=== PATIENT | female | born 1940 | race Caucasian/White ===

== ENCOUNTER 2022-02-24 11:00 | Inpatient (IN) ==
--- NOTE | 2022-02-24 11:55 | Emergency Department Note ---
Impression & Plan Pulmonary edema, Hypoxemia, Acute dyspnea, Pulmonary nodule ED Provider Note NAME: BRYAN CORNEJO AGE: 81 SEX: F : 1940 ARRIVES VIA: Walk-In INFORMANT: Patient, ED PROVIDER(S): Dell De Oliveira MD Chief Complaint: Abdominal discomfort, shortness of breath, cough HPI: Patient presents with multiple concerns today including abdominal pain nausea shortness of breath and cough. The patient initially began having symptoms approximate 1 week ago and had been seen at [facility] for flulike symptoms and had been prescribed amoxicillin. The patient states that her symptoms been fairly constant with really no improvement overall. The patient states that she does feel better in the mornings but this seems to worsen throughout the day. Patient states that her cough is nonproductive. The patient has been more fatigable with decreased p.o. intake is trying to take liquids down but is certainly not eating as much. Patient is not taking anything other than the amoxicillin for her symptoms. The patient denies any dysuria or hematuria the patient's had a recent normal bowel movement. Patient denies any vomiting but has had nausea. No chest pains. Patient denies any leg swelling or calf pain. No history of DVT or PE. Patient states that she does have some upper abdominal discomfort but does not qualify this as pain. Patient does not use alcohol. The patient has no prior history of heart or lung disease and currently does not have a PCP. ROS: See HPI for pertinent positives and negatives. A total of 10 systems were reviewed and otherwise negative. Past medical history: See below Surgical history: See below Social history: See below Physical Exam: GENERAL: NAD, wearing a mask, non-toxic. EYE EXAM: Normal conjunctiva. PERRL, no anisocoria and EOM's grossly intact w/o pain. NECK: Supple, no nuchal rigidity, no adenopathy, non-tender. No signs of meningismus. FROM of the neck with good chin to chest and neck extension. No stridor. LUNGS: Clear to auscultation. Normal chest wall mechanics. HEART: NSR, no MRG. ABDOMEN: Abdomen soft, non-tender, normo-active bowel sounds, no masses, no rebound or guarding. BACK: No CVA TTP. SKIN: No rashes and no bruising. UPPER EXTREMITIES: Upper extremities are grossly normal. LOWER EXTREMITIES: Grossly normal, no edema. NEURO EXAM: A&O x3, cranial nerves II-XII grossly intact, normal speech, moves all 4 extremities. Differential diagnoses: Appendicitis, ovarian cyst, ovarian torsion, ectopic , TOA, PID, infections, diverticulitis, UTI, obstruction, mesenteric ischemia, aortic pathology, inflammatory bowel disease, renal colic, PUD, pancreatitis, biliary pathology, hernia, volvulus, constipation, as well as other pathologies. Course: Patient was seen and evaluated the bedside. Full history physical exam was performed. EKG interpreted by me Normal sinus rhythm, rate 91, normal intervals, normal axis, ST depressions in the lateral leads. No priors for comparison. Imaging Studies: See Below Cardiac monitoring: An order was placed for continuous cardiac monitoring. The monitor shows a rate of 67 with sinus rhythm. MDM: Blood work was obtained and the patient did have a CT of the abdomen pelvis completed, COVID swab and chest x-ray. EKG and troponin obtained to rule out possible atypical chest pain symptoms. The patient has no prior history of heart or lung disease per patient. Patient did receive IV fluids and IV Zofran. The patient has a normal white count with mild anemia hemoglobin 11.6 with mild thrombocytopenia at 103. Kidney function unremarkable but with hypokalemia 3.3. The patient does have mild transaminitis. Patient's urinalysis does not show evidence of obvious infection and COVID is negative. The patient's initial chest film does show concern for possible pneumonitis versus pulmonary edema. CT abdomen pelvis shows no bowel obstruction with a normal appendix. The patie nt does have some cardiomegaly with pulmonary edema and trace pleural effusions. The patient also does have a pulmonary nodule. I did have the patient undergo an ambulatory pulse ox trial and the patient did desat to 84%. At rest the patient's sats in the low 90s. The patient does not appear in respiratory distress at rest. Patient was ordered a dose of Lasix and the patient was admitted to the medicine service by Dr. Gonzalez. A BNP was ordered and this is elevated at 415. Past Med/Surg History Medical History (Updated 02/24/22 @ 17:48 by Dell De Oliveira MD) Meniere disease Surgical History (Updated 02/24/22 @ 17:47 by Dell De Oliveira MD) No pertinent past surgical history Social History (Updated 02/24/22 @ 17:47 by Dell De Oliveira MD) Smoking Status: Never smoker Hx Alcohol Use: No Hx Substance Use: No Feels Safe at Home: Yes Allergies Allergies Allergy/AdvReac Type Severity Reaction Status Date / Time No Known Allergies Allergy Verified 02/24/22 15:59 Home Meds Home Medications Medication Instructions Recorded Confirmed amoxicillin 875 mg tablet 875 mg PO BID 02/24/22 02/24/22 magnesium 250 mg tablet 0 mg PO DAILY 02/24/22 02/24/22 multivitamin 1 tab PO DAILY 02/24/22 02/24/22 niacin 250 mg tablet 0 mg PO DAILY 02/24/22 02/24/22 Results & Data (ED) Vital Signs Vital Signs - 24 hr 02/24/22 11:17 02/24/22 11:01 02/24/22 12:23 Temperature 36.3 C L Temperature Source Temporal Artery Scan Pulse Rate 97 H 72 Pulse Rate [Apical] 76 Respiratory Rate 20 16 20 Respiratory Effort / Characteristics Non-Labored Respiratory Depth Normal Blood Pressure 179/98 H Blood Pressure [Left Arm] 179/96 H Blood Pressure Mean 125 Blood Pressure Mean [Left Arm] 123 Pulse Oximetry 95 97 92 Oxygen Delivery Method Room Air Room Air Sepsis Recent Fever Within 48 Hours No Sepsis New/Unexplained Change in Mental Status N/A Sepsis Action Taken by Nursing No Action Required 02/24/22 13:04 02/24/22 15:00 Temperature Temperature Source Pulse Rate Pulse Rate [Apical] 66 Respiratory Rate 16 20 Respiratory Effort / Characteristics Respiratory Depth Blood Pressure Blood Pressure [Left Arm] 159/83 H Blood Pressure Mean Blood Pressure Mean [Left Arm] 108 Pulse Oximetry 91 84 L Oxygen Delivery Method Room Air Sepsis Recent Fever Within 48 Hours Sepsis New/Unexplained Change in Mental Status Sepsis Action Taken by Snf Medications Current Medication List: was personally reviewed by me Laboratory Data Attestation: I reviewed the patient's lab results. Result diagrams: 02/24/22 11:54 02/24/22 11:54 Lab Results 02/24/22 02/24/22 02/24/22 Range/Units 11:23 11:54 11:54 WBC 8.83 (4.8-10.8) K/ul RBC 3.72 L (3.93-5.22) M/uL Hgb 11.6 L (12.0-16.0) g/dl Hct 34.7 (34.1-44.9) % MCV 93.3 (80.0-100.0) fL MCH 31.2 (25.0-34.0) pg MCHC 33.4 (32.0-36.0) g/dL RDW Std Deviation 46.7 H (36.4-46.3) fL RDW Coeff of Yeny 13.7 (11.5-14.5) % Plt Count 103 L (130-400) K/uL MPV 10.8 (9.4-12.3) fL Neutrophils % (Manual) 45 % Lymphocytes % (Manual) 14 % Reactive Lymphs % (Man) 40 % Monocytes % (Manual) 1 % Neutrophils # (Manual) 3.97 (1.4-6.5) K/uL Total Absolute Neuts 3.97 (1.4-6.5) K/uL Lymphocytes # (Manual) 1.24 (1.2-3.4) K/uL Reactive Lymphs # 3.53 K/uL Total Abs Lymphocytes 4.77 H (1.2-3.4) K/uL Monocytes # (Manual) 0.09 L (0.24-0.82) K/uL Sodium 140 (136-145) mmol/L Potassium 3.3 L (3.5-5.1) mmol/L Chloride 102 (98-107) mmol/L Carbon Dioxide 29 (21-32) mmol/L Anion Gap 9 (3-11) BUN 15 (6-23) mg/dl Creatinine 0.63 (0.6-1.2) mg/dl Est Cr Clr Drug Dosing Not Reportable Est GFR ( Amer) 96.1 ml/min Est GFR (Non-Af Amer) 82.9 ml/min BUN/Creatinine Ratio 23.8 H (10-20) Glucose 104 H (70-99(Fasting)) mg/dl Calcium 9.2 (8.5-10.1) mg/dl Total Bilirubin 0.7 (0.2-1.0) mg/dl AST 78 H (13-39) U/L ALT 93 H (7-52) U/L Alkaline Phosphatase 105 H (34-104) U/L Troponin I High Sens 7.9 (0-14) pg/ml B-Natriuretic Peptide (0-100) pg/ml Total Protein 7.7 (6.0-8.3) gm/dl Albumin 3.5 (3.4-5.0) gm/dl Globulin 4.2 H (2.5-4.0) gm/dl Albumin/Globulin Ratio 0.8 L (0.9-2) Lipase 16 (11-82) U/L Urine Color Urine Appearance (Clear) Urine pH (4.5-7.5) Ur Specific [place] (1.000-1.030) Urine Protein (Negative) Urine Glucose (UA) (Negative) Urine Ketones (Negative) Urine Blood (Negative) Urine Nitrite (Negative) Urine Bilirubin (Negative) Urine Urobilinogen (Negative) Ur Leukocyte Esterase (Negative) SARS-CoV-2, RNA, NAAT NEGATIVE (NEGATIVE) 02/24/22 02/24/22 Range/Units 13:49 15:53 WBC (4.8-10.8) K/ul RBC (3.93-5.22) M/uL Hgb (12.0-16.0) g/dl Hct (34.1-44.9) % MCV (80.0-100.0) fL MCH (25.0-34.0) pg MCHC (32.0-36.0) g/dL RDW Std Deviation (36.4-46.3) fL RDW Coeff of Yeny (11.5-14.5) % Plt Count (130-400) K/uL MPV (9.4-12.3) fL Neutrophils % (Manual) % Lymphocytes % (Manual) % Reactive Lymphs % (Man) % Monocytes % (Manual) % Neutrophils # (Manual) (1.4-6.5) K/uL Total Absolute Neuts (1.4-6.5) K/uL Lymphocytes # (Manual) (1.2-3.4) K/uL Reactive Lymphs # K/uL Total Abs Lymphocytes (1.2-3.4) K/uL Monocytes # (Manual) (0.24-0.82) K/uL Sodium (136-145) mmol/L Potassium (3.5-5.1) mmol/L Chloride (98-107) mmol/L Carbon Dioxide (21-32) mmol/L Anion Gap (3-11) BUN (6-23) mg/dl Creatinine (0.6-1.2) mg/dl Est Cr Clr Drug Dosing Est GFR ( Amer) ml/min Est GFR (Non-Af Amer) ml/min BUN/Creatinine Ratio (10-20) Glucose (70-99(Fasting)) mg/dl Calcium (8.5-10.1) mg/dl Total Bilirubin (0.2-1.0) mg/dl AST (13-39) U/L ALT (7-52) U/L Alkaline Phosphatase (34-104) U/L Troponin I High Sens (0-14) pg/ml B-Natriuretic Peptide 415 H (0-100) pg/ml Total Protein (6.0-8.3) gm/dl Albumin (3.4-5.0) gm/dl Globulin (2.5-4.0) gm/dl Albumin/Globulin Ratio (0.9-2) Lipase (11-82) U/L Urine Color Yellow Urine Appearance Clear (Clear) Urine pH 5.5 (4.5-7.5) Ur Specific [place] 1.008 (1.000-1.030) Urine Protein Negative (Negative) Urine Glucose (UA) Negative (Negative) Urine Ketones Negative (Negative) Urine Blood Negative (Negative) Urine Nitrite Negative (Negative) Urine Bilirubin Negative (Negative) Urine Urobilinogen Negative (Negative) Ur Leukocyte Esterase Negative (Negative) SARS-CoV-2, RNA, NAAT (NEGATIVE) Administered Medications Discontinued Medications Furosemide (Furosemide 40 Mg/4 Ml Vial) 40 mg IV ONE ONE Stop: 02/24/22 15:10 Last Admin: 02/24/22 15:29 Dose: 40 mg Documented By: JENNIFER Sodium Chloride (Nss 1000ml) 1,000 mls @ 999 mls/hr IV .Q1H1M STA Stop: 02/24/22 13:13 Last Admin: 02/24/22 12:27 Dose: 999 mls/hr Documented By: JENNIFER Ioversol (Ioversol 350 Mg 100ml Prefilled Syringe) 93 ml IV ONCE ONE Stop: 02/24/22 13:52 Last Admin: 02/24/22 13:51 Dose: 93 ml Documented By: ÁNGEL Losartan Potassium (Losartan Potassium 25 Mg Tab) 25 mg PO NOW STA Stop: 02/24/22 16:03 Last Admin: 02/24/22 16:17 Dose: 25 mg Documented By: JENNIFER Ondansetron HCl (Ondansetron Inj 2 Mg/Ml 2 Ml Vial) 4 mg IV NOW STA Stop: 02/24/22 12:14 Last Admin: 02/24/22 12:27 Dose: 4 mg Documented By: JENNIFER Imaging Data Radiologist's Impression: Abdomen/Pelvis CT 02/24/22 12:[address] WITH IV CONTRAST CT DOSE: 309.39 mGy.cm HISTORY: Acute upper abdominal pain upper ab pain TECHNIQUE: Multiaxial CT images of the abdomen and pelvis were performed following the IV administration of 93 cc of Optiray, A dose lowering technique was utilized adhering to the principles of ALARA. COMPARISON STUDY: Chest radiograph of same day FINDINGS: Cardiomegaly. Partially imaged 1.5 cm nodular opacity of the right middle lobe, image 6 series 3. Intralobular septal thickening with subsegmental bibasilar atelectasis. Trace pleural effusions. There is no pneumatosis or pneumoperitoneum. The spleen is enlarged measuring up to 13.4 cm in length. Unremarkable pancreas and adrenal glands. The gallbladder is unremarkable. Portal edema is likely secondary to overhydration. The liver is enlarged measuring up to 19.4 cm in length. Patency of the hepatic and portal veins. Symmetric enhancement of the kidneys. No hydronephrosis. Nonspecific urinary bladder wall thickening. No adnexal mass lesions identified. Atherosclerosis of the aorta without aneurysm. There is no lymphadenopathy identified. Mild nonspecific distal esophageal wall thickening. No bowel obstruction. Noninflamed appendix. Tiny fat filled umbilical hernia, diastases of 10 mm. Unremarkable soft tissues. Degenerative changes of the spine, pelvis and hips. IMPRESSION: 1. No bowel obstruction or bowel wall thickening. Normal appendix. 2. Hepatosplenomegaly. 3. Cardiomegaly with pulmonary edema and trace pleural effusions. 4. Partially imaged 1.5 cm nodular opacity of the right middle lobe. 3 month follow-up chest CT recommended. 5. Additional findings as above. ACT 112: Negative or not required by law. The above report was generated using voice recognition software. It may contain grammatical, syntax or spelling errors. Electronically signed by: Dharmesh Estrada M.D. 02/24/2022 2:32 PM Chest X-Ray 02/24/22 12:13 XR chest 1V portable HISTORY: 81 years-old Female cough acute cough COMPARISON: None TECHNIQUE: AP view of the chest FINDINGS: Cardiac silhouette is enlarged. Pulmonary vascular congestion with mild interstitial coarsening. No pneumothorax, large pleural effusion or lobar airspace consolidation. Degenerative changes of the shoulders and spine. IMPRESSION: Cardiomegaly with interstitial coarsening suggestive of pulmonary edema versus interstitial pneumonitis. ACT 112: Negative or not required by law. The above report was generated using voice recognition software. It may contain grammatical, syntax or spelling errors. Electronically signed by: Dharmesh Estrada M.D. 02/24/2022 1:18 PM Discharge Plan Visit Data Chief Complaint: Abdominal Pain Stated Complaint: ABDOMINAL PAIN, FLU-LIKE SYMPTOMS ED Provider: Dell De Oliveira Discharge Problem: Pulmonary edema, Hypoxemia, Acute dyspnea, Pulmonary nodule Patient Disposition: Admitted As Inpatient Forms Stand Alone Forms: [facility] Prescriptions Prescriptions: No Action multivitamin [Hair,Nails and Skin Vitamin] Tablet 1 tab PO DAILY amoxicillin 875 mg tablet 875 mg PO BID Rx Instructions: ORDERED 02/22/22 FOR 10 DAYS. magnesium 250 mg Tablet 0 mg PO DAILY Rx Instructions: PT UNSURE OF STRENGTH niacin 250 mg Tablet 0 mg PO DAILY Rx Instructions: PT UNSURE OF STRENGTH Referrals Referrals: PCP,NO [Primary Care Provider] -
[2022-02-24] MEDS ORDERED: ONDANSETRON INJ 2 MG/ML 2 ML VIAL IV STA (12:13)
[2022-02-24] MEDS ORDERED: SODIUM CHLORIDE 0.9% 1000ML 1,000 ML IV STA (12:13)
[2022-02-24 12:40] LABS: Hematocrit (blood only) 34.7 % (34.1-44.9); Hemoglobin 11.6 g/dl (12.0-16.0); Mean Corpuscular Hemoglobin 31.2 pg (25.0-34.0); Mean Corpuscular Hgb Conc 33.4 g/dL (32.0-36.0); Mean Corpuscular Volume 93.3 fL (80.0-100.0); Mean Platelet Volume 10.8 fL (9.4-12.3); Platelet Count 103 K/uL (130-400); RDW Coefficient of Variation 13.7 % (11.5-14.5); RDW Standard Deviation 46.7 fL (36.4-46.3); Red Blood Count 3.72 M/uL (3.93-5.22); White Blood Count 8.83 K/ul (4.8-10.8)
[2022-02-24 13:08] LABS: Alanine Aminotransferase 93 U/L (7-52); Albumin Globulin Ratio 0.8 (0.9-2); Albumin Level 3.5 gm/dl (3.4-5.0); Alkaline Phosphatase 105 U/L (34-104); Anion Gap 9 (3-11); Aspartate Aminotransferase 78 U/L (13-39); BUN Creatinine Ratio 23.8 (10-20); Bilirubin,Total 0.7 mg/dl (0.2-1.0); Blood Urea Nitrogen 15 mg/dl (6-23); Calcium 9.2 mg/dl (8.5-10.1); Carbon Dioxide 29 mmol/L (21-32); Chloride 102 mmol/L (98-107); Est GFR (African American) 96.1 ml/min; Est GFR (Non-African American) 82.9 ml/min; Globulin 4.2 gm/dl (2.5-4.0); Glucose 104 mg/dl (70-99(Fasting)); Lipase 16 U/L (11-82); Potassium 3.3 mmol/L (3.5-5.1); Sodium 140 mmol/L (136-145); Total Protein 7.7 gm/dl (6.0-8.3)
[2022-02-24 13:09] LABS: Troponin I High Sensitivity 7.9 pg/ml (0-14)
[2022-02-24 13:10] LABS: ALC (manual) 4.77 K/uL (1.2-3.4); ANC (manual) 3.97 K/uL (1.4-6.5); Lymphocytes # (manual) 1.24 K/uL (1.2-3.4); Lymphocytes % (manual) 14 %; Monocytes # (manual) 0.09 K/uL (0.24-0.82); Monocytes % (manual) 1 %; Neutrophils # (manual) 3.97 K/uL (1.4-6.5); Neutrophils % (manual) 45 %; Reactive Lymphocytes # (manual) 3.53 K/uL; Reactive Lymphocytes % (manual) 40 %
--- NOTE | 2022-02-24 13:19 | XRay Report ---
XR chest 1V portable HISTORY: 81 years-old Female cough acute cough COMPARISON: None TECHNIQUE: AP view of the chest FINDINGS: Cardiac silhouette is enlarged. Pulmonary vascular congestion with mild interstitial coarsening. No p neumothorax, large pleural effusion or lobar airspace consolidation. Degenerative changes of the shou lders and spine. IMPRESSION: Cardiomegaly with interstitial coarsening suggestive of pulmonary edema versus interstiti al pneumonitis. ACT 112: Negative or not required by law. The above report was generated using voice recognition software. It may contain grammatical, syntax o r spelling errors. Electronically signed by: Dharmesh Estrada M.D. 02/24/2022 1:18 PM
[2022-02-24] MEDS ORDERED: IOVERSOL 350 MG 100mL Prefilled Syringe IV ONE (13:51)
[2022-02-24 13:56] LABS: Appearance Urine Clear (Clear); Bilirubin Urine Negative (Negative); Blood Urine Negative (Negative); Color Urine Yellow; Glucose Urine UA Negative (Negative); Ketones Urine Negative (Negative); Leukocyte Esterase Urine Negative (Negative); Nitrite Urine Negative (Negative); Protein Urine Negative (Negative); Specific Gravity Urine 1.008 (1.000-1.030); Urobilinogen Urine Negative (Negative); pH Urine 5.5 (4.5-7.5)
--- NOTE | 2022-02-24 14:35 | CT Scan Report ---
ABDOMEN AND PELVIS CT WITH IV CONTRAST CT DOSE: 309.39 mGy.cm HISTORY: Acute upper abdominal pain upper ab pain TECHNIQUE: Multiaxial CT images of the abdomen and pelvis were performed following the IV administrat ion of 93 cc of Optiray, A dose lowering technique was utilized adhering to the principles of ALARA. COMPARISON STUDY: Chest radiograph of same day FINDINGS: Cardiomegaly. Partially imaged 1.5 cm nodular opacity of the right middle lobe, image 6 ser ies 3. Intralobular septal thickening with subsegmental bibasilar atelectasis. Trace pleural effusion s. There is no pneumatosis or pneumoperitoneum. The spleen is enlarged measuring up to 13.4 cm in miguel gth. Unremarkable pancreas and adrenal glands. The gallbladder is unremarkable. Portal edema is likely secondary to overhydration. The liver is enlarged measuring up to 19.4 cm in l ength. Patency of the hepatic and portal veins. Symmetric enhancement of the kidneys. No hydronephros is. Nonspecific urinary bladder wall thickening. No adnexal mass lesions identified. Atherosclerosis of the aorta without aneurysm. There is no lymphadenopathy identified. Mild nonspecific distal esophageal wall thickening. No bowel obstruction. Noninflamed appendix. Tiny fat filled umbilical hernia, diastases of 10 mm. Unremarkable soft tissues. Degenerative changes of t he spine, pelvis and hips. IMPRESSION: 1. No bowel obstruction or bowel wall thickening. Normal appendix. 2. Hepatosplenomegaly. 3. Cardiomegaly with pulmonary edema and trace pleural effusions. 4. Partially imaged 1.5 cm nodular opacity of the right middle lobe. 3 month follow-up chest CT recom mended. 5. Additional findings as above. ACT 112: Negative or not required by law. The above report was generated using voice recognition software. It may contain grammatical, syntax o r spelling errors. Electronically signed by: Dharmesh sEtrada M.D. 02/24/2022 2:32 PM
[2022-02-24] MEDS ORDERED: FUROSEMIDE 40 MG/4 ML VIAL IV ONE (15:09)
[2022-02-24] MEDS ORDERED: ACETAMINOPHEN 325 MG TAB PO PRN (15:56)
[2022-02-24] MEDS ORDERED: POLYETHYLENE (MIRALAX) 17 GM PACK PO PRN (15:56)
[2022-02-24] MEDS ORDERED: MAGNESIUM HYDROXIDE SUSP 30 ML UDC PO PRN (15:56)
--- NOTE | 2022-02-24 15:58 | History & Physical Report ---
Date of Service February 24, 2022 Assessment & Plan (1) Pulmonary edema: Plan Not feeling well Dyspnea on exertion Stomach upset Pulmonary edema Patient came in with feeling of not feeling well, with fever/chills/myalgia a week ago [employer], was prescribed amoxicillin on Friday at [facility]. In the ED, patient was saturating in low 90s, was saturating at 84% on room air with ambulation. Admitting CXR with cardiomegaly with interstitial coarsening suggestive of pulmonary edema versus interstitial pneumonitis. Admitting CTAP with cardiomegaly with pulmonary edema and trace pleural effusions. Partially imaged 1.5 cm nodule opacity of the right middle lobe. 3 months follow-up CT chest recommended. Patient received a dose of Lasix in the ED. Admitting troponin and EKG WNL, patient with no chest pain. Stomach upset likely secondary to amoxicillin use, will monitor patient off of antibiotic while in hospital. Follow-up BNP, echo ordered, possible cardiology consult after echo result. Reassess for Lasix in the morning after reevaluation. Monitor and replete electrolytes as appropriate. HTN: Blood pressure elevated at presentation, will start small dose of losartan. Continue to monitor. Right middle lobe lung nodule: See above, 3-month follow-up CT chest recommended. DVT prophylaxis: Lovenox History of Present Illness Chief Complaint: Not feeling well 1 week [employer] Primary Care Provider: NO PCP 81-year-old lady with past medical history of Mnire's disease [on triamterene HCTZ in the past], no other known medical condition, not on any home medications currently presented to ED 02/24 with complaint of not feeling well since 1 weeks [employer]. Patient started feeling some low-grade fever with chills and myalgia almost 7 days ago [employer], tried different [id number] medication with no relief, went to [facility] Friday where she was prescribed amoxicillin, patient still complaining of feeling about the same, upper belly discomfort, feeling tired, dyspnea with exertion. Per discussion with the ED doctor, patient is maintaining saturation in low 90s on room air at rest, and 84% on room air at ambulation. Patient denies any chest pain or tightness, any sore throat, any cough, any acute changes in bowel or bladder habit, reports appetite has been good. Patient denies any known cardiac history in the family, no diabetic history in the family. Patient denies any use of smoking tobacco/using alcohol/using recreational drugs. Allergies Allergy/AdvReac Type Severity Reaction Status Date / Time No Known Allergies Allergy Verified 02/24/22 15:59 Home Medications Medication Instructions Recorded Confirmed Type amoxicillin 875 mg tablet 875 mg PO BID 02/24/22 02/24/22 History magnesium 250 mg tablet 0 mg PO DAILY 02/24/22 02/24/22 History multivitamin 1 tab PO DAILY 02/24/22 02/24/22 History niacin 250 mg tablet 0 mg PO DAILY 02/24/22 02/24/22 History Past Med/Surg History Social History Smoking Status: Never smoker Feels Safe at Home: Yes Review of Systems Review of Systems: Negative otherwise mentioned in HPI. Physical Exam Physical Exam: GENERAL: Alert and oriented x3. NAD, on RA. HEENT: No pallor, no icterus. Pupils equal, round and reactive to light. Oral mucosa moist. NECK: No JVD, no neck masses. HEART: S1 and S2 heard. Regular rate and rhythm. No murmur, no gallop. RESPIRATORY SYSTEM: Normal AP diameter. No accessory muscle use. No wheezing, no crackles. ABDOMEN: Soft, bowel sounds present, nontender, no distention. CENTRAL NERVOUS SYSTEM: No facial droop. Speech is clear. Obeys simple commands. Moves extremities. EXTREMITIES: No edema, no erythema seen. Results & Data Results & Data ([facility]) Vital Signs (Past 12 Hours) Vital Signs Temp Pulse Pulse Resp BP BP Pulse Ox 02/24/22 15:00 20 84 L 02/24/22 13:04 66 16 159/83 H 91 02/24/22 12:23 72 20 92 02/24/22 11:01 76 16 179/96 H 97 02/24/22 11:17 36.3 C L 97 H 20 179/98 H 95 O2 Del Method 02/24/22 15:00 Room Air 02/24/22 13:04 02/24/22 12:23 Room Air 02/24/22 11:01 02/24/22 11:17 Room Air
[2022-02-24] MEDS ORDERED: LOSARTAN POTASSIUM 25 MG TAB PO STA (16:02)
[2022-02-24] MEDS ORDERED: Patient's HEIGHT &/or WEIGHT Needed SCH (16:30)
[2022-02-24] MEDS: ADVANCED PROBIOTIC 1250 MG CAPSULE PO SCH (21:53)
--- NOTE | 2022-02-25 05:55 | Electrocardiogram Report ---
Test Reason : Blood Pressure : / mmHG Vent. Rate : 091 BPM Atrial Rate : 091 BPM P-R Int : 156 ms QRS Dur : 084 ms QT Int : 348 ms P-R-T Axes : 065 -03 055 degrees QTc Int : 428 ms Normal sinus rhythm Cannot rule out Anterior infarct , age undetermined Nonspecific ST abnormality Abnormal ECG No previous ECGs available Confirmed by Joselito Ayala ([id number]) on 02/25/2022 5:55:22 AM Referred By: REFERRED SELF Confirmed By:Joselito Ayala
[2022-02-25] MEDS ORDERED: POTASSIUM CHLORIDE CRTAB 20 MEQ TABCR PO STA ×2 (07:59→15:31)
[2022-02-25] MEDS: ADVANCED PROBIOTIC 1250 MG CAPSULE PO SCH (08:14)
[2022-02-25] MEDS: LOSARTAN POTASSIUM 25 MG TAB PO SCH (08:15)
[2022-02-25] MEDS: ENOXAPARIN INJ 40 MG/0.4 ML SYR SQ SCH (08:15)
[2022-02-25] MEDS: MULTIVITAMIN TAB PO SCH (08:15)
[2022-02-25] MEDS: MAGNESIUM OXIDE 400 MG TAB PO SCH (08:15)
[2022-02-25] MEDS ORDERED: FUROSEMIDE INJ 20 MG/2 ML VIAL IV ONE (09:54)
[2022-02-25 10:12] LABS: Hematocrit (blood only) 33.4 % (34.1-44.9); Hemoglobin 11.4 g/dl (12.0-16.0); Mean Corpuscular Hemoglobin 30.8 pg (25.0-34.0); Mean Corpuscular Hgb Conc 34.1 g/dL (32.0-36.0); Mean Corpuscular Volume 90.3 fL (80.0-100.0); Mean Platelet Volume 10.1 fL (9.4-12.3); Platelet Count 159 K/uL (130-400); RDW Coefficient of Variation 13.6 % (11.5-14.5); RDW Standard Deviation 44.9 fL (36.4-46.3); White Blood Count 7.28 K/ul (4.8-10.8)
[2022-02-25 10:39] LABS: BUN Creatinine Ratio 18.3 (10-20); Calcium 9.2 mg/dl (8.5-10.1); Chol HDL Ratio 5.9 (0-5); Creatinine Clr Calc Pharmacy 54.6 ml/min; Est GFR (African American) 91.3 ml/min; Est GFR (Non-African American) 78.8 ml/min; Magnesium 1.7 mg/dl (1.7-2.4); Phosphorus 3.1 mg/dl (2.5-4.9); Potassium 3.4 mmol/L (3.5-5.1)
--- NOTE | 2022-02-25 15:35 | Electrocardiogram Report ---
Test Reason : Blood Pressure : / mmHG Vent. Rate : 061 BPM Atrial Rate : 061 BPM P-R Int : 136 ms QRS Dur : 086 ms QT Int : 432 ms P-R-T Axes : 069 019 070 degrees QTc Int : 434 ms Normal sinus rhythm with sinus arrhythmia Low voltage QRS Borderline ECG When compared with ECG of 24-FEB-2022 11:34, Vent. rate has decreased BY 30 BPM Confirmed by Kamaljit Pop ([id number]) on 02/25/2022 3:35:24 PM Referred By: REFERRED SELF Confirmed By:Kamaljit Pop
--- NOTE | 2022-02-25 15:37 | Hospitalist Progress Note ---
Date of Service February 25, 2022 Assessment & Plan (1) Pulmonary edema: Plan Not feeling well Dyspnea on exertion Stomach upset Pulmonary edema, etiology not known at the moment, likely secondary to excessive hydration due to general illness. Patient came in with feeling of not feeling well, with fever/chills/myalgia a week ago [employer], was prescribed amoxicillin on Friday at [employer]. In the ED, patient was saturating in low 90s, was saturating at 84% on room air with ambulation. Admitting CXR with cardiomegaly with interstitial coarsening suggestive of pulmonary edema versus interstitial pneumonitis. Admitting CTAP with cardiomegaly with pulmonary edema and trace pleural effusions. Partially imaged 1.5 cm nodule opacity of the right middle lobe. 3 months follow-up CT chest recommended. Patient received a dose of Lasix in the ED. Admitting troponin and EKG WNL, patient with no chest pain. Stomach upset likely secondary to amoxicillin use, will monitor patient off of antibiotic while in hospital --> patient reports resolution of stomach upset. BNP elevated at 415, echo done with ejection fraction of 60 to 65%, normal left ventricular systolic function/normal LV size. Patient with some bibasilar rales today, given another dose of IV Lasix, monitor and replete electrolytes as appropriate. Fluid restriction instituted for the time being. Reassess for Lasix in the morning after reevaluation. Patient reports improving dyspnea on exertion. Likely 2 step test tomorrow. HTN: Blood pressure elevated at presentation, will start small dose of losartan. Continue to monitor. Blood pressure has been better controlled. Right middle lobe lung nodule: See above, 3-month follow-up CT chest recommended . DVT prophylaxis: Lovenox PT/OT, CM to assist with DC planning. Likely will need two-step test prior to discharge tomorrow. Admission and Anticipated Discharge Date Admission Date: February 24, 2022 Subjective Patient seen and examined at bedside as a follow-up for pulmonary edema and weakness and dyspnea on exertion. Patient was lying in bed, on room air, NAD, denied any new acute event overnight. Patient reports eating okay and moving bowels okay. Patient reports feeling better, patient denies any stomach upset today, patient reports less short of breath with walking around today. Patient denies any fever/chills/headache/dizziness/sore throat/cough/acute changes in her bowel or bladder habits/other review of symptoms. Physical Exam Physical Exam: GENERAL: Alert and oriented x3. NAD, on RA. HEENT: No pallor, no icterus. Pupils equal, round and reactive to light. Oral mucosa moist. NECK: No JVD, no neck masses. HEART: S1 and S2 heard. Regular rate and rhythm. No murmur, no gallop. RESPIRATORY SYSTEM: Normal AP diameter. No accessory muscle use. No wheezing, b/b rales. ABDOMEN: Soft, bowel sounds present, nontender, no distention. CENTRAL NERVOUS SYSTEM: No facial droop. Speech is clear. Obeys simple commands. Moves extremities. EXTREMITIES: No edema, no erythema seen. Results & Data Results & Data ([facility]) Vital Signs (Past 12 Hours) Vital Signs Temp Pulse Resp BP Pulse Ox O2 Del Method 02/25/22 11:49 36.8 C 61 123/66 91 Room Air 02/25/22 09:53 Room Air 02/25/22 07:55 36.8 C 60 19 152/76 H 91 Room Air 02/25/22 04:10 36.5 C 57 L 18 123/69 90 Room Air
[2022-02-26] MEDS: ADVANCED PROBIOTIC 1250 MG CAPSULE PO SCH (07:40)
[2022-02-26] MEDS: LOSARTAN POTASSIUM 25 MG TAB PO SCH (07:40)
[2022-02-26] MEDS: ENOXAPARIN INJ 40 MG/0.4 ML SYR SQ SCH (07:40)
[2022-02-26] MEDS: MAGNESIUM OXIDE 400 MG TAB PO SCH (07:40)
[2022-02-26] MEDS: MULTIVITAMIN TAB PO SCH (07:40)
[2022-02-26 09:42] LABS: BUN Creatinine Ratio 19.7 (10-20); Calcium 9.2 mg/dl (8.5-10.1); Creatinine Clr Calc Pharmacy 50.7 ml/min; Est GFR (African American) 84.1 ml/min; Est GFR (Non-African American) 72.5 ml/min; Potassium 4.1 mmol/L (3.5-5.1)
--- NOTE | 2022-02-26 12:59 | Discharge Summary ---
Discharge Summary Date of Service February 26, 2022 Notes For Next Care Provider Patient will need PCP follow-up within a week time, and likely blood test CBC/CMP/magnesium level. Patient was found to have hypertension in hospital, patient was started on losartan, patient asked to maintain blood pressure log, patient will need evaluation/adjustment of her blood pressure medication. For her right middle lobe lung nodule, patient will need 3-month follow-up with CT chest. Medication Changes From Visit Losartan has been added. 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 Patient started feeling some low-grade fever with chills and myalgia almost 7 days ago [employer] SUPERVISOR, tried different [id number] medication with no relief, went to [email or web address] on Friday where she was prescribed amoxicillin, patient still complaining of feeling about the same, upper belly discomfort, feeling tired, dyspnea with exertion. Per discussion with the ED doctor, patient is maintaining saturation in low 90s on room air at rest, and 84% on room air at ambulation. Patient denies any chest pain or tightness, any sore throat, any cough, any acute changes in bowel or bladder habit, reports appetite has been good. Patient denies any known cardiac history in the family, no diabetic history in the family. Patient denies any use of smoking tobacco/using alcohol/using recreational drugs. Admission Exam Per Admitting Provider GENERAL: Alert and oriented x3. NAD, on RA. HEENT: No pallor, no icterus. Pupils equal, round and reactive to light. Oral mucosa moist. NECK: No JVD, no neck masses. HEART: S1 and S2 heard. Regular rate and rhythm. No murmur, no gallop. RESPIRATORY SYSTEM: Normal AP diameter. No accessory muscle use. No wheezing, no crackles. ABDOMEN: Soft, bowel sounds present, nontender, no distention. CENTRAL NERVOUS SYSTEM: No facial droop. Speech is clear. Obeys simple commands. Moves extremities. EXTREMITIES: No edema, no erythema seen. Principal Dx & Hospital Course #1 = Principal Diagnosis (1) Pulmonary edema: Plan 81-year-old lady was managed for the following while in hospital: Not feeling well Dyspnea on exertion Stomach upset Pulmonary edema, etiology not known at the moment, likely secondary to excessive hydration due to general illness. 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 In the ED, patient was saturating in low 90s, was saturating at 84% on room air with ambulation. Admitting CXR with cardiomegaly with interstitial coarsening suggestive of pulmonary edema versus interstitial pneumonitis. Admitting CTAP with cardiomegaly with pulmonary edema and trace pleural effusions. Partially imaged 1.5 cm nodule opacity of the right middle lobe. 3 months follow-up CT chest recommended. Patient received a dose of Lasix in the ED. Admitting troponin and EKG WNL, patient with no chest pain. Stomach upset likely secondary to amoxicillin use, will monitor patient off of antibiotic while in hospital --> patient reports resolution of stomach upset. Patient has been afebrile, no cough, no other signs of infection. BNP elevated at 415, echo done with ejection fraction of 60 to 65%, normal left ventricular systolic function/normal LV size. Patient with clear to auscultation, two-step oxygen test with no oxygen need, patient feels strong and better, patient would like to go home, electrolytes WNL. Patient to get blood test after PCP evaluation in a week time. HTN: Blood pressure elevated at presentation, started on small dose of losartan. Continue to monitor. Patient to maintain blood pressure log and further evaluation by PCP when she leaves the hospital setting, blood pressure slightly on the higher side still even with losartan. Right middle lobe lung nodule: See above, 3-month follow-up CT chest recommended . DVT prophylaxis: Lovenox PT/OT, CM to assist with DC planning. Likely will need two-step test prior to discharge tomorrow. Follow-up with your primary care physician within a week time and you will likely need blood test CBC/CMP/magnesium level. Because your blood pressure were high, you have been started on blood pressure medication losartan, as advised at the bedside maintain your blood pressure measurement twice a day and maintain a log to take to your primary care physician so that they can evaluate and adjust your blood pressure medications. You will need 3-month follow-up CT chest for your right middle lung lobe nodule. Take your medications as prescribed. Discharge Exam GENERAL: Alert and oriented x3. NAD, on RA. HEENT: No pallor, no icterus. Pupils equal, round and reactive to light. Oral mucosa moist. NECK: No JVD, no neck masses. HEART: S1 and S2 heard. Regular rate and rhythm. No murmur, no gallop. RESPIRATORY SYSTEM: Normal AP diameter. No accessory muscle use. No wheezing, b/b rales. ABDOMEN: Soft, bowel sounds present, nontender, no distention. CENTRAL NERVOUS SYSTEM: No facial droop. Speech is clear. Obeys simple comman ds. Moves extremities. EXTREMITIES: No edema, no erythema seen. Updated Medication List Medication Instructions Recorded Confirmed Type amoxicillin 875 mg tablet 875 mg PO BID 02/24/22 02/24/22 History magnesium 250 mg tablet 0 mg PO DAILY 02/24/22 02/24/22 History multivitamin 1 tab PO DAILY 02/24/22 02/24/22 History niacin 250 mg tablet 0 mg PO DAILY 02/24/22 02/24/22 History losartan 25 mg tablet 25 mg PO QAM #30 tabs 02/26/22 Rx Hospital Stay Data Consultations 02/24/22 15:23 ED Decision to Admit Stat Diagnostic Imagining Performed 02/24/22 12:13 CT abd pelvis IV con only Stat Pending Results Patient Have Any Pending Studies at Discharge: No Discharge Instructions Given to Patient (Per Discharging Provider) Follow-up with your primary care physician within a week time and you will likely need blood test CBC/CMP/magnesium level. Because your blood pressure were high, you have been started on blood pressure medication losartan, as advised at the bedside maintain your blood pressure measurement twice a day and maintain a log to take to your primary care physician so that they can evaluate and adjust your blood pressure medications. You will need 3-month follow-up CT chest for your right middle lung lobe nodule. Take your medications as prescribed. Total Time Total Time Spent Total Time Spent (In Minutes): 40
== END 2022-02-26 14:29 | disposition home or self-care (01) | DRG 189 ==
LOC: ED 11:00 → 2N 15:25 → EDINP 15:25 → 2N 21:08

== ENCOUNTER 2022-03-08 15:34 | Inpatient (IN) ==
--- NOTE | 2022-03-08 16:26 | Emergency Department Note ---
Impression & Plan Bilateral pulmonary embolism, Chest pain, Shortness of breath ED Provider Note NAME: BRYAN CORNEJO AGE: 81 SEX: F ARRIVES VIA: Walk-In INFORMANT: Patient ED PROVIDER(S): Jayy Gan MD CHIEF COMPLAINT: Chest pain PLAN: Disposition: Admit MEDICAL DECISION MAKING: The patient is a pleasant 81-year-old woman with a past medical history of Mnire's disease, hypertension recently diagnosed during recent admission last week, right middle lobe lung nodule seen on CT imaging last week who presents to the emergency department accompanied by her son for evaluation of shortness of breath and epigastric pain where she feels she gets food stuck sometimes. Patient reports her shortness of breath is not significantly changed from when she was in the hospital but denies any significant improvement. She had an elevated BNP 415 during her last hospitalization and had an echo performed which showed an LV EF of 60-65%, she had a moderately dilated right ventricle with moderately reduced right ventricular systolic function. Note was made of modera te pulmonary hypertension with estimated pulmonary artery pressure 45. On arrival patient is fatigued appearing but no acute distress, afebrile with O2 saturation 88% on room air placed on 2 L nasal cannula improving to the mid 90s. EKG without overt acute ischemia. CXR negative for acute cardiopulmonary process. WBC, H/H within normal limits. Platelets 114K similar to prior values. Chemistry without metabolic acidosis. Electrolytes without significant abnormality. AST 43, nonspecific and improved from prior. High-sensitivity troponin 7.1, within normal limits. BNP 73, improved from prior. Lipase within normal limits. Respiratory viral panel/bio fire was performed and this was nega tive. CT of the chest was performed and demonstrates numerous bilateral segmental and subsegmental pulmonary emboli. There is no pleural effusion or consolidation. Findings reviewed with the patient and her son at the bedside. Both in agreement plan for admission for further management. [facility]. Anticoagulation per admitting team. Triage Nursing notes reviewed and agree them. Prior medical records reviewed Vital Signs: reviewed and remarkable for no significant abnormalities Differential diagnosis: Cardiac ischemia, aortic dissection, pulmonary embolism, pneumothorax, pneumonia, pericarditis, myocarditis, esophageal rupture, GERD, cholecystitis, pancreatitis, musculoskeletal, as well as other pathologies. ER treatment provided: See below. Diagnostics interpreted by me: ECG: Sinus rhythm with PACs, 92 bpm, no overt ST elevation or depression, QTC 410, QRS 78 Cardiac Monitoring: An order for continuous cardiac monitoring was placed and demonstrated Sinus rhythm with PACs, 92 bpm. Laboratory studies: See below Imaging studies: See below Consultation(s): Case was discussed with Dr. Holder, [facility] hospitalist who will evaluate the patient for admission. HPI: The patient is a pleasant 81-year-old woman with a past medical history of Mnire's disease, hypertension recently diagnosed during recent admission last week, right middle lobe lung nodule seen on CT imaging last week who presents to the emergency department accompanied by her son for evaluation of shortness of breath and epigastric pain where she feels she gets food stuck sometimes. Patient reports her shortness of breath is not significantly changed from when she was in the hospital but denies any significant improvement. She had an elevated BNP 415 during her last hospitalization and had an echo performed which showed an LV EF of 60-65%, she had a moderately dilated right ventricle with moderately reduced right ventricular systolic function. Note was made of moderate pulmonary hypertension with estimated pulmonary artery pressure 45. ROS: See above HPI for pertinent positives & negatives. A total of 10 systems reviewed and were otherwise negative. VITALS:See Below PHYSICAL EXAMINATION: GENERAL: Awake, alert, fatigued-appearing, in no distress HENT: Normocephalic, atraumatic. Oropharynx with dry mucous membranes and otherwise unremarkable. EYES: Normal conjunctiva. Sclera non-icteric. NECK: Supple. No nuchal rigidity. FROM. No JVD. RESPIRATORY: Clear to auscultation. CARDIAC: Regular rate, normal rhythm. Extremities warm and well perfused. Pulses equal. ABDOMEN: Soft, non-distended. No tenderness to palpation. No rebound or guarding . No masses. RECTAL: Deferred. MUSCULOSKELETAL: Chest examination reveals no tenderness. The back is symmetrical on inspection without obvious abnormality. There is no CVA tenderness to palpation. No joint edema. LOWER EXTREMITIES: Calves are equal size bilaterally and non-tender. No edema. No discoloration. NEURO: Normal sensorium. No sensory or motor deficits noted. SKIN: No rash or jaundice noted. ED COURSE: Critical Care: I have personally spent greater than 35 minutes of critical care time in the direct management of this patient. This includes bedside care, interpretation of diagnostic studies, and testing, discussion with consultants, patient, and family members, and other required patient management activities. This 35 minutes is in excess of all separately billable procedures. Jayy Gan MD Past Med/Surg History Medical History Elevated blood pressure reading Meniere disease Pulmonary edema Surgical History No pertinent past surgical history Family History Brother Stroke Sister Breast cancer Mother Colorectal cancer Social History Smoking Status: Never smoker Hx Alcohol Use: No Hx Substance Use: No Preferred Language: Upper Sorbian Communication Ability: Effective [employer] Required: No Beliefs That Will Affect Care: None marital status: / Current Living Situation: Alone Feels Safe at Home: Yes Assistive Devices: None Allergies Allergies Allergy/AdvReac Type Severity Reaction Status Date / Time No Known Allergies Allergy Verified 03/08/22 18:24 Home Meds Home Medications Medication Instructions Recorded Confirmed multivitamin 1 tab PO DAILY 02/24/22 03/08/22 cholecalciferol (vitamin D3) 125 125 mcg PO DAILY 03/08/22 03/08/22 mcg (5,000 unit) tablet (Vitamin D3) magnesium oxide 500 mg tablet 500 mg PO DAILY 03/08/22 03/08/22 niacin 500 mg tablet 500 mg PO DAILY 03/08/22 03/08/22 Previous Rx's Medication Instructions Recorded losartan 25 mg tablet 25 mg PO QAM #30 tabs 02/26/22 Results & Data (ED) Vital Signs Vital Signs - 24 hr 03/08/22 15:41 03/08/22 15:55 03/08/22 15:55 Pulse Rate 90 Pulse Rate [Finger] 88 Pulse Rhythm Regular Pulse Rhythm [Finger] Regular Pulse Strength Normal Pulse Strength [Finger] Normal Respiratory Rate 20 20 Respiratory Effort / Characteristics Non-Labored Spontaneous Non-Labored Spontaneous Respiratory Depth Normal Normal Respiratory Pattern Regular Regular Blood Pressure 122/79 Blood Pressure [Left Arm] 133/73 Blood Pressure Mean 93 Blood Pressure Mean [Left Arm] 93 Blood Pressure Position Sitting Pulse Oximetry 96 91 91 Oxygen Delivery Method Room Air Room Air Room Air Oxygen Flow Rate Sepsis Recent Fever Within 48 Hours No Sepsis New/Unexplained Change in Mental Status No Sepsis Action Taken by Nursing No Action Required 03/08/22 16:47 03/08/22 17:34 03/08/22 19:00 Pulse Rate 86 Pulse Rate [Finger] 80 Pulse Rhythm Regular Pulse Rhythm [Finger] Irregular Regular Pulse Strength Pulse Strength [Finger] Normal Normal Respiratory Rate 20 19 18 Respiratory Effort / Characteristics Non-Labored Spontaneous Non-Labored Spontaneous Respiratory Depth Normal Normal Respiratory Pattern Regular Regular Blood Pressure Blood Pressure [Left Arm] 121/63 121/63 Blood Pressure Mean Blood Pressure Mean [Left Arm] 82 82 Blood Pressure Position Pulse Oximetry 88 L 99 99 Oxygen Delivery Method Room Air Nasal Cannula Nasal Cannula Oxygen Flow Rate 2 2 2 Sepsis Recent Fever Within 48 Hours Sepsis New/Unexplained Change in Mental Status Sepsis Action Taken by Nursing 03/08/22 21:00 Pulse Rate Pulse Rate [Finger] 78 Pulse Rhythm Pulse Rhythm [Finger] Regular Pulse Strength Pulse Strength [Finger] Normal Respiratory Rate 20 Respiratory Effort / Characteristics Non-Labored Spontaneous Respiratory Depth Normal Respiratory Pattern Regular Blood Pressure Blood Pressure [Left Arm] 131/76 Blood Pressure Mean Blood Pressure Mean [Left Arm] 94 Blood Pressure Position Pulse Oximetry 96 Oxygen Delivery Method Nasal Cannula Oxygen Flow Rate 2 Sepsis Recent Fever Within 48 Hours Sepsis New/Unexplained Change in Mental Status Sepsis Action Taken by Nursing Laboratory Data Attestation: I reviewed the patient's lab results. Result diagrams: 03/08/22 15:51 03/08/22 15:51 Lab Results 03/08/22 03/08/22 03/08/22 Range/Units 15:51 15:51 15:51 WBC 7.47 (4.8-10.8) K/ul RBC 4.02 (3.93-5.22) M/uL Hgb 12.2 (12.0-16.0) g/dl Hct 37.3 (34.1-44.9) % MCV 92.8 (80.0-100.0) fL MCH 30.3 (25.0-34.0) pg MCHC 32.7 (32.0-36.0) g/dL RDW Std Deviation 47.6 H (36.4-46.3) fL RDW Coeff of Yeny 13.9 (11.5-14.5) % Plt Count 114 L (130-400) K/uL MPV 11.5 (9.4-12.3) fL Immature Gran % (Auto) 0.4 % Neut % (Auto) 60.9 % Lymph % (Auto) 28.8 % Louisa % (Auto) 9.1 % Eos % (Auto) 0.3 % Baso % (Auto) 0.5 % Neut # (Auto) 4.55 (1.4-6.5) K/uL Lymph # (Auto) 2.15 (1.2-3.4) K/uL Louisa # (Auto) 0.68 (0.24-0.82) K/uL Eos # (Auto) 0.02 (0-0.50) K/uL Baso # (Auto) 0.04 (0-0.2) K/uL Immature Gran # (Auto) 0.03 H (0.00-0.02) K/uL Platelet Estimate Normal (Normal) APTT (21.0-31.0) Seconds PTT Ratio Sodium 133 L (136-145) mmol/L Potassium 3.9 (3.5-5.1) mmol/L Chloride 97 L (98-107) mmol/L Carbon Dioxide 26 (21-32) mmol/L Anion Gap 10 (3-11) BUN 22 (6-23) mg/dl Creatinine 1.10 (0.6-1.2) mg/dl Est Cr Clr Drug Dosing 36.3 ml/min Est GFR ( Amer) 53.8 ml/min Est GFR (Non-Af Amer) 46.4 ml/min BUN/Creatinine Ratio 20.0 (10-20) Glucose 122 H (70-99(Fasting)) mg/dl Calcium 9.4 (8.5-10.1) mg/dl Phosphorus 2.4 L (2.5-4.9) mg/dl Magnesium 1.9 (1.7-2.4) mg/dl Total Bilirubin 0.9 (0.2-1.0) mg/dl AST 43 H (13-39) U/L ALT 34 (7-52) U/L Alkaline Phosphatase 100 (34-104) U/L Troponin I High Sens 7.1 (0-14) pg/ml B-Natriuretic Peptide 73 (0-100) pg/ml Total Protein 8.3 (6.0-8.3) gm/dl Albumin 3.6 (3.4-5.0) gm/dl Globulin 4.7 H (2.5-4.0) gm/dl Albumin/Globulin Ratio 0.8 L (0.9-2) Lipase 20 (11-82) U/L Adenovirus (PCR) (NotDetected) B. pertussis DNA (PCR) (NotDetected) B.parapertussis DNA PCR (NotDetected) C. pneumoniae DNA (PCR) (NotDetected) Coronavirus OC43 (PCR) (NotDetected) Coronavirus HKU1 (PCR) (NotDetected) Coronavirus 229E (PCR) (NotDetected) SARS-CoV-2 (PCR) (NotDetected) Coronavirus NL63 (PCR) (NotDetected) Human Metapneumovir PCR (NotDetected) Influenza Type A (PCR) (NotDetected) Influenza Type B (PCR) (NotDetected) M. pneumoniae (PCR) (NotDetected) Parainfluenza 1 (PCR) (NotDetected) Parainfluenza 2 (PCR) (NotDetected) Parainfluenza 3 (PCR) (NotDetected) Parainfluenza 4 (PCR) (NotDetected) RSV (PCR) (NotDetected) Entero/Rhino (PCR) (NotDetected) 03/08/22 03/08/22 Range/Units 17:23 21:07 WBC (4.8-10.8) K/ul RBC (3.93-5.22) M/uL Hgb (12.0-16.0) g/dl Hct (34.1-44.9) % MCV (80.0-100.0) fL MCH (25.0-34.0) pg MCHC (32.0-36.0) g/dL RDW Std Deviation (36.4-46.3) fL RDW Coeff of Yeny (11.5-14.5) % Plt Count (130-400) K/uL MPV (9.4-12.3) fL Immature Gran % (Auto) % Neut % (Auto) % Lymph % (Auto) % Louisa % (Auto) % Eos % (Auto) % Baso % (Auto) % Neut # (Auto) (1.4-6.5) K/uL Lymph # (Auto) (1.2-3.4) K/uL Louisa # (Auto) (0.24-0.82) K/uL Eos # (Auto) (0-0.50) K/uL Baso # (Auto) (0-0.2) K/uL Immature Gran # (Auto) (0.00-0.02) K/uL Platelet Estimate (Normal) APTT 24.6 (21.0-31.0) Seconds PTT Ratio 0.9 Sodium (136-145) mmol/L Potassium (3.5-5.1) mmol/L Chloride (98-107) mmol/L Carbon Dioxide (21-32) mmol/L Anion Gap (3-11) BUN (6-23) mg/dl Creatinine (0.6-1.2) mg/dl Est Cr Clr Drug Dosing ml/min Est GFR ( Amer) ml/min Est GFR (Non-Af Amer) ml/min BUN/Creatinine Ratio (10-20) Glucose (70-99(Fasting)) mg/dl Calcium (8.5-10.1) mg/dl Phosphorus (2.5-4.9) mg/dl Magnesium (1.7-2.4) mg/dl Total Bilirubin (0.2-1.0) mg/dl AST (13-39) U/L ALT (7-52) U/L Alkaline Phosphatase (34-104) U/L Troponin I High Sens (0-14) pg/ml B-Natriuretic Peptide (0-100) pg/ml Total Protein (6.0-8.3) gm/dl Albumin (3.4-5.0) gm/dl Globulin (2.5-4.0) gm/dl Albumin/Globulin Ratio (0.9-2) Lipase (11-82) U/L Adenovirus (PCR) Not Detected (NotDetected) B. pertussis DNA (PCR) Not Detected (NotDetected) B.parapertussis DNA PCR Not Detected (NotDetected) C. pneumoniae DNA (PCR) Not Detected (NotDetected) Coronavirus OC43 (PCR) Not Detected (NotDetected) Coronavirus HKU1 (PCR) Not Detected (NotDetected) Coronavirus 229E (PCR) Not Detected (NotDetected) SARS-CoV-2 (PCR) Not Detected (NotDetected) Coronavirus NL63 (PCR) Not Detected (NotDetected) Human Metapneumovir PCR Not Detected (NotDetected) Influenza Type A (PCR) Not Detected (NotDetected) Influenza Type B (PCR) Not Detected (NotDetected) M. pneumoniae (PCR) Not Detected (NotDetected) Parainfluenza 1 (PCR) Not Detected (NotDetected) Parainfluenza 2 (PCR) Not Detected (NotDetected) Parainfluenza 3 (PCR) Not Detected (NotDetected) Parainfluenza 4 (PCR) Not Detected (NotDetected) RSV (PCR) Not Detected (NotDetected) Entero/Rhino (PCR) Not Detected (NotDetected) Administered Medications Sodium Chloride (Nss 1000ml) 1,000 mls @ 50 mls/hr IV .Q20H ONE Stop: 03/09/22 16:18 Last Admin: 03/08/22 21:00 Dose: 50 mls/hr Documented By: LESLIE Heparin Sodium/Dextrose (Heparin Sodium/Dextrose) 25,000 units in 500 mls @ 23 mls/hr IV .[id number] [facility]; Protocol Stop: 04/07/22 22:44 Last Admin: 03/08/22 23:09 Dose: 1,150 units/hr, 23 mls/hr Documented By: KAROLINA Co-signed By: ADEN Discontinued Medications Famotidine (Pepcid 20mg Iv Push) 20 mg in 5 mls @ 2.5 mls/min IV NOW STA Stop: 03/08/22 17:09 Last Admin: 03/08/22 17:51 Dose: 2.5 mls/min Documented By: LESLIE Ioversol (Optiray 320 500ml) 117 ml IV ONCE ONE Stop: 03/08/22 18:20 Last Admin: 03/08/22 18:20 Dose: 117 ml Documented By: CHAVO Potassium Phosphate (Pot Phosphate Monobasic W/ Sod Tab) 1 tab PO NOW STA Stop: 03/08/22 20:21 Last Admin: 03/08/22 21:01 Dose: 1 tab Documented By: [facility] [place] Imaging Data Radiologist's Impression: Chest X-Ray 03/08/22 16:47 SINGLE VIEW CHEST CLINICAL HISTORY: Atypical chest pain. Cough. FINDINGS: An AP, portable, upright chest radiograph is compared to study dated 02/24/2022. The heart is enlarged. The pulmonary vasculature is noncongested. Chronic interstitial thickening is similar to previous. There is bibasilar scarring/atelectasis. The lungs and pleural spaces are otherwise clear. No pneumothorax is seen. The skeletal structures are osteopenic. The bony thorax is grossly intact. Degenerative change and scoliosis is noted in the thoracic spine. IMPRESSION: Cardiomegaly with no active disease in the chest. ACT 112: Negative or not required by law. Electronically signed by: Nehemias Rodriguez M.D. 03/08/2022 5:06 PM Chest CTA 03/08/22 17:08 CT ANGIOGRAM OF THE CHEST CLINICAL HISTORY: Atypical chest pain. Dyspnea. COMPARISON STUDY: Chest x-ray dated 03/08/2022. Abdominal CT dated 02/24/2022. TECHNIQUE: Following the IV administration of 117 cc of Optiray 320, CT angiogram of the chest was performed from the upper abdomen to the thoracic inlet utilizing the pulmonary embolus protocol. Images are reviewed in the axial, sagittal, and coronal planes. 3-D MIPS images are created and assessed. IV contrast was administered without complication. A dose lowering technique was utilized adhering to the principles of ALARA. CT DOSE: 254.05 mGy.cm FINDINGS: Thyroid: There is a 1. Centimeter low-attenuation nodule in the left lobe. Thoracic aorta: The thoracic aorta is normal in caliber and demonstrates standard 3-vessel arch anatomy. No dissection is seen. Pulmonary vasculature: The main pulmonary arteries are mildly dilated suggesting pulmonary artery hypertension. There are pulmonary emboli within segmental and subsegmental branches in the right upper, left upper, lingular, and left lower lobe pulmonary arteries. Heart: The heart is enlarged and without pericardial effusion. There are scattered coronary artery calcifications. Lungs and pleural spaces: Evaluation of the lung parenchyma is degraded by motion artifact. There is no airspace consolidation typical for pneumonia or pleural effusion. Foci of air trapping are seen throughout both lungs. There is bibasilar scarring/atelectasis. The trachea and central airways are clear. A 15 mm peribronchial nodule in the right middle lobe is again seen on image #127. There is a 5 mm right lower lobe pulmonary nodule seen on image #89. Mediastinum: There is no mediastinal lymphadenopathy. Shanti: Clear. Axillae: There is no axillary lymphadenopathy. Upper abdomen: The liver and spleen are enlarged. A small hiatal hernia is noted. Skeletal structures: The skeletal structures are osteopenic. Degenerative change and kyphoscoliosis is noted in the thoracic spine. Arthritic change is seen in the shoulders. No lytic or blastic bony lesions are seen. IMPRESSION: 1. There are numerous bilateral segmental and subsegmental pulmonary emboli as detailed above. 2. Cardiomegaly. 3. There is no airspace consolidation or pleural effusion. 4. There are 2 pulmonary nodules at the right lung base measuring up to 15 mm. These can be followed as per the Fleischner criteria. See below. 5. Hepatosplenomegaly. 6. There is a 1.8 cm low-attenuation nodule in the left lobe of the thyroid gland. Nonemergent thyroid ultrasound is recommended in follow-up. 7. Additional findings as above. Please refer to below summary of Fleischner criteria recommendations for follow- up of incidental CT nodules (Mario Oates, Guidelines for management of small pulmonary nodules detected on CT scans: A statement from the Fleischner Society, Radiology 237: [phone].) SOLID NODULES Solitary nodule size: <6 mm * low risk patients: no follow-up needed * high risk patients: optional CT at 12 months Solitary nodule size: 6-8 mm * low risk patients: follow-up at 6-12 months, then consider further follow-up at 18-24 months * high risk patients: initial follow-up CT at 6-12 months and then at 18-24 months if no change Solitary nodule size: >8 mm * either low or high risk patients - consider follow-up CT at 3 months, and/or CT-PET, and/or biopsy Multiple nodules size: <6 mm * low risk patients: no routine follow-up * high risk patients: optional CT at 12 months Multiple nodules size: 6-8 mm * low risk patients: follow-up at 3-6 months, then consider further follow-up at 18-24 months * high risk patients: follow-up at 3-6 months, then at 18-24 months if no change Multiple nodules size: >8 mm * low risk patients: follow-up at 3-6 months, then consider further follow-up at 18-24 months * high risk patients: follow-up at 3-6 months, then at 18-24 months if no change Note: newly detected indeterminate nodule in persons 35 years of age or older. * low risk patients: minimal or absent history of smoking and/or other known risk factors * high risk patients: history of smoking or of other known risk factors (e.g. first degree relative with lung cancer, or exposure to asbestos, radon, uranium) * if a nodule up to 8 mm is partly solid or is ground glass further follow-up i s required after 24 months to exclude possible slow growing adenocarcinoma (LULI) SUBSOLID NODULES Solitary pure ground-glass nodule * nodule size <6 mm - no CT follow-up required * nodule size >=6 mm - follow-up CT at 6-12 months, then every 2 years until 5 years Solitary part-solid nodule * nodule size <6 mm - no CT follow-up required * nodule size >=6 mm - follow-up CT at 3-6 months. If unchanged, and solid component remains <6 mm, then annual follow-up for 5 years Multiple subsolid nodules * nodule size <6 mm - follow-up CT at 3-6 months, consider further follow-up at 2 and 4 years if stable * nodule size >=6 mm - follow-up CT at 3-6 months, subsequent management based on the most suspicious nodule(s) ACT 112: Negative or not required by law. Electronically signed by: Nehemias Rodriguez M.D. 03/08/2022 6:32 PM Discharge Plan Visit Data Chief Complaint: Chest Pain Stated Complaint: LOSS OF APPETITE, FATIGUE, CHEST DISCOMFORT ED Provider: Jayy Gan Discharge Problem: Bilateral pulmonary embolism, Chest pain, Shortness of breath Patient Disposition: Admitted As Inpatient Discharge Instructions Interventions: ED Discharge Assessment Last Done: 03/08/22 23:22
[2022-03-08 17:02] LABS: Hematocrit (blood only) 37.3 % (34.1-44.9); Hemoglobin 12.2 g/dl (12.0-16.0); White Blood Count 7.47 K/ul (4.8-10.8)
[2022-03-08] MEDS ORDERED: FAMOTIDINE 20MG IV PUSH 20 MG/5 ML SYR IV STA (17:08)
--- NOTE | 2022-03-08 17:08 | XRay Report ---
SINGLE VIEW CHEST CLINICAL HISTORY: Atypical chest pain. Cough. FINDINGS: An AP, portable, upright chest radiograph is compared to study dated 02/24/2022. The heart i s enlarged. The pulmonary vasculature is noncongested. Chronic interstitial thickening is similar to previous. There is bibasilar scarring/atelectasis. The lungs and pleural spaces are otherwise clear. No pneumothorax is seen. The skeletal structures are osteopenic. The bony thorax is grossly intact. D egenerative change and scoliosis is noted in the thoracic spine. IMPRESSION: Cardiomegaly with no active disease in the chest. ACT 112: Negative or not required by law. Electronically signed by: Nehemias Rodriguez M.D. 03/08/2022 5:06 PM
[2022-03-08 17:20] LABS: Mean Corpuscular Hemoglobin 30.3 pg (25.0-34.0); Mean Corpuscular Hgb Conc 32.7 g/dL (32.0-36.0); Mean Corpuscular Volume 92.8 fL (80.0-100.0); Mean Platelet Volume 11.5 fL (9.4-12.3); Platelet Count 114 K/uL (130-400); RDW Coefficient of Variation 13.9 % (11.5-14.5); RDW Standard Deviation 47.6 fL (36.4-46.3); Red Blood Count 4.02 M/uL (3.93-5.22)
[2022-03-08 17:23] LABS: Troponin I High Sensitivity 7.1 pg/ml (0-14)
[2022-03-08 17:31] LABS: Albumin Globulin Ratio 0.8 (0.9-2); Albumin Level 3.6 gm/dl (3.4-5.0); Bilirubin,Total 0.9 mg/dl (0.2-1.0); Calcium 9.4 mg/dl (8.5-10.1); Creatinine Clr Calc Pharmacy 36.3 ml/min; Est GFR (African American) 53.8 ml/min; Est GFR (Non-African American) 46.4 ml/min; Globulin 4.7 gm/dl (2.5-4.0); Magnesium 1.9 mg/dl (1.7-2.4); Phosphorus 2.4 mg/dl (2.5-4.9); Potassium 3.9 mmol/L (3.5-5.1); Total Protein 8.3 gm/dl (6.0-8.3)
[2022-03-08 17:40] LABS: Basophils # (auto) 0.04 K/uL (0-0.2); Basophils % (auto) 0.5 %; Eosinophils # (auto) 0.02 K/uL (0-0.50); Eosinophils % (auto) 0.3 %; Immature Granulocytes # (auto) 0.03 K/uL (0.00-0.02); Immature Granulocytes % (auto) 0.4 %; Lymphocytes # (auto) 2.15 K/uL (1.2-3.4); Lymphocytes % (auto) 28.8 %; Monocytes # (auto) 0.68 K/uL (0.24-0.82); Monocytes % (auto) 9.1 %; Neutrophils # (auto) 4.55 K/uL (1.4-6.5); Neutrophils % (auto) 60.9 %; Platelet Estimate Normal (Normal)
[2022-03-08] MEDS ORDERED: OPTIRAY 320 500ml IV ONE (18:19)
[2022-03-08 18:25] LABS: Adenovirus PCR Not Detected (NotDetected); Bordetella parapertussis PCR Not Detected (NotDetected); Bordetella pertussis PCR Not Detected (NotDetected); Chlamydia pneumoniae PCR Not Detected (NotDetected); Coronavirus 229E PCR Not Detected (NotDetected); Coronavirus CoV-2 (COVID19)PCR Not Detected (NotDetected); Coronavirus HKU1 PCR Not Detected (NotDetected); Coronavirus NL63 PCR Not Detected (NotDetected); Coronavirus OC43PCR Not Detected (NotDetected); Human Metapneumovirus PCR Not Detected (NotDetected); Influenza A PCR Not Detected (NotDetected); Influenza B PCR Not Detected (NotDetected); Mycoplasma pneumoniae PCR Not Detected (NotDetected); Parainfluenza Virus 1 PCR Not Detected (NotDetected); Parainfluenza Virus 2 PCR Not Detected (NotDetected); Parainfluenza Virus 3 PCR Not Detected (NotDetected); Parainfluenza Virus 4 PCR Not Detected (NotDetected); Respiratory Syncytial VirusPCR Not Detected (NotDetected); Rhinovirus/Enterovirus PCR Not Detected (NotDetected)
--- NOTE | 2022-03-08 18:34 | CT Scan Report ---
CT ANGIOGRAM OF THE CHEST CLINICAL HISTORY: Atypical chest pain. Dyspnea. COMPARISON STUDY: Chest x-ray dated 03/08/2022. Abdominal CT dated 02/24/2022. TECHNIQUE: Following the IV administration of 117 cc of Optiray 320, CT angiogram of the chest was pe rformed from the upper abdomen to the thoracic inlet utilizing the pulmonary embolus protocol. Images are reviewed in the axial, sagittal, and coronal planes. 3-D MIPS images are created and assessed. I V contrast was administered without complication. A dose lowering technique was utilized adhering to the principles of ALARA. CT DOSE: 254.05 mGy.cm FINDINGS: Thyroid: There is a 1. Centimeter low-attenuation nodule in the left lobe. Thoracic aorta: The thoracic aorta is normal in caliber and demonstrates standard 3-vessel arch anato my. No dissection is seen. Pulmonary vasculature: The main pulmonary arteries are mildly dilated suggesting pulmonary artery hyp ertension. There are pulmonary emboli within segmental and subsegmental branches in the right upper, left upper, lingular, and left lower lobe pulmonary arteries. Heart: The heart is enlarged and without pericardial effusion. There are scattered coronary artery ca lcifications. Lungs and pleural spaces: Evaluation of the lung parenchyma is degraded by motion artifact. There is no airspace consolidation typical for pneumonia or pleural effusion. Foci of air trapping are seen th roughout both lungs. There is bibasilar scarring/atelectasis. The trachea and central airways are amadou ar. A 15 mm peribronchial nodule in the right middle lobe is again seen on image #127. There is a 5 m m right lower lobe pulmonary nodule seen on image #89. Mediastinum: There is no mediastinal lymphadenopathy. Shanti: Clear. Axillae: There is no axillary lymphadenopathy. Upper abdomen: The liver and spleen are enlarged. A small hiatal hernia is noted. Skeletal structures: The skeletal structures are osteopenic. Degenerative change and kyphoscoliosis i s noted in the thoracic spine. Arthritic change is seen in the shoulders. No lytic or blastic bony le sions are seen. IMPRESSION: 1. There are numerous bilateral segmental and subsegmental pulmonary emboli as detailed above. 2. Cardiomegaly. 3. There is no airspace consolidation or pleural effusion. 4. There are 2 pulmonary nodules at the right lung base measuring up to 15 mm. These can be followed as per the Fleischner criteria. See below. 5. Hepatosplenomegaly. 6. There is a 1.8 cm low-attenuation nodule in the left lobe of the thyroid gland. Nonemergent thyroi d ultrasound is recommended in follow-up. 7. Additional findings as above. Please refer to below summary of Fleischner criteria recommendations for follow-up of incidental CT n odules (Mario Oates, Guidelines for management of small pulmonary nodules detected on CT scans: A sta tement from the Fleischner Society, Radiology 237: [phone].) SOLID NODULES Solitary nodule size: <6 mm * low risk patients: no follow-up needed * high risk patients: optional CT at 12 months Solitary nodule size: 6-8 mm * low risk patients: follow-up at 6-12 months, then consider further follow-up at 18-24 months * high risk patients: initial follow-up CT at 6-12 months and then at 18-24 months if no change Solitary nodule size: >8 mm * either low or high risk patients - consider follow-up CT at 3 months, and/or CT-PET, and/or biopsy Multiple nodules size: <6 mm * low risk patients: no routine follow-up * high risk patients: optional CT at 12 months Multiple nodules size: 6-8 mm * low risk patients: follow-up at 3-6 months, then consider further follow-up at 18-24 months * high risk patients: follow-up at 3-6 months, then at 18-24 months if no change Multiple nodules size: >8 mm * low risk patients: follow-up at 3-6 months, then consider further follow-up at 18-24 months * high risk patients: follow-up at 3-6 months, then at 18-24 months if no change Note: newly detected indeterminate nodule in persons 35 years of age or older. * low risk patients: minimal or absent history of smoking and/or other known risk factors * high risk patients: history of smoking or of other known risk factors (e.g. first degree relative with lung cancer, or exposure to asbestos, radon, uranium) * if a nodule up to 8 mm is partly solid or is ground glass further follow-up is required after 24 m onths to exclude possible slow growing adenocarcinoma (LULI) SUBSOLID NODULES Solitary pure ground-glass nodule * nodule size <6 mm - no CT follow-up required * nodule size >=6 mm - follow-up CT at 6-12 months, then every 2 years until 5 years Solitary part-solid nodule * nodule size <6 mm - no CT follow-up required * nodule size >=6 mm - follow-up CT at 3-6 months. If unchanged, and solid component remains <6 mm, then annual follow-up for 5 years Multiple subsolid nodules * nodule size <6 mm - follow-up CT at 3-6 months, consider further follow-up at 2 and 4 years if sta ble * nodule size >=6 mm - follow-up CT at 3-6 months, subsequent management based on the most suspiciou s nodule(s) ACT 112: Negative or not required by law. Electronically signed by: Nehemias Rodriguez M.D. 03/08/2022 6:32 PM
[2022-03-08] MEDS ORDERED: SODIUM CHLORIDE 0.9% 1000ML 1,000 ML IV ONE (20:19)
[2022-03-08] MEDS ORDERED: POT PHOSPHATE MONOBASIC W/ SOD TAB PO STA (20:20)
--- NOTE | 2022-03-08 20:32 | History & Physical Report ---
Date of Service March 08, 2022 Assessment & Plan (1) Pulmonary embolism: (2) Epigastric discomfort: (3) Elevated blood pressure reading: Plan: Assessment and Plan per Dr Holder. See addendum. History of Present Illness Chief Complaint: SOB Primary Care Provider: Nanci Walls DO (Patient has not met her.) Patient is 81 -year-old female with PMH Mnire's disease presenting to ER with complaint of "not feeling well". Patient is poor historian. History obtained from patient and patient's son. Recent hospitalization 02/24/22 - 02/26/22 for symptoms of not feeling well, tactile fever, chills myalgias and was noted to be hypoxic in the ER with ambulation. CXR at the time showeed cardiomegaly, int erstitial coarsening, CT abdomen pelvis showed cardiomegaly, pulmonary edema, trace pleural effusions, pulmonary nodule. Echo with EF: 60-65%, moderately dilated right ventricle, moderately dilated right atrium, mild AR, mild MR, moderate tricuspid regurgitation, moderate pulmonary hypertension Patient was treated with dose of IV Lasix with reported improvement. Patient was on Lovenox for DVT prophylaxis during hospitalization. Discharged on losartan for noted elevated blood pressure in hospital. Further history obtained from patients son. He reports initial symptom onset on 02/16/22 with tactile fever, chills, myalgias, rhinorrhea. Son noticed patient seemed to be breathing heavier than usual. Patient denies any cough or noted SOB herself. Did home COVID-19 tests on 02/19 and 02/21 that were negative. Unvaccinated for COVID-19. Symptoms continued so was seen at [facility] on 02/22/22 and had reported negative COVID test and unknown results of influenza test and was started on Amoxicillin. Patient reported some upset stomach after starting antibiotic. Patient and patients son reports patient had improvement of symptoms during hospitalization and she reports was feeling well initially after hospital discharge. She denied any noted SOB, CP, cough. She was able to do ADLs and carry heavy planters in from outside after returning home. States past 4-5 days onset of "not feeling well" again. Difficult for patient to describe. States feels tired and not herself. C/O mild rhinorrhea. She was taking OTC Coricidin with limited relief. Does report night sweats past 2 nights, otherwise denies known fever or chills. Denies new cough, CP or SOB. Denies leg pain, erythema or edema. Reports at least 1.5 months has been having increased burping and intermittent episodes of regurgitating foods. Denies vomiting. Past couple of days with epigastric discomfort that radiates to RUQ and LUQ. She is unsure if eating aggravates symptoms. Does report decreased appetite. Tried Pepto- bismol with some relief of burping. Denies other abdominal pain. Denies diarrhea, constipation, vomiting, MACEDO, dizziness, syncope, vision changes, neck pain, orthopnea, palpitations, cough, sore throat, choking, otalgia, , paresthesias, extremity weakness, extremity edema, rashes, urinary symptoms. Denies history of EGD, colonoscopy. Reports unknown last mammogram. Denies h/o DVT/PE. Denies FH DVT/PE or known clotting disorder. No recent travel or surgery. Denies weight loss. Patient being admitted today for numerous bilateral segmental and subsegmental pulmonary emboli found on CTA chest. Allergies Allergy/AdvReac Type Severity Reaction Status Date / Time No Known Allergies Allergy Verified 03/08/22 18:24 Home Medications Medication Instructions Recorded Confirmed Type multivitamin 1 tab PO DAILY 02/24/22 03/08/22 History losartan 25 mg tablet 25 mg PO QAM #30 tabs 02/26/22 03/08/22 Rx cholecalciferol (vitamin D3) 125 125 mcg PO DAILY 03/08/22 03/08/22 History mcg (5,000 unit) tablet (Vitamin D3) magnesium oxide 500 mg tablet 500 mg PO DAILY 03/08/22 03/08/22 History niacin 500 mg tablet 500 mg PO DAILY 03/08/22 03/08/22 History Past Med/Surg History Medical History Elevated blood pressure reading Meniere disease Pulmonary edema Surgical History No pertinent past surgical history Family History Brother Stroke Sister Breast cancer Mother Colorectal cancer Social History Smoking Status: Never smoker Hx Alcohol Use: No Hx Substance Use: No Preferred Language: Sinhala Communication Ability: Effective Senior Business Process Analyst Required: No Beliefs That Will Affect Care: None marital status: / Current Living Situation: Alone Other Information That Helps Us Care for You: No Feels Safe at Home: Yes Assistive Devices: None Review of Systems Review of Systems: All systems reviewed & are unremarkable except as noted in HPI & below Physical Exam Physical Exam: General: no distress, WDWN Head: normocephalic, atraumatic Eyes: conjunctiva non-injected, anicteric ENT: normal inspection external ears, nose, mucous membranes moist Neck: supple, trachea midline Lungs: clear, no respiratory distress, no wheezing/rhonchi/rales CV: RRR, no pretibial edema Abd: normal BS, soft, non-tender to palpation Ext: no cyanosis, no erythema, no calf tenderness Neuro: A&O x 3, no focal deficits noted, normal affect Skin: warm, dry Results & Data Results & Data ([facility]) Vital Signs (Past 12 Hours) Vital Signs Pulse Pulse Resp BP BP Pulse Ox O2 Del Method 03/08/22 19:00 80 18 121/63 99 Nasal Cannula 03/08/22 17:34 19 121/63 99 Nasal Cannula 03/08/22 16:47 86 20 88 L Room Air 03/08/22 15:55 88 20 133/73 91 Room Air 03/08/22 15:55 91 Room Air 03/08/22 15:41 90 20 122/79 96 Room Air O2 Flow Rate 03/08/22 19:00 2 03/08/22 17:34 2 03/08/22 16:47 2 03/08/22 15:55 03/08/22 15:55 03/08/22 15:41 Laboratory Results Short CBC 03/08/22 Range/Units 15:51 WBC 7.47 (4.8-10.8) K/ul Hgb 12.2 (12.0-16.0) g/dl Hct 37.3 (34.1-44.9) % Plt Count 114 L (130-400) K/uL BMP 03/08/22 15:51 Sodium 133 L Potassium 3.9 Chloride 97 L Carbon Dioxide 26 BUN 22 Creatinine 1.10 Glucose 122 H Calcium 9.4 Liver Function 03/08/22 Range/Units 15:51 Total Bilirubin 0.9 (0.2-1.0) mg/dl AST 43 H (13-39) U/L ALT 34 (7-52) U/L Alkaline Phosphatase 100 (34-104) U/L Albumin 3.6 (3.4-5.0) gm/dl Diagnostic Findings Chest X-Ray 03/08/22 16:47 SINGLE VIEW CHEST CLINICAL HISTORY: Atypical chest pain. Cough. FINDINGS: An AP, portable, upright chest radiograph is compared to study dated 02/24/2022. The heart is enlarged. The pulmonary vasculature is noncongested. Chronic interstitial thickening is similar to previous. There is bibasilar scarring/atelectasis. The lungs and pleural spaces are otherwise clear. No pneumothorax is seen. The skeletal structures are osteopenic. The bony thorax is grossly intact. Degenerative change and scoliosis is noted in the thoracic spine. IMPRESSION: Cardiomegaly with no active disease in the chest. ACT 112: Negative or not required by law. Electronically signed by: Nehemias Rodriguez M.D. 03/08/2022 5:06 PM Chest CTA 03/08/22 17:08 CT ANGIOGRAM OF THE CHEST CLINICAL HISTORY: Atypical chest pain. Dyspnea. COMPARISON STUDY: Chest x-ray dated 03/08/2022. Abdominal CT dated 02/24/2022. TECHNIQUE: Following the IV administration of 117 cc of Optiray 320, CT angiogram of the chest was performed from the upper abdomen to the thoracic inlet utilizing the pulmonary embolus protocol. Images are reviewed in the axial, sagittal, and coronal planes. 3-D MIPS images are created and assessed. IV contrast was administered without complication. A dose lowering technique was utilized adhering to the principles of ALARA. CT DOSE: 254.05 mGy.cm FINDINGS: Thyroid: There is a 1. Centimeter low-attenuation nodule in the left lobe. Thoracic aorta: The thoracic aorta is normal in caliber and demonstrates standard 3-vessel arch anatomy. No dissection is seen. Pulmonary vasculature: The main pulmonary arteries are mildly dilated suggesting pulmonary artery hypertension. There are pulmonary emboli within segmental and subsegmental branches in the right upper, left upper, lingular, and left lower lobe pulmonary arteries. Heart: The heart is enlarged and without pericardial effusion. There are scattered coronary artery calcifications. Lungs and pleural spaces: Evaluation of the lung parenchyma is degraded by motion artifact. There is no airspace consolidation typical for pneumonia or pleural effusion. Foci of air trapping are seen throughout both lungs. There is bibasilar scarring/atelectasis. The trachea and central airways are clear. A 15 mm peribronchial nodule in the right middle lobe is again seen on image #127. There is a 5 mm right lower lobe pulmonary nodule seen on image #89. Mediastinum: There is no mediastinal lymphadenopathy. Shanti: Clear. Axillae: There is no axillary lymphadenopathy. Upper abdomen: The liver and spleen are enlarged. A small hiatal hernia is noted. Skeletal structures: The skeletal structures are osteopenic. Degenerative change and kyphoscoliosis is noted in the thoracic spine. Arthritic change is seen in the shoulders. No lytic or blastic bony lesions are seen. IMPRESSION: 1. There are numerous bilateral segmental and subsegmental pulmonary emboli as detailed above. 2. Cardiomegaly. 3. There is no airspace consolidation or pleural effusion. 4. There are 2 pulmonary nodules at the right lung base measuring up to 15 mm. These can be followed as per the Fleischner criteria. See below. 5. Hepatosplenomegaly. 6. There is a 1.8 cm low-attenuation nodule in the left lobe of the thyroid gland. Nonemergent thyroid ultrasound is recommended in follow-up. 7. Additional findings as above. Please refer to below summary of Fleischner criteria recommendations for follow- up of incidental CT nodules (Mario Oates, Guidelines for management of small pulmonary nodules detected on CT scans: A statement from the Fleischner Society, Radiology 237: [phone].) SOLID NODULES Solitary nodule size: <6 mm * low risk patients: no follow-up needed * high risk patients: optional CT at 12 months Solitary nodule size: 6-8 mm * low risk patients: follow-up at 6-12 months, then consider further follow-up at 18-24 months * high risk patients: initial follow-up CT at 6-12 months and then at 18-24 months if no change Solitary nodule size: >8 mm * either low or high risk patients - consider follow-up CT at 3 months, and/or CT-PET, and/or biopsy Multiple nodules size: <6 mm * low risk patients: no routine follow-up * high risk patients: optional CT at 12 months Multiple nodules size: 6-8 mm * low risk patients: follow-up at 3-6 months, then consider further follow-up at 18-24 months * high risk patients: follow-up at 3-6 months, then at 18-24 months if no change Multiple nodules size: >8 mm * low risk patients: follow-up at 3-6 months, then consider further follow-up at 18-24 months * high risk patients: follow-up at 3-6 months, then at 18-24 months if no change Note: newly detected indeterminate nodule in persons 35 years of age or older. * low risk patients: minimal or absent history of smoking and/or other known risk factors * high risk patients: history of smoking or of other known risk factors (e.g. first degree relative with lung cancer, or exposure to asbestos, radon, uranium) * if a nodule up to 8 mm is partly solid or is ground glass further follow-up is required after 24 months to exclude possible slow growing adenocarcinoma (LULI) SUBSOLID NODULES Solitary pure ground-glass nodule * nodule size <6 mm - no CT follow-up required * nodule size >=6 mm - follow-up CT at 6-12 months, then every 2 years until 5 years Solitary part-solid nodule * nodule size <6 mm - no CT follow-up required * nodule size >=6 mm - follow-up CT at 3-6 months. If unchanged, and solid component remains <6 mm, then annual follow-up for 5 years Multiple subsolid nodules * nodule size <6 mm - follow-up CT at 3-6 months, consider further follow-up at 2 and 4 years if stable * nodule size >=6 mm - follow-up CT at 3-6 months, subsequent management based on the most suspicious nodule(s) ACT 112: Negative or not required by law. Electronically signed by: Nehemias Rodriguez M.D. 03/08/2022 6:32 PM Supervising Physician Co-Signing Physician Notes IM ATTENDING : Patient seen and examined. History obtained from patient, family, and records. Preceding documentation by Ms. Alissa Munoz PA-C reviewed. FINAL ASSESSMENT AND PLAN as follows : Acute pulmonary embolism Initial occurrence No obvious provoking factors for now other than recent confinement for CHF ? Rule out occult malignancy (dysphagia to solids/GERD/burping symptoms of less than a year duration with note of distal esophageal thickening on CT abdomen pelvis from last admission; pulmonary and thyroid nodules noted on today's CT imaging as well) Rule out LE clot as source Chronic diastolic failure (EF 60 to 65%, TTE 2021), patient on the dry side with increased creatinine from baseline Valvular heart disease (mild AR/MR, moderate TR), pulmonary hypertension on recent TTE Hypertension, stable Hyperlipidemia not on statin Rx Chronic anemia, hemoglobin better than baseline of 11 likely secondary to mild hemoconcentration Medical telemetry IV heparin Famotidine for esophagitis, uncontrolled GERD; PPI if unresponsive GI consult Re: esophagitis on CT, solid food dysphagia of months duration Outpatient thyroid ultrasound, ENT consultation for thyroid nodule work-up LE venous Dopplers rule out DVT (Hold oral anticoagulation until patient evaluated by GI.) Gentle IV hydration for now in light of pulmonary hypertension/history CHF given hemoconcentration DVT prophylaxis. IV heparin Full code Patient son requesting updates from providers. Mr. Nick Ramires, contact #[phone]. Text document was generated using [employer] voice recognition software. It may contain grammatical or spelling errors. Kindly contact undersigned for clarification of any documentation item in question.
[2022-03-08] MEDS ORDERED: Heparin IV Adult Wt-Based Standard *NO* Bolus Protocol IV STA (22:32)
[2022-03-08 23:05] LABS: Partial Thromboplastin Ratio 0.9; Partial Thromboplastin Time 24.6 Seconds (21.0-31.0)
[2022-03-08] MEDS: HEPARIN SODIUM/DEXTROSE 25,000 UNITS/500 ML BAG IV SCH (23:09)
[2022-03-09] MEDS ORDERED: ACETAMINOPHEN 325 MG TAB PO PRN (00:14)
[2022-03-09] MEDS ORDERED: traMADol HCL 50 MG TABLET PO PRN (00:14)
[2022-03-09] MEDS ORDERED: PROMETHAZINE HCL 6.25 MG in SODIUM CHLORIDE 0.9% 50 ML IV PRN (00:14)
[2022-03-09 06:16] LABS: Hematocrit (blood only) 31.6 % (34.1-44.9); Hemoglobin 10.7 g/dl (12.0-16.0); Mean Corpuscular Hemoglobin 30.8 pg (25.0-34.0); Mean Corpuscular Hgb Conc 33.9 g/dL (32.0-36.0); Mean Corpuscular Volume 91.1 fL (80.0-100.0); Mean Platelet Volume 10.8 fL (9.4-12.3); Platelet Count 107 K/uL (130-400); RDW Coefficient of Variation 14.1 % (11.5-14.5); RDW Standard Deviation 47.2 fL (36.4-46.3); Red Blood Count 3.47 M/uL (3.93-5.22); White Blood Count 7.23 K/ul (4.8-10.8)
[2022-03-09 06:26] LABS: Partial Thromboplastin Ratio 2.7
[2022-03-09 06:35] LABS: BUN Creatinine Ratio 26.7 (10-20); Calcium 8.7 mg/dl (8.5-10.1); Creatinine Clr Calc Pharmacy 53.2 ml/min; Est GFR (African American) 85.4 ml/min; Est GFR (Non-African American) 73.7 ml/min; Potassium 3.8 mmol/L (3.5-5.1)
[2022-03-09 06:42] LABS: Partial Thromboplastin Time 73.7 Seconds (21.0-31.0)
[2022-03-09 06:54] LABS: ALC (manual) 3.11 K/uL (1.2-3.4); ANC (manual) 2.24 K/uL (1.4-6.5); Basophils # (manual) 0.07 K/uL (0-0.2); Basophils % (manual) 1 %; Lymphocytes # (manual) 3.11 K/uL (1.2-3.4); Lymphocytes % (manual) 43 %; Monocytes # (manual) 1.81 K/uL (0.24-0.82); Monocytes % (manual) 25 %; Neutrophils # (manual) 2.24 K/uL (1.4-6.5); Neutrophils % (manual) 31 %
[2022-03-09 08:09] LABS: Basophils # (auto) 0.06 K/uL (0-0.2); Basophils % (auto) 0.8 %; Immature Granulocytes # (auto) 0.03 K/uL (0.00-0.02); Immature Granulocytes % (auto) 0.4 %; Lymphocytes # (auto) 4.46 K/uL (1.2-3.4); Lymphocytes % (auto) 61.7 %; Monocytes # (auto) 0.73 K/uL (0.24-0.82); Monocytes % (auto) 10.1 %; Neutrophils # (auto) 1.95 K/uL (1.4-6.5)
[2022-03-09] MEDS: MULTIVITAMIN TAB PO SCH (08:23)
[2022-03-09] MEDS: FAMOTIDINE 10 MG TABLET PO SCH ×2 (08:23→20:43)
[2022-03-09] MEDS: LOSARTAN POTASSIUM 25 MG TAB PO SCH (08:23)
--- NOTE | 2022-03-09 11:13 | Ultrasound Report ---
US venous doppler LE BI CLINICAL HISTORY: PE work up TECHNIQUE: Bilateral lower extremity real-time compression venous ultrasound with Color Doppler imagi ng. Utilizing real-time ultrasonic imaging multiple real time high-resolution ultrasonic images with compression and noncompression maneuvers of the deep venous system in addition to color doppler imagi ng were performed from the common femoral vein through the proximal calf veins. COMPARISON: None available at the time of this dictation. FINDINGS: Currently there is normal compressibility of the deep venous system from the common femoral vein thro ugh the proximal calf veins. No superficial venous thrombosis is identified. Impression: No evidence of deep venous thrombus. ACT 112: Negative or not required by law. Electronically signed by: Dameon Bass M.D. 03/09/2022 11:11 AM
--- NOTE | 2022-03-09 12:44 | Hospitalist Progress Note ---
Date of Service March 09, 2022 Assessment & Plan (1) Bilateral pulmonary embolism: Plan 81-year-old lady with PMH of Mnire's disease presented to the ED 03/08 with complaint of not feeling well, patient is a poor historian, patient was found to have bilateral segmental and subsegmental PE on CTA chest. She is being managed for the following:-Next Acute pulmonary embolism, initial occurrence Patient presents with feeling of not feeling well, admitting CT chest revealed bilateral PE. Admitting BLE Doppler negative for DVT. Patient started on heparin drip, interested in Eliquis, Eliquis sent to pharmacy for cost evaluation. Patient without any chest pain or chest heaviness or palpitation. Continue IV heparin drip, continue telemetry monitoring, switch to Eliquis when feasible and no procedures anticipated. Abnormal CTA chest: 03/08 CTA chest as follows 1. There are numerous bilateral segmental and subsegmental pulmonary emboli as detailed above. 2. Cardiomegaly. 3. There is no airspace consolidation or pleural effusion. 4. There are 2 pulmonary nodules at the right lung base measuring up to 15 mm. These can be followed as per the Fleischner criteria. See below. 5. Hepatosplenomegaly. 6. There is a 1.8 cm low-attenuation nodule in the left lobe of the thyroid gland. Nonemergent thyroid ultrasound is recommended in follow-up. 7. Additional findings as above. Patient to have follow-up CT chest in 3 months. Patient to have nonemergent thyroid ultrasound as an outpatient, patient to coordinate with PCP. Patient would likely benefit from oncology evaluation as an outpatient due to PE and concern of dysphagia to solids/GERD/burping symptoms of less than 1 year duration with note of distal esophageal thickening on CT abdomen pelvis from last admission on the background of pulmonary and thyroid gland nodules as above. Likely GERD: Reported at least 1.5 months has been having increased burping and intermittent episodes of regurgitating foods. 02/24/22 w/ mild nonspecific distal esophageal wall thickening. GI consulted. Protonix, famotidine. Continue to monitor. Other chronic medical conditions: HTN, HFpEF, HLD --->> continue with home meds as and when appropriate. DVT prophylaxis: Heparin drip Full code Patient's son Mr. Nick Ramires, contact #[phone]. Admission and Anticipated Discharge Date Admission Date: March 08, 2022 Subjective Patient seen and examined at bedside for follow-up of acute pulm embolism. Patient was sitting up in chair, on room air, NAD, denies any new acute events overnight, denies any chest pain or chest heaviness, denies any headache or dizziness, denies any fever/chills/palpitation/belly pain/acute changes in bowel or bladder habits/other review of symptoms. Patient reports eating okay and moving bowels okay. Physical Exam Physical Exam: GENERAL: Alert and oriented x3. NAD, on RA. HEENT: No pallor, no icterus. Pupils equal, round and reactive to light. Oral mucosa moist. NECK: No JVD, no neck masses. HEART: S1 and S2 heard. Regular rate and rhythm. No murmur, no gallop. RESPIRATORY SYSTEM: Normal AP diameter. No accessory muscle use. No wheezing, no crackles. ABDOMEN: Soft, bowel sounds present, nontender, no distention. CENTRAL NERVOUS SYSTEM: No facial droop. Speech is clear. Obeys simple commands. Moves extremities. EXTREMITIES: No edema, no erythema seen. Results & Data Results & Data ([facility]) Vital Signs (Past 12 Hours) Vital Signs Temp Pulse Pulse Resp BP Pulse Ox O2 Del Method 03/09/22 12:00 37.3 C 89 17 130/73 93 Room Air 03/09/22 10:23 Room Air 03/09/22 08:27 36.7 C 80 17 123/71 91 Room Air 03/09/22 08:08 75 03/09/22 07:27 76 03/09/22 04:21 36.7 C 74 18 114/65 91 Room Air 03/09/22 03:52 Room Air 03/09/22 02:04 86 16 93 Room Air
[2022-03-09] MEDS ORDERED: PIPERACILLIN/TAZOBACTAM 3.375 GM in DEXTROSE 5% 100 ML IV SCH (13:30)
[2022-03-09 13:39] LABS: Partial Thromboplastin Ratio 2.3
[2022-03-09 13:46] LABS: Partial Thromboplastin Time 62.9 Seconds (21.0-31.0)
[2022-03-09] MEDS: PANTOprazole 40 MG TAB PO SCH (14:58)
[2022-03-09 15:59] LABS: Hematocrit (blood only) 31.4 % (34.1-44.9); Hemoglobin 10.8 g/dl (12.0-16.0); Mean Corpuscular Hemoglobin 31.1 pg (25.0-34.0); Mean Corpuscular Hgb Conc 34.4 g/dL (32.0-36.0); Mean Corpuscular Volume 90.5 fL (80.0-100.0); Mean Platelet Volume 11.1 fL (9.4-12.3); Platelet Count 106 K/uL (130-400); RDW Standard Deviation 46.5 fL (36.4-46.3); Red Blood Count 3.47 M/uL (3.93-5.22); White Blood Count 6.86 K/ul (4.8-10.8)
[2022-03-09 16:00] LABS: Basophils # (auto) 0.03 K/uL (0-0.2); Basophils % (auto) 0.4 %; Eosinophils # (auto) 0.12 K/uL (0-0.50); Eosinophils % (auto) 1.7 %; Immature Granulocytes # (auto) 0.03 K/uL (0.00-0.02); Immature Granulocytes % (auto) 0.4 %; Lymphocytes # (auto) 2.46 K/uL (1.2-3.4); Lymphocytes % (auto) 35.9 %; Monocytes # (auto) 0.61 K/uL (0.24-0.82); Monocytes % (auto) 8.9 %; Neutrophils # (auto) 3.61 K/uL (1.4-6.5); Neutrophils % (auto) 52.7 %
[2022-03-09 17:02] LABS: Appearance Urine Cloudy (Clear); Bacteria Urine Automated Negative (Negative); Bilirubin Urine Negative (Negative); Blood Urine Negative (Negative); Color Urine Yellow; Epithelial Cell Urine Auto 20-30 /lpf (0-5); Glucose Urine UA Negative (Negative); Ketones Urine Negative (Negative); Leukocyte Esterase Urine 2+ (Negative); Nitrite Urine Negative (Negative); Protein Urine 1+ (Negative); Specific Gravity Urine 1.023 (1.000-1.030); Urobilinogen Urine Negative (Negative); pH Urine 5.5 (4.5-7.5)
[2022-03-09 17:21] LABS: RBC Urine Automated 0-4 /hpf (0-4)
[2022-03-09] MEDS: HEPARIN SODIUM/DEXTROSE 25,000 UNITS/500 ML BAG IV SCH (20:39)
[2022-03-10 06:58] LABS: Hematocrit (blood only) 31.4 % (34.1-44.9); Hemoglobin 10.4 g/dl (12.0-16.0); Mean Corpuscular Hemoglobin 30.3 pg (25.0-34.0); Mean Corpuscular Hgb Conc 33.1 g/dL (32.0-36.0); Mean Corpuscular Volume 91.5 fL (80.0-100.0); Mean Platelet Volume 10.8 fL (9.4-12.3); Platelet Count 114 K/uL (130-400); RDW Coefficient of Variation 14.1 % (11.5-14.5); RDW Standard Deviation 47.6 fL (36.4-46.3); Red Blood Count 3.43 M/uL (3.93-5.22)
[2022-03-10 07:01] LABS: BUN Creatinine Ratio 22.5 (10-20); Calcium 8.7 mg/dl (8.5-10.1); Creatinine Clr Calc Pharmacy 56.2 ml/min; Est GFR (African American) 91.3 ml/min; Est GFR (Non-African American) 78.8 ml/min; Partial Thromboplastin Ratio 3.6; Potassium 3.6 mmol/L (3.5-5.1)
[2022-03-10 07:10] LABS: Partial Thromboplastin Time 99.4 Seconds (21.0-31.0)
--- NOTE | 2022-03-10 07:23 | Electrocardiogram Report ---
Test Reason : Blood Pressure : / mmHG Vent. Rate : 092 BPM Atrial Rate : 092 BPM P-R Int : 134 ms QRS Dur : 078 ms QT Int : 332 ms P-R-T Axes : 064 -05 036 degrees QTc Int : 410 ms Sinus rhythm with Premature atrial complexes When compared with ECG of 25-FEB-2022 06:02, Premature atrial complexes are now Present Vent. rate has increased BY 31 BPM Confirmed by Toby Shields ([id number]) on 03/10/2022 7:23:34 AM Referred By: REFERRED SELF Confirmed By:Esteban Shields
[2022-03-10] MEDS: MULTIVITAMIN TAB PO SCH (08:32)
[2022-03-10] MEDS: LOSARTAN POTASSIUM 25 MG TAB PO SCH (08:32)
[2022-03-10] MEDS: FAMOTIDINE 10 MG TABLET PO SCH ×2 (08:32→20:08)
[2022-03-10] MEDS: PANTOprazole 40 MG TAB PO SCH (08:32)
[2022-03-10] MEDS: cefTRIAXone SODIUM 2,000 MG in DEXTROSE 5% 50 ML IV SCH (08:32)
[2022-03-10] MEDS: HEPARIN SODIUM/DEXTROSE 25,000 UNITS/500 ML BAG IV SCH ×2 (09:40→20:10)
[2022-03-10 14:57] LABS: Partial Thromboplastin Ratio 2.1
[2022-03-10 15:04] LABS: Partial Thromboplastin Time 57.5 Seconds (21.0-31.0)
--- NOTE | 2022-03-10 15:40 | Hospitalist Progress Note ---
Date of Service March 10, 2022 Assessment & Plan (1) Bilateral pulmonary embolism: Plan 81-year-old lady with PMH of Mnire's disease presented to the ED 03/08 with complaint of not feeling well, patient is a poor historian, patient was found to have bilateral segmental and subsegmental PE on CTA chest. She is being managed for the following:-Next Acute pulmonary embolism, initial occurrence Patient presents with feeling of not feeling well, admitting CT chest revealed bilateral PE. Admitting BLE Doppler negative for DVT. Patient started on heparin drip, interested in Eliquis, costs $94 per month, Pt/her son are agreeable. Patient without any chest pain or chest heaviness or palpitation. Continue IV heparin drip, continue telemetry monitoring, switch to Eliquis when deemed no GI procedure (barium swallow [place]). Abnormal CTA chest: 03/08 CTA chest as follows 1. There are numerous bilateral segmental and subsegmental pulmonary emboli as detailed above. 2. Cardiomegaly. 3. There is no airspace consolidation or pleural effusion. 4. There are 2 pulmonary nodules at the right lung base measuring up to 15 mm. These can be followed as per the Fleischner criteria. See below. 5. Hepatosplenomegaly. 6. There is a 1.8 cm low-attenuation nodule in the left lobe of the thyroid gland. Nonemergent thyroid ultrasound is recommended in follow-up. 7. Additional findings as above. Patient to have follow-up CT chest in 3 months. Patient to have nonemergent thyroid ultrasound as an outpatient, patient to coordinate with PCP. Patient would likely benefit from oncology evaluation as an outpatient due to PE and concern of dysphagia to solids/GERD/burping symptoms of less than 1 year duration with note of distal esophageal thickening on CT abdomen pelvis from last admission on the background of pulmonary and thyroid gland nodules as above. UTI/Fever: Pt had fever 38.8 on 03/09, UA s/o UTI, U Cx pending. 03/09 Bl Cx pending. Continue w/ rocephin, no further fever. Likely GERD: Reported at least 1.5 months has been having increased burping and intermittent episodes of regurgitating foods. 02/24/22 w/ mild nonspecific distal esophageal wall thickening. GI consulted. Protonix, famotidine. Continue to monitor. Likely Barium Swallow will happen tomorrow. Other chronic medical conditions: HTN, HFpEF, HLD --->> continue with home meds as and when appropriate. DVT prophylaxis: Heparin drip Full code Patient's son Mr. Nick Ramires, contact #[phone]. 03/08 Pt's son was updated at bedside during second round on the patient. Admission and Anticipated Discharge Date Admission Date: March 08, 2022 Subjective Patient seen and examined at bedside for follow-up of acute pulm embolism. Patient was sitting up in chair, on room air, NAD, denies any new acute events overnight, denies any chest pain or chest heaviness, denies any headache or dizziness, denies any fever/chills/palpitation/belly pain/acute changes in bowel or bladder habits/other review of symptoms. Patient reports eating okay and moving bowels okay. Physical Exam Physical Exam: GENERAL: Alert and oriented x3. NAD, on RA. HEENT: No pallor, no icterus. Pupils equal, round and reactive to light. Oral mucosa moist. NECK: No JVD, no neck masses. HEART: S1 and S2 heard. Regular rate and rhythm. No murmur, no gallop. RESPIRATORY SYSTEM: Normal AP diameter. No accessory muscle use. No wheezing, no crackles. ABDOMEN: Soft, bowel sounds present, nontender, no distention. CENTRAL NERVOUS SYSTEM: No facial droop. Speech is clear. Obeys simple commands. Moves extremities. EXTREMITIES: No edema, no erythema seen. Results & Data Results & Data ([facility]) Vital Signs (Past 12 Hours) Vital Signs Temp Pulse Pulse Resp BP BP Pulse Ox 03/10/22 11:33 36.7 C 75 20 116/69 90 03/10/22 09:44 03/10/22 07:54 37.0 C 77 18 112/66 90 03/10/22 07:16 60 03/10/22 04:01 36.7 C 76 18 123/75 90 O2 Del Method 03/10/22 11:33 Room Air 03/10/22 09:44 Room Air 03/10/22 07:54 Room Air 03/10/22 07:16 03/10/22 04:01 Room Air
[2022-03-11 06:44] LABS: Hematocrit (blood only) 31.1 % (34.1-44.9); Hemoglobin 10.4 g/dl (12.0-16.0); Mean Corpuscular Hemoglobin 30.5 pg (25.0-34.0); Mean Corpuscular Hgb Conc 33.4 g/dL (32.0-36.0); Mean Corpuscular Volume 91.2 fL (80.0-100.0); Mean Platelet Volume 10.6 fL (9.4-12.3); Platelet Count 143 K/uL (130-400); RDW Coefficient of Variation 13.8 % (11.5-14.5); RDW Standard Deviation 46.3 fL (36.4-46.3); Red Blood Count 3.41 M/uL (3.93-5.22); White Blood Count 7.36 K/ul (4.8-10.8)
[2022-03-11 07:39] LABS: Partial Thromboplastin Ratio 2.7
[2022-03-11] MEDS: LOSARTAN POTASSIUM 25 MG TAB PO SCH (07:57)
[2022-03-11] MEDS: PANTOprazole 40 MG TAB PO SCH (07:57)
[2022-03-11] MEDS: cefTRIAXone SODIUM 2,000 MG in DEXTROSE 5% 50 ML IV SCH (07:57)
[2022-03-11] MEDS: MULTIVITAMIN TAB PO SCH (07:59)
[2022-03-11] MEDS: FAMOTIDINE 10 MG TABLET PO SCH ×2 (07:59→21:07)
[2022-03-11 08:04] LABS: Partial Thromboplastin Time 73.5 Seconds (21.0-31.0)
--- NOTE | 2022-03-11 09:20 | Fluoroscopy Report ---
FL barium swallow CLINICAL HISTORY: 81 years-old Female with esophageal thickening, dysphagia to solid food. Acute dys phasia TECHNIQUE: Barium contrast and effervescent crystals were administered to the patient under fluorosco pic examination. Multiple images were obtained and submitted for review. Barium tablet also administ ered. FLUOROSCOPY TIME: 1.4 minutes COMPARISON: CTA chest 03/08/2022. FINDINGS: During deglutition, contrast material flowed freely through the cervical esophagus. Laryngeal penetra tion without definite aspiration identified. No filling defect or mucosal abnormality is identified. No abnormal stricturing or mass effect is seen. The mid to distal esophagus is well coated and dist ended. No abnormal stricturing or mucosal abnormality is identified. No significant reflux or hiata l hernia was demonstrated during the exam. The GE junction is normal in appearance. Barium tablet p assed freely from the esophagus into the stomach. Mild to moderate esophageal dysmotility. IMPRESSION: 1. Laryngeal penetration without aspiration identified. Correlation with follow-up speech pathology c onsultation and video swallow study recommended. 2. Mild to moderate esophageal dysmotility. ACT 112: Negative or not required by law. The above report was generated using voice recognition software. It may contain grammatical, syntax o r spelling errors. Electronically signed by: Dharmesh Estrada M.D. 03/11/2022 9:19 AM
--- NOTE | 2022-03-11 09:25 | Gastrointestinal Consultation ---
Date of Consultation March 11, 2022 Assessment & Plan (1) Bilateral pulmonary embolism: 81 year old female admitted with UTI, new bilateral PE. GI was asked to evaluate for EGD consideration given history of GERD and dysphagia. Given her acute PE, no acute indication for EGD unless emergent Will need to medically optimize before consideration of EGD Consider anesthesia consultation Would recommend barium swallow to be completed Agree with PPI and pepcid as ordered Pending result of barium swallow, consider soft/slippery diet as tolerated Thank you for allowing us to participate in the care of this patient. Please call with any acute changes, questions or concerns. Please see addendum below with additional recommendation from my supervising physician. Supervising Physician Co-Signing Physician Notes I have seen and examined the patient and discussed the management with AUDRA Serna. Currently admitted with UTI and now new bilateral PE on anticoagulation. PE - she is off of oxygen, normal respirations, abd soft, Denies any episodes of dysphagia or odynophagia. Agree wtih PPI and pepcid. barium swallow without signs of overt obstruction. Could consider egd as an outpatient down the road after at least 12 weeks fo ac therapy. History of Present Illness Reason for Consultation: dysphagia Requesting Physician: Carlos Attending Physician: Junior Gonzalez MD History of Present Illness 81 year old female with history of Menieres disease and others below admitted through the ED with body aches and cold systems admitted with UTI abnormal Imaging showing bilateral pulmonary embolism. GI was asked to evaluate. She was out of room on 2 attempt to round and I was unable to locate her in radiology. Chart review was conducted. There is a report of GERD and intermittent solids dysphagia. Prior imaging showing eso wall thickening. Barium swallow 2021: pending CTAP 2021: Mild nonspecific distal esophageal wall thickening CTAP 2021: There are numerous bilateral segmental and subsegmental pulmonary emboli as detailed above. 2. Cardiomegaly. 3. There is no airspace consolidation or pleural effusion. 4. There are 2 pulmonary nodules at the right lung base measuring up to 15 mm. These can be followed as per the Fleischner criteria. See below. 5. Hepatosplenomegaly. 6. There is a 1.8 cm low-attenuation nodule in the left lobe of the thyroid gland. Nonemergent thyroid ultrasound is recommended in follow-up. Allergies Allergy/AdvReac Type Severity Reaction Status Date / Time No Known Allergies Allergy Verified 03/08/22 18:24 Home Medications Medication Instructions Recorded Confirmed Type multivitamin 1 tab PO DAILY 02/24/22 03/08/22 History losartan 25 mg tablet 25 mg PO QAM #30 tabs 02/26/22 03/08/22 Rx cholecalciferol (vitamin D3) 125 125 mcg PO DAILY 03/08/22 03/08/22 History mcg (5,000 unit) tablet (Vitamin D3) magnesium oxide 500 mg tablet 500 mg PO DAILY 03/08/22 03/08/22 History niacin 500 mg tablet 500 mg PO DAILY 03/08/22 03/08/22 History apixaban 5 mg tablet (Eliquis) 5 mg PO BID #74 tabs 03/09/22 Rx Patient History Medical History Elevated blood pressure reading Meniere disease Pulmonary edema Surgical History No pertinent past surgical history Family History Brother Stroke Sister Breast cancer Mother Colorectal cancer Social History Smoking Status: Never smoker Hx Alcohol Use: No Hx Substance Use: No Preferred Language: Romansh Communication Ability: Effective Shoe Folder Required: No Beliefs That Will Affect Care: None marital status: / Current Living Situation: Alone Other Information That Helps Us Care for You: No Feels Safe at Home: Yes Assistive Devices: None Review of Systems Review of Systems: Unable to locate patients on rounds despite attempt in room x 2 and attempt in imaging Physical Exam Physical Exam: Unable to locate patients on rounds despite attempt in room x 2 and attempt in imaging Results & Data ([facility]) Vital Signs (Past 12 Hours) Vital Signs Temp Pulse Pulse Resp BP Pulse Ox O2 Del Method 03/11/22 08:21 36.9 C 84 151/83 H 96 Room Air 03/11/22 03:20 36.7 C 64 20 122/71 94 Room Air 03/10/22 22:11 65 03/10/22 23:20 36.8 C 78 20 145/77 H 95 Room Air Laboratory Results 03/11/22 03/11/22 03/10/22 Range/Units 05:35 05:35 14:14 WBC 7.36 (4.8-10.8) K/ul RBC 3.41 L (3.93-5.22) M/uL Hgb 10.4 L (12.0-16.0) g/dl Hct 31.1 L (34.1-44.9) % MCV 91.2 (80.0-100.0) fL MCH 30.5 (25.0-34.0) pg MCHC 33.4 (32.0-36.0) g/dL RDW Std Deviation 46.3 (36.4-46.3) fL RDW Coeff of Yeny 13.8 (11.5-14.5) % Plt Count 143 (130-400) K/uL MPV 10.6 (9.4-12.3) fL APTT 73.5 H* 57.5 H* (21.0-31.0) Seconds PTT Ratio 2.7 2.1
[2022-03-11 15:36] LABS: Partial Thromboplastin Ratio 1.8
--- NOTE | 2022-03-11 15:40 | Hospitalist Progress Note ---
Date of Service March 11, 2022 Assessment & Plan (1) Bilateral pulmonary embolism: Plan 81-year-old lady with PMH of Mnire's disease presented to the ED 03/08 with complaint of not feeling well, patient is a poor historian, patient was found to have bilateral segmental and subsegmental PE on CTA chest. She is being managed for the following:-Next Acute pulmonary embolism, initial occurrence Patient presents with feeling of not feeling well, admitting CT chest revealed bilateral PE. Admitting BLE Doppler negative for DVT. Patient started on heparin drip, interested in Eliquis, costs $94 per month, Pt/her son are agreeable. Patient without any chest pain or chest heaviness or palpitation. Continue IV heparin drip, continue telemetry monitoring, switch to Eliquis from PM of 03/11/22. Abnormal CTA chest: 03/08 CTA chest as follows 1. There are numerous bilateral segmental and subsegmental pulmonary emboli as detailed above. 2. Cardiomegaly. 3. There is no airspace consolidation or pleural effusion. 4. There are 2 pulmonary nodules at the right lung base measuring up to 15 mm. These can be followed as per the Fleischner criteria. See below. 5. Hepatosplenomegaly. 6. There is a 1.8 cm low-attenuation nodule in the left lobe of the thyroid gland. Nonemergent thyroid ultrasound is recommended in follow-up. 7. Additional findings as above. Patient to have follow-up CT chest in 3 months. Patient to have nonemergent thyroid ultrasound as an outpatient, patient to coordinate with PCP. Patient would likely benefit from oncology evaluation as an outpatient due to PE and concern of dysphagia to solids/GERD/burping symptoms of less than 1 year duration with note of distal esophageal thickening on CT abdomen pelvis from last admission on the background of pulmonary and thyroid gland nodules as above. GI evaluated, agrees w/ PPI and pepcid, EGD as OP 12 wks out of acute issues. 03/11 Barium Swallo: 1. Laryngeal penetration without aspiration identified. Correlation with follow-up speech pathology consultation and video swallow study recommended. 2. Mild to moderate esophageal dysmotility. Speech consulted, awaiting recs. continue soft diet for the time being. UTI/Fever: Pt had fever 38.8 on 03/09, UA s/o UTI, U Cx mixed isidra. 03/09 Bl Cx pending. Continue w/ rocephin, no further fever. Likely GERD: Reported at least 1.5 months has been having increased burping and intermittent episodes of regurgitating foods. 02/24/22 w/ mild nonspecific distal esophageal wall thickening. GI consulted. Protonix, famotidine. Continue to monitor. Likely Barium Swallow will happen tomorrow. Other chronic medical conditions: HTN, HFpEF, HLD --->> continue with home meds as and when appropriate. DVT prophylaxis: Heparin drip, to be transitioned to eliquis from PM of . Full code Patient's son Mr. Nick Ramires, contact #[phone]. 03/08 Pt's son was updated at bedside during second round on the patient. Admission and Anticipated Discharge Date Admission Date: March 08, 2022 Subjective Patient seen and examined at bedside for follow-up of acute pulm embolism. Patient was sitting up in chair, on room air, NAD, denies any new acute events overnight, denies any chest pain or chest heaviness, denies any headache or dizziness, denies any fever/chills/palpitation/belly pain/acute changes in bowel or bladder habits/other review of symptoms. Patient reports eating okay and moving bowels okay. Pt had barium swallow eval today. Physical Exam Physical Exam: GENERAL: Alert and oriented x3. NAD, on RA. HEENT: No pallor, no icterus. Pupils equal, round and reactive to light. Oral mucosa moist. NECK: No JVD, no neck masses. HEART: S1 and S2 heard. Regular rate and rhythm. No murmur, no gallop. RESPIRATORY SYSTEM: Normal AP diameter. No accessory muscle use. No wheezing, no crackles. ABDOMEN: Soft, bowel sounds present, nontender, no distention. CENTRAL NERVOUS SYSTEM: No facial droop. Speech is clear. Obeys simple commands. Moves extremities. EXTREMITIES: No edema, no erythema seen. Results & Data Results & Data ([facility]) Vital Signs (Past 12 Hours) Vital Signs Temp Pulse Pulse Resp BP BP Pulse Ox 03/11/22 11:52 37.0 C 68 18 132/72 92 03/11/22 08:00 55 L 03/11/22 09:00 03/11/22 08:21 36.9 C 84 151/83 H 96 O2 Del Method 03/11/22 11:52 Room Air 03/11/22 08:00 03/11/22 09:00 Room Air 03/11/22 08:21 Room Air
[2022-03-11] MEDS ORDERED: MELATONIN 3 MG TAB PO PRN (17:07)
[2022-03-11] MEDS ORDERED: STOP ORDER [HEPARIN DRIP] ONE (20:00)
[2022-03-11] MEDS: APIXABAN 5 MG TABLET PO SCH (21:07)
[2022-03-12] MEDS: HEPARIN SODIUM/DEXTROSE 25,000 UNITS/500 ML BAG IV SCH (07:20)
[2022-03-12 07:37] LABS: Partial Thromboplastin Ratio 1.1; Partial Thromboplastin Time 29.9 Seconds (21.0-31.0)
[2022-03-12 07:42] LABS: BUN Creatinine Ratio 15.7 (10-20); Calcium 9.1 mg/dl (8.5-10.1); Est GFR (African American) 92.9 ml/min; Est GFR (Non-African American) 80.1 ml/min; Magnesium 2.2 mg/dl (1.7-2.4)
[2022-03-12] MEDS: LOSARTAN POTASSIUM 25 MG TAB PO SCH (08:23)
[2022-03-12] MEDS: PANTOprazole 40 MG TAB PO SCH (08:23)
[2022-03-12] MEDS: FAMOTIDINE 10 MG TABLET PO SCH (08:23)
[2022-03-12] MEDS: cefTRIAXone SODIUM 2,000 MG in DEXTROSE 5% 50 ML IV SCH (08:24)
[2022-03-12] MEDS: APIXABAN 5 MG TABLET PO SCH (08:24)
[2022-03-12] MEDS: MULTIVITAMIN TAB PO SCH (10:10)
--- NOTE | 2022-03-12 15:47 | Discharge Summary ---
Date of Service March 12, 2022 Admission HPI Per Admitting Provider Patient is 81 -year-old female with PMH Mnire's disease presenting to ER with complaint of "not feeling well". Patient is poor historian. History obtained from patient and patient's son. Recent hospitalization 02/24/22 - 02/26/22 for symptoms of not feeling well, tactile fever, chills myalgias and was noted to be hypoxic in the ER with ambulation. CXR at the time showeed cardiomegaly, interstitial coarsening, CT abdomen pelvis showed cardiomegaly, pulmonary edema, trace pleural effusions, pulmonary nodule. Echo with EF: 60-65%, moderately dilated right ventricle, moderately dilated right atrium, mild AR, mild MR, moderate tricuspid regurgitation, moderate pulmonary hypertension Patient was treated with dose of IV Lasix with reported improvement. Patient was on Lovenox for DVT prophylaxis during hospitalization. Discharged on losartan for noted elevated blood pressure in hospital. Further history obtained from patients son. He reports initial symptom onset on 02/16/22 with tactile fever, chills, myalgias, rhinorrhea. Son noticed patient seemed to be breathing heavier than usual. Patient denies any cough or noted SOB herself. Did home COVID-19 tests on 02/19 and 02/21 that were negative. Unvaccinat ed for COVID-19. Symptoms continued so was seen at [facility] on 02/22/22 and had reported negative COVID test and unknown results of influenza test and was started on Amoxicillin. Patient reported some upset stomach after starting antibiotic. Patient and patients son reports patient had improvement of symptoms during hospitalization and she reports was feeling well initially after hospital discharge. She denied any noted SOB, CP, cough. She was able to do ADLs and carry heavy planters in from outside after returning home. States past 4-5 days onset of "not feeling well" again. Difficult for patient to describe. States feels tired and not herself. C/O mild rhinorrhea. She was taking OTC Coricidin with limited relief. Does report night sweats past 2 nights, otherwise denies known fever or chills. Denies new cough, CP or SOB. Denies leg pain, erythema or edema. Reports at least 1.5 months has been having increased burping and intermittent episodes of regurgitating foods. Denies vomiting. Past couple of days with epigastric discomfort that radiates to RUQ and LUQ. She is unsure if eating aggravates symptoms. Does report decreased appetite. Tried Pepto-bismol with some relief of burping. Denies other abdominal pain. Denies diarrhea, constipation, vomiting, MACEDO, dizziness, syncope, vision changes, neck pain, orthopnea, palpitations, cough, sore throat, choking, otalgia, , paresthesias, extremity weakness, extremity edema, rashes, urinary symptoms. Denies history of EGD, colonoscopy. Reports unknown last mammogram. Denies h/o DVT/PE. Denies FH DVT/PE or known clotting disorder. No recent travel or surgery. Denies weight loss. Patient being admitted today for numerous bilateral segmental and subsegmental pulmonary emboli found on CTA chest. Admission Exam Per Admitting Provider General: no distress, WDWN Head: normocephalic, atraumatic Eyes: conjunctiva non-injected, anicteric ENT: normal inspection external ears, nose, mucous membranes moist Neck: supple, trachea midline Lungs: clear, no respiratory distress, no wheezing/rhonchi/rales CV: RRR, no pretibial edema Abd: normal BS, soft, non-tender to palpation Ext: no cyanosis, no erythema, no calf tenderness Neuro: A&O x 3, no focal deficits noted, normal affect Skin: warm, dry Principal Diagnosis Bilateral pulmonary embolism, initial occurrence Right lung base pulmonary nodules Nodule in the left lobe of thyroid gland Likely UTI Likely GERD Discharge Exam GENERAL: Alert and oriented x3. NAD, on RA. HEENT: No pallor, no icterus. Pupils equal, round and reactive to light. Oral mucosa moist. NECK: No JVD, no neck masses. HEART: S1 and S2 heard. Regular rate and rhythm. No murmur, no gallop. RESPIRATORY SYSTEM: Normal AP diameter. No accessory muscle use. No wheezing, no crackles. ABDOMEN: Soft, bowel sounds present, nontender, no distention. CENTRAL NERVOUS SYSTEM: No facial droop. Speech is clear. Obeys simple commands. Moves extremities. EXTREMITIES: No edema, no erythema seen. Discharge Data Allergies Allergy/AdvReac Type Severity Reaction Status Date / Time No Known Allergies Allergy Verified 03/08/22 18:24 Consultations 03/08/22 20:09 ED Decision to Admit Stat 03/09/22 00:14 Consult Gastroenterology Routine Ordered Studies 03/08/22 17:08 CT angio chest PE protocol Stat 03/09/22 US venous doppler LE BI Routine 03/11/22 08:00 FL barium swallow Routine 03/12/22 14:45 FL video swallow Routine Hospital Course (1) Bilateral pulmonary embolism: Plan 81-year-old lady with PMH of Mnire's disease presented to the ED 03/08 with complaint of not feeling well, patient is a poor historian, patient was found to have bilateral segmental and subsegmental PE on CTA chest. Shewas managed for the following:- Acute pulmonary embolism, initial occurrence Patient presents with feeling of not feeling well, admitting CT chest revealed bilateral PE. Admitting BLE Doppler negative for DVT. Patient started on heparin drip, interested in Eliquis, costs $94 per month, Pt/her son are agreeable. Patient without any chest pain or chest heaviness or palpitation. Initially on IV heparin drip, switched to Eliquis from PM of 03/11/22. Patient and her son aware that they are to take 10 Mg twice daily of Eliquis for 7 days followed by 5 Mg twice daily. Also they are aware that the need to establish with oncology as an outpatient. Abnormal CTA chest: 03/08 CTA chest as follows 1. There are numerous bilateral segmental and subsegmental pulmonary emboli as detailed above. 2. Cardiomegaly. 3. There is no airspace consolidation or pleural effusion. 4. There are 2 pulmonary nodules at the right lung base measuring up to 15 mm. These can be followed as per the Fleischner criteria. See below. 5. Hepatosplenomegaly. 6. There is a 1.8 cm low-attenuation nodule in the left lobe of the thyroid gland. Nonemergent thyroid ultrasound is recommended in follow-up. 7. Additional findings as above. Patient to have follow-up CT chest in 3 months. Patient to have nonemergent thyroid ultrasound as an outpatient, patient to coordinate with PCP. Patient would likely benefit from oncology evaluation as an outpatient due to PE and concern of dysphagia to solids/GERD/burping symptoms of less than 1 year duration with note of distal esophageal thickening on CT abdomen pelvis from last admission on the background of pulmonary and thyroid gland nodules as above. GI evaluated, agrees w/ PPI and pepcid, EGD as OP 12 wks out of acute issues. 03/11 Barium Swallo: 1. Laryngeal penetration without aspiration identified. Correlation with follow-up speech pathology consultation and video swallow study recommended. 2. Mild to moderate esophageal dysmotility. Speech consulted, video swallow done, deep penetration/no aspiration, recommended easy to chew/slippery diet. UTI/Fever: Pt had fever 38.8 on 03/09, UA s/o UTI, U Cx mixed isidra. We will continue with p.o. cefdinir for 2 more days upon discharge to complete the course. Likely GERD: Reported at least 1.5 months has been having increased burping and intermittent episodes of regurgitating foods. 02/24/22 w/ mild nonspecific distal esophageal wall thickening. GI consulted. Protonix, famotidine. Continue to monitor. Likely Barium Swallow will happen tomorrow. Other chronic medical conditions: HTN, HFpEF, HLD --->> continue with home meds as and when appropriate. DVT prophylaxis: Heparin drip, to be transitioned to eliquis from PM of 03/11/22. Full code Patient's son Mr. Nick Ramires, contact #[phone]. 03/08 Pt's son was updated at bedside during second round on the patient. Patient being discharged home with following instruction at the point of discharge: Follow-up with your primary care physician within a week time and you will likely need blood test CBC/CMP/magnesium level. Continue with losartan, maintain your blood pressure measurement twice a day and maintain a log to take to your primary care physician so that they can evaluate and adjust your blood pressure medications. You will need 2-month follow-up CT chest for your right lung lobe nodule. Coordinate with your PCP office. You will need thyroid ultrasound for 1.8 cm nodule in the left lobe of the thyroid gland detected in hospital in CT scan of chest. Coordinate with your PCP office. As discussed at the bedside, given multiple nodules/dysphagia of recent onset/blood clot, you will benefit from establishing oncology visit as an outpatient. Coordinate with the PCP office. GI evaluated you and recommends PPI and Pepcid, take them as prescribed. Also follow-up with GI for possible EGD scope as an outpatient about 2 to 3 months. Speech therapy evaluated you for your swallow, found deep penetration but no aspiration and recommends easy to chew/slippery diet. Recommends against any use of straws. For your likely UTI, you will be prescribed 2 more days of oral antibiotic, start taking them from tomorrow morning, take them as prescribed. For your bilateral lung blood clots, you are started on Eliquis from evening of 03/11/2022, you will need to take 10 mg twice daily for total of 14 doses and then take 5 mg twice daily thereafter. Take your medications as prescribed. Please make sure that you are able to get your medications today by calling your pharmacy before you leave the hospital so that your treatment continuity is not broken. Home Health Attestation I certify that this patient is under my care and that I, or a physicians regulatory affairs assistant working with me, had a face to-face encounter that meets the home health [id number] encounter requirements with this patient. The encounter with the patient was in whole, or in part, for the following medical condition, which is the primary reason for home health care (list medical condition): I certify that, based on my findings, the following services are medically necessary home health services: My clinical findings support the need for the above services because: Further, I certify that my clinical findings support that this patient is homebound (i.e. absences from home require considerable and taxing effort and are for medical reasons or mosque services or infrequently or of short duration when for other reasons) because: Certification for Home Health Services: Based on the above findings, I certify that this patient is confined to the home and needs intermittent custodial care, physical therapy and/or speech therapy or continues to need occupational therapy. The patient is under my care, and I have initiated the establishment of the plan of care. This patient will be followed by a physician who will periodically review the plan of care. Total Time Total Time Spent Total Time Spent (In Minutes): 45 Discharge Plan Discharge Items Patient Disposition: Home - Self-Care Reason For Visit: PE Discharge Diagnosis: Bilateral pulmonary embolism, initial occurrence Right lung base pulmonary nodules Nodule in the left lobe of thyroid gland Likely UTI Likely GERD Activity: Resume your previous activity Non-emergency contact: Primary Care Provider Call non-emergency contact if: you have any medication questions, your symptoms worsen and your temperature is above 101.5 Follow-up/Referrals: Nanci Walls DO [Primary Care Provider] - 03/14/22 10:00 am Diet: Other - See Diet Comment Diet Comment: Easy to chew, slippery diet. NO STRAWS. Addtl Attending Provider Instructions: Follow-up with your primary care physician within a week time and you will likely need blood test CBC/CMP/magnesium level. Continue with losartan, maintain your blood pressure measurement twice a day and maintain a log to take to your primary care physician so that they can evaluate and adjust your blood pressure medications. You will need 2-month follow-up CT chest for your right lung lobe nodule. Coordinate with your PCP office. You will need thyroid ultrasound for 1.8 cm nodule in the left lobe of the thyroid gland detected in hospital in CT scan of chest. Coordinate with your PCP office. As discussed at the bedside, given multiple nodules/dysphagia of recent onset/blood clot, you will benefit from establishing oncology visit as an outpatient. Coordinate with the PCP office. GI evaluated you and recommends PPI and Pepcid, take them as prescribed. Also follow-up with GI for possible EGD scope as an outpatient about 2 to 3 months. Speech therapy evaluated you for your swallow, found deep penetration but no aspiration and recommends easy to chew/slippery diet. Recommends against any use of straws. For your likely UTI, you will be prescribed 2 more days of oral antibiotic, start taking them from tomorrow morning, take them as prescribed. For your bilateral lung blood clots, you are started on Eliquis from evening of 03/11/2022, you will need to take 10 mg twice daily for total of 14 doses and then take 5 mg twice daily thereafter. Take your medications as prescribed. Please make sure that you are able to get your medications today by calling your pharmacy before you leave the hospital so that your treatment continuity is not broken. Pending Studies at Discharge: No Stand-Alone Forms: My [facility] [employer], Smoking Cessation Medications and DC Order Prescriptions: New Eliquis 5 mg tablet 5 mg PO BID Qty: 74 0RF Rx Instructions: Initially take 10 mg bid for 7 days then take 5 mg bid. famotidine [Acid Marriage And Family Counselor (famotidine)] 10 mg Tablet 10 mg PO BID Qty: 60 0RF pantoprazole 40 mg Tablet,Delayed Release (Dr/Ec) 40 mg PO QAM Qty: 30 0RF cefdinir 300 mg capsule 300 mg PO BID 2 Days Qty: 4 0RF Continued multivitamin Tablet 1 tab PO DAILY losartan 25 mg Tablet 25 mg PO QAM Qty: 30 0RF niacin 500 mg Tablet 500 mg PO DAILY magnesium oxide 500 mg Tablet 500 mg PO DAILY cholecalciferol (vitamin D3) [Vitamin D3] 125 mcg (5,000 unit) Tablet 125 mcg PO DAILY Discharge Orders: Discharge Order (Routine); Ordered 03/12/22 Ordered By: Junior Gonzalez Admission Data Admit Date/Time: 03/08/22 22:35 Attending Provider: Junior Gonzalez Admit Provider: Jose Holder Primary Care Provider: Nanci Walls Other Providers: Jose Holder ; Ledy Horton ; Kaushik Wu ; Jemima Akers ; Shobha Luz ; Amrita Tinoco ; Mariluz Lopez ; William Israel ; Florencia Lane ; Jose Hathaway ; Rashawn Villegas ; Americo Martinez ; Rayo Gallegos ; Trina Peters ; Arcelia Luna ; Barbara Rice ; Yaima Childs ; Charly Soliman ; Kirk Tejada ; Denny Clifford ; Chantelle Lara Other Interventions: Discharge Summary Assessment (RN) Last Done: 03/12/22 14:47
--- NOTE | 2022-03-12 15:49 | Fluoroscopy Report ---
FL video swallow CLINICAL HISTORY: 81 years-old Female with assess for aspiration. Acute dysphasia TECHNIQUE: Video fluoroscopic evaluation of swallowing was performed in the AP and lateral projection s by the speech pathology staff. The patient is fed thin liquid, mildly thick, pudding and cracker wi th paste consistencies. FLUOROSCOPY TIME: 3.1 minutes. COMPARISON STUDY: CT chest 03/08/2022 FINDINGS: Laryngeal penetration with thin liquid barium. Distal esophageal dysmotility noted with pud ding consistency. No aspiration is identified. IMPRESSION: 1. Laryngeal penetration with thin liquid barium. No aspiration identified. 2. Please see the speech pathologist report for detailed findings and recommendations. ACT 112: Negative or not required by law. Electronically signed by: Dharmesh Estrada M.D. 03/12/2022 3:47 PM
== END 2022-03-12 17:20 | disposition home or self-care (01) | DRG 176 ==
LOC: ED 15:34 → 2N 22:35
DX: I11.0 Hypertensive heart disease with heart failure; R91.8 Other nonspecific abnormal finding of lung field; N39.0 Urinary tract infection, site not specified; K21.00 Gastro-esophageal reflux disease with esophagitis, without bleeding; E04.1 Nontoxic single thyroid nodule; Z79.899 Other long term (current) drug therapy; E78.5 Hyperlipidemia, unspecified; D64.9 Anemia, unspecified; R13.10 Dysphagia, unspecified; I26.94 Multiple subsegmental thrombotic pulmonary emboli without acute cor pulmonale; I50.32 Chronic diastolic (congestive) heart failure

== ENCOUNTER 2023-10-29 07:08 | Inpatient (IN) ==
[2023-10-29] MEDS: METOPROLOL TARTRATE 1 MG/ML VIAL IV STA (07:30)
[2023-10-29 07:42] LABS: Basophils # (auto) 0.07 K/uL (0.00-0.20); Basophils % (auto) 0.8 %; Eosinophils % (auto) 1.1 %; Hematocrit (blood only) 48.4 % (37.0-47.0); Hemoglobin 15.3 g/dl (12.0-16.0); Immature Granulocytes # (auto) 0.02 K/uL (0.01-0.20); Immature Granulocytes % (auto) 0.2 %; Lymphocytes % (auto) 21.6 %; Mean Corpuscular Hemoglobin 30.6 pg (25.0-34.0); Mean Corpuscular Hgb Conc 31.6 g/dL (32.0-36.0); Mean Corpuscular Volume 96.8 fL (80.0-100.0); Mean Platelet Volume 10.8 fL (9.4-12.4); Monocytes # (auto) 0.71 K/uL (0.11-0.59); Monocytes % (auto) 8.1 %; Neutrophils % (auto) 68.2 %; Platelet Count 194 K/uL (130-400); RDW Coefficient of Variation 14.2 % (11.5-14.5); RDW Standard Deviation 49.8 fL (36.4-46.3)
--- NOTE | 2023-10-29 07:46 | XRay Report ---
XR chest 1V portable HISTORY: 83 years-old Female Dyspnea acute shortness of breath COMPARISON: 03/08/2022 TECHNIQUE: AP view of the chest FINDINGS: Cardiac silhouette is enlarged. No pneumothorax or large pleural effusion. Mild bibasilar opacities. Pulmonary vascular congestion with interstitial coarsening. Degenerative changes of the shoulders and spine. Bones appear grossly intact. IMPRESSION: 1. Cardiomegaly with suggestion of mild pulmonary edema. 2. Mild bibasilar opacities may represent atelectasis versus pneumonitis. ACT 112: Negative or not required by law. The above report was generated using voice recognition software. It may contain grammatical, syntax o r spelling errors. Electronically signed by: Dharmesh Estrada M.D. 10/29/2023 7:45 AM
--- NOTE | 2023-10-29 07:54 | Emergency Department Note ---
Impression & Plan Shortness of breath, Acute upper abdominal pain, Atrial flutter with rapid ventricular response, Acute exacerbation of CHF (congestive heart failure), Elevated troponin, Elevated brain natriuretic peptide (BNP) level ED Provider Note HISTORY OF PRESENT ILLNESS: Patient is an 83-year-old female presenting with upper abdominal pain and shortness of breath. Patient reports symptoms of an ongoing for the last few weeks. States that she has been unable to get in with her primary care provider. Locates the abdominal pain diffusely across her upper abdomen. Reports the pain is constant. She denies any chest pain. Reports she is short of breath both at rest and with exertion for the last few weeks. She is on Eliquis for history of PEs. Denies any missed doses. Denies any history of cardiac stents. Denies any nausea or vomiting. 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 Denies any fevers. Denies any recent sick contact exposures. ROS: as above PHYSICAL EXAM: Constitutional: Patient appears in no acute distress. HENT: Head: Normocephalic and atraumatic. Eyes: EOMI, PERRL Mouth/Throat: Mucous membranes moist. Neck: Trachea midline. Neck supple. Cardiovascular: Tachycardia. No murmurs, rubs or gallops. Intact distal pulses. Pulmonary/Chest: No respiratory distress. Breath sounds clear and equal bilaterally. No wheezes or rales. Abdominal: Abdomen soft, no tenderness, rebound or guarding. Musculoskeletal: No tenderness or deformity noted. +1 edema of bilateral lower extremities Skin: Warm and dry. No rash, erythema, pallor or cyanosis Psychiatric: Appropriate mood and affect for situation. Neurological: Alert and keenly responsive. CN II-XII grossly intact, moving all extremities equally and fully. MDM: - Vitals signs showed hypertension and tachycardia - History obtained via patient. History as above. - Chronic conditions affecting care: hx of PE; GERD - Differential diagnoses include, but are not limited to: Congestive heart failure; acute coronary syndrome; COPD/asthma exacerbation; pulmonary edema; pulmonary embolism; pneumonia; pneumothorax; viral syndrome; acute cholecystitis - Order placed for continuous cardiac monitoring. At this time, monitor showed rate of 106 bpm with irregular rhythm, per my interpretation. - External medical records reviewed. Echocardiogram dated 02/25/2022 was reviewed. Patient had a normal EF of 60 to 65% at that time. - EKG interpreted by myself showed atrial flutter. Rate 133 bpm. QT 302. No acute ischemic changes. - Laboratory workup interpreted by myself showed normal WBC; slightly elevated INR (1.2); normal lactate; stable electrolytes; elevated bilirubin (1.2); elevated troponin (17.4); elevated BNP (457); normal procalcitonin; normal lipase; normal TSH - CXR showed mild pulmonary edema, per my interpretation - Viral respiratory panel negative - CTA chest/abdomen/pelvis showed cardiomegaly with pulmonary edema, with trace left and small right pleural effusions. Also noted to have trace free fluid in the pericholecystic region which may be secondary to overload versus acute cholecystitis. - US gallbladder negative - Blood cultures obtained. - Patient given 40 mg IV lasix in ER. Given 1g IV magnesium - Patient given 5 mg IV lopressor, with improvement in HR. - Discussion was had with manager case management about patient's case and need for admission - Hospitalist consulted for admission - Patient admitted to [facility] for further evaluation and management. ASSESSMENT AND PLAN: Diagnosis: shortness of breath; acute upper abdominal pain; Atrial flutter with rapid ventricular response; acute exacerbation of CHF; elevated troponin; elevated BNP level Plan: admit Past Med/Surg History Problem List (Updated 10/29/23 @ 12:35 by Phoebe Paredes MD) Elevated brain natriuretic peptide (BNP) level (Acute) Elevated troponin (Acute) Acute exacerbation of CHF (congestive heart failure) (Acute) Atrial flutter with rapid ventricular response (Acute) Acute upper abdominal pain (Acute) Shortness of breath (Acute) GERD (gastroesophageal reflux disease) Bilateral pulmonary embolism (Acute) Chest pain (Acute) Shortness of breath (Acute) Pulmonary edema (Acute) Elevated blood pressure reading Epigastric discomfort Pulmonary embolism Hypoxemia (Acute) Acute dyspnea (Acute) Pulmonary nodule (Acute) Medical History Elevated blood pressure reading Meniere disease Pulmonary edema Surgical History No pertinent past surgical history Family History Brother Stroke Sister Breast cancer Mother Colorectal cancer Social History Smoking Status: Never smoker Hx Alcohol Use: No Hx Substance Use: No Preferred Language: Nepali Communication Ability: Effective Radiologic Therapist Required: No Beliefs That Will Affect Care: None marital status: / Current Living Situation: Alone Feels Safe at Home: Yes Assistive Devices: None Allergies Allergies Allergy/AdvReac Type Severity Reaction Status Date / Time No Known Allergies Allergy Verified 10/29/23 10:07 Home Meds Home Medications Medication Instructions Recorded Confirmed multivitamin 1 tab PO DAILY 02/24/22 10/29/23 cholecalciferol (vitamin D3) 125 125 mcg PO DAILY 03/08/22 10/29/23 mcg (5,000 unit) tablet (Vitamin D3) magnesium oxide 500 mg PO DAILY 03/08/22 10/29/23 niacin 500 mg tablet 500 mg PO DAILY 03/08/22 10/29/23 Previous Rx's Medication Instructions Recorded losartan 25 mg tablet 25 mg PO QAM #30 tabs 02/26/22 apixaban 5 mg tablet (Eliquis) 5 mg PO BID #60 tabs 03/12/22 Results & Data (ED) Vital Signs Vital Signs - 24 hr 10/29/23 07:11 10/29/23 07:30 10/29/23 07:30 Temperature 36.3 C L Temperature Source Temporal Artery Scan Pulse Rate 137 H 123 H 124 H Pulse Rate [Apical] Pulse Rate from SpO2 Sensor 104 H Respiratory Rate 20 25 H Respiratory Effort / Characteristics Non-Labored Respiratory Depth Normal Respiratory Pattern Blood Pressure 169/109 H 161/116 H Blood Pressure [Right Arm] Blood Pressure Mean 129 Blood Pressure Mean [Right Arm] Blood Pressure Position Sitting Blood Pressure Position [Right Arm] Pulse Oximetry 96 95 Oxygen Delivery Method Room Air Sepsis Recent Fever Within 48 Hours No Sepsis New/Unexplained Change in Mental Status No Sepsis Action Taken by Nursing No Action Required 10/29/23 07:30 10/29/23 07:39 10/29/23 07:40 Temperature Temperature Source Pulse Rate 114 H 101 H Pulse Rate [Apical] Pulse Rate from SpO2 Sensor 111 H Respiratory Rate 24 18 Respiratory Effort / Characteristics Respiratory Depth Respiratory Pattern Blood Pressure 161/116 H Blood Pressure [Right Arm] Blood Pressure Mean 127 Blood Pressure Mean [Right Arm] Blood Pressure Position Blood Pressure Position [Right Arm] Pulse Oximetry 95 96 Oxygen Delivery Method Room Air Sepsis Recent Fever Within 48 Hours Sepsis New/Unexplained Change in Mental Status Sepsis Action Taken by Nursing 10/29/23 07:42 10/29/23 07:44 10/29/23 07:44 Temperature Temperature Source Pulse Rate Pulse Rate [Apical] 112 H Pulse Rate from SpO2 Sensor Respiratory Rate 18 Respiratory Effort / Characteristics Non-Labored Spontaneous Non-Labored Spontaneous Respiratory Depth Normal Normal Respiratory Pattern Regular Blood Pressure Blood Pressure [Right Arm] 141/111 H Blood Pressure Mean Blood Pressure Mean [Right Arm] 121 Blood Pressure Position Blood Pressure Position [Right Arm] Sitting Pulse Oximetry 96 96 Oxygen Delivery Method Room Air Room Air Room Air Sepsis Recent Fever Within 48 Hours Sepsis New/Unexplained Change in Mental Status Sepsis Action Taken by Nursing 10/29/23 07:45 10/29/23 07:54 10/29/23 08:07 Temperature Temperature Source Pulse Rate 104 H 94 H Pulse Rate [Apical] Pulse Rate from SpO2 Sensor Respiratory Rate 23 Respiratory Effort / Characteristics Respiratory Depth Respiratory Pattern Blood Pressure 133/112 H Blood Pressure [Right Arm] Blood Pressure Mean 119 Blood Pressure Mean [Right Arm] Blood Pressure Position Blood Pressure Position [Right Arm] Pulse Oximetry Oxygen Delivery Method Sepsis Recent Fever Within 48 Hours Sepsis New/Unexplained Change in Mental Status Sepsis Action Taken by Nursing 10/29/23 08:21 10/29/23 08:30 10/29/23 08:30 Temperature Temperature Source Pulse Rate 103 H 103 H Pulse Rate [Apical] Pulse Rate from SpO2 Sensor 109 H 91 H Respiratory Rate 19 33 H Respiratory Effort / Characteristics Respiratory Depth Respiratory Pattern Blood Pressure 124/92 Blood Pressure [Right Arm] Blood Pressure Mean 96 Blood Pressure Mean [Right Arm] Blood Pressure Position Blood Pressure Position [Right Arm] Pulse Oximetry 95 95 Oxygen Delivery Method Sepsis Recent Fever Within 48 Hours Sepsis New/Unexplained Change in Mental Status Sepsis Action Taken by Nursing 10/29/23 08:30 10/29/23 08:48 10/29/23 08:54 Temperature Temperature Source Pulse Rate 103 H 95 H 95 H Pulse Rate [Apical] Pulse Rate from SpO2 Sensor 99 H 98 H Respiratory Rate 18 24 Respiratory Effort / Characteristics Respiratory Depth Respiratory Pattern Blood Pressure 124/92 Blood Pressure [Right Arm] Blood Pressure Mean Blood Pressure Mean [Right Arm] Blood Pressure Position Blood Pressure Position [Right Arm] Pulse Oximetry 95 95 Oxygen Delivery Method Sepsis Recent Fever Within 48 Hours Sepsis New/Unexplained Change in Mental Status Sepsis Action Taken by Nursing 10/29/23 09:00 10/29/23 09:00 10/29/23 09:00 Temperature Temperature Source Pulse Rate 113 H Pulse Rate [Apical] 95 H Pulse Rate from SpO2 Sensor 99 H Respiratory Rate 18 14 Respiratory Effort / Characteristics Non-Labored Spontaneous Respiratory Depth Normal Respiratory Pattern Blood Pressure 130/97 Blood Pressure [Right Arm] 130/97 Blood Pressure Mean 112 Blood Pressure Mean [Right Arm] 108 Blood Pressure Position Blood Pressure Position [Right Arm] Sitting Pulse Oximetry 96 96 Oxygen Delivery Method Room Air Sepsis Recent Fever Within 48 Hours Sepsis New/Unexplained Change in Mental Status Sepsis Action Taken by Nursing 10/29/23 09:15 10/29/23 09:15 10/29/23 09:21 Temperature Temperature Source Pulse Rate 91 H 100 H Pulse Rate [Apical] Pulse Rate from SpO2 Sensor 86 99 H Respiratory Rate 14 13 Respiratory Effort / Characteristics Respiratory Depth Respiratory Pattern Blood Pressure 139/99 Blood Pressure [Right Arm] Blood Pressure Mean 115 Blood Pressure Mean [Right Arm] Blood Pressure Position Blood Pressure Position [Right Arm] Pulse Oximetry 94 98 Oxygen Delivery Method Sepsis Recent Fever Within 48 Hours Sepsis New/Unexplained Change in Mental Status Sepsis Action Taken by Nursing 10/29/23 10:09 10/29/23 10:12 10/29/23 10:30 Temperature Temperature Source Pulse Rate 104 H 107 H 98 H Pulse Rate [Apical] Pulse Rate from SpO2 Sensor 108 H 109 H 104 H Respiratory Rate 24 20 24 Respiratory Effort / Characteristics Respiratory Depth Respiratory Pattern Blood Pressure Blood Pressure [Right Arm] Blood Pressure Mean Blood Pressure Mean [Right Arm] Blood Pressure Position Blood Pressure Position [Right Arm] Pulse Oximetry 94 94 96 Oxygen Delivery Method Sepsis Recent Fever Within 48 Hours Sepsis New/Unexplained Change in Mental Status Sepsis Action Taken by Nursing 10/29/23 10:30 10/29/23 10:42 10/29/23 10:44 Temperature Temperature Source Pulse Rate 99 H Pulse Rate [Apical] 95 H Pulse Rate from SpO2 Sensor 103 H Respiratory Rate 20 18 Respiratory Effort / Characteristics Non-Labored Spontaneous Respiratory Depth Normal Respiratory Pattern Blood Pressure 133/93 Blood Pressure [Right Arm] 130/103 H Blood Pressure Mean 109 Blood Pressure Mean [Right Arm] 112 Blood Pressure Position Blood Pressure Position [Right Arm] Lying Pulse Oximetry 96 96 Oxygen Delivery Method Room Air Sepsis Recent Fever Within 48 Hours Sepsis New/Unexplained Change in Mental Status Sepsis Action Taken by Nursing 10/29/23 10:45 10/29/23 11:03 10/29/23 11:15 Temperature Temperature Source Pulse Rate 93 H 103 H 111 H Pulse Rate [Apical] Pulse Rate from SpO2 Sensor 97 H 101 H 119 H Respiratory Rate 23 23 23 Respiratory Effort / Characteristics Respiratory Depth Respiratory Pattern Blood Pressure Blood Pressure [Right Arm] Blood Pressure Mean Blood Pressure Mean [Right Arm] Blood Pressure Position Blood Pressure Position [Right Arm] Pulse Oximetry 96 97 97 Oxygen Delivery Method Sepsis Recent Fever Within 48 Hours Sepsis New/Unexplained Change in Mental Status Sepsis Action Taken by Nursing 10/29/23 11:21 10/29/23 12:10 10/29/23 12:13 Temperature Temperature Source Pulse Rate 100 H 107 H 106 H Pulse Rate [Apical] Pulse Rate from SpO2 Sensor 108 H Respiratory Rate 21 22 Respiratory Effort / Characteristics Respiratory Depth Respiratory Pattern Blood Pressure 165/110 H Blood Pressure [Right Arm] Blood Pressure Mean 134 Blood Pressure Mean [Right Arm] Blood Pressure Position Blood Pressure Position [Right Arm] Pulse Oximetry 97 95 Oxygen Delivery Method Room Air Room Air Sepsis Recent Fever Within 48 Hours Sepsis New/Unexplained Change in Mental Status Sepsis Action Taken by Nursing Laboratory Data 10/29/23 07:25 10/29/23 07:25 Lab Results 10/29/23 10/29/23 Range/Units 07:25 07:37 WBC 8.80 (4.8-10.8) K/ul RBC 5.00 (4.20-5.40) M/uL Hgb 15.3 (12.0-16.0) g/dl Hct 48.4 H (37.0-47.0) % MCV 96.8 (80.0-100.0) fL MCH 30.6 (25.0-34.0) pg MCHC 31.6 L (32.0-36.0) g/dL RDW Std Deviation 49.8 H (36.4-46.3) fL RDW Coeff of Yeny 14.2 (11.5-14.5) % Plt Count 194 (130-400) K/uL MPV 10.8 (9.4-12.4) fL Immature Gran % (Auto) 0.2 % Neut % (Auto) 68.2 % Lymph % (Auto) 21.6 % Dyer % (Auto) 8.1 % Eos % (Auto) 1.1 % Baso % (Auto) 0.8 % Neut # (Auto) 6.00 (1.40-6.50) K/uL Lymph # (Auto) 1.90 (1.20-3.40) K/uL Dyer # (Auto) 0.71 H (0.11-0.59) K/uL Eos # (Auto) 0.10 (0.00-0.50) K/uL Baso # (Auto) 0.07 (0.00-0.20) K/uL Immature Gran # (Auto) 0.02 (0.01-0.20) K/uL PT 12.6 H (9.0-12.0) Seconds INR 1.2 H (0.9-1.1) APTT 28 (21-31) Seconds PTT Ratio 1.0 Sodium 141 (136-145) mmol/L Potassium 3.7 (3.5-5.1) mmol/L Chloride 107 (98-107) mmol/L Carbon Dioxide 28 (21-32) mmol/L Anion Gap 6 (3-11) BUN 24 H (6-23) mg/dl Creatinine 0.81 (0.6-1.2) mg/dl Est Cr Clr Drug Dosing 47.5 ml/min Est GFR ( Amer) 76.8 ml/min Est GFR (Non-Af Amer) 66.2 ml/min BUN/Creatinine Ratio 29.6 H (10-20) Glucose 120 H (70-99(Fasting)) mg/dl Lactate 1.6 (0.4-2.0) mmol/L Calcium 9.7 (8.6-10.3) mg/dl Magnesium 1.9 (1.7-2.4) mg/dl Total Bilirubin 1.2 H (0.2-1.0) mg/dl AST 36 (13-39) U/L ALT 44 (7-52) U/L Alkaline Phosphatase 84 (34-104) U/L Troponin I High Sens 17.4 H (0-14) pg/ml B-Natriuretic Peptide 457 H (0-100) pg/ml Total Protein 8.6 H (6.0-8.3) gm/dl Albumin 4.2 (3.4-5.0) gm/dl Globulin 4.4 H (2.5-4.0) gm/dl Albumin/Globulin Ratio 1.0 (0.9-2) Lipase 16 (11-82) U/L Procalcitonin 0.03 (0-0.5) ng/ml TSH 4.368 (0.300-4.500) uIu/ml Adenovirus (PCR) Not Detected (NotDetected) B. pertussis DNA (PCR) Not Detected (NotDetected) B.parapertussis DNA PCR Not Detected (NotDetected) C. pneumoniae DNA (PCR) Not Detected (NotDetected) Coronavirus OC43 (PCR) Not Detected (NotDetected) Coronavirus HKU1 (PCR) Not Detected (NotDetected) Coronavirus 229E (PCR) Not Detected (NotDetected) SARS-CoV-2 (PCR) Not Detected (NotDetected) Coronavirus NL63 (PCR) Not Detected (NotDetected) Human Metapneumovir PCR Not Detected (NotDetected) Influenza Type A (PCR) Not Detected (NotDetected) Influenza Type B (PCR) Not Detected (NotDetected) M. pneumoniae (PCR) Not Detected (NotDetected) Parainfluenza 1 (PCR) Not Detected (NotDetected) Parainfluenza 2 (PCR) Not Detected (NotDetected) Parainfluenza 3 (PCR) Not Detected (NotDetected) Parainfluenza 4 (PCR) Not Detected (NotDetected) RSV (PCR) Not Detected (NotDetected) Entero/Rhino (PCR) Not Detected (NotDetected) Administered Medications Discontinued Medications Furosemide (Furosemide 40 Mg/4 Ml Vial) 40 mg IV ONE ONE Stop: 10/29/23 10:41 Last Admin: 10/29/23 12:10 Dose: 40 mg Documented By: CARLOS Magnesium Sulfate/Dextrose (Magnesium Sulfate / D5w) 1 gm in 100 mls @ 100 mls/hr IV NOW STA Stop: 10/29/23 09:03 Last Infusion: 10/29/23 09:17 Dose: Infused Documented By: Admin: 10/29/23 08:13 Dose: 100 mls/hr Documented By: CC Ioversol (Optiray 320 125ml) 112 ml IV ONCE ONE Stop: 10/29/23 09:34 Last Admin: 10/29/23 09:33 Dose: 112 ml Documented By: CLARISA Metoprolol Tartrate (Metoprolol Tartrate 1 Mg/Ml Vial) 5 mg IV NOW STA Stop: 10/29/23 07:28 Last Admin: 10/29/23 07:30 Dose: 5 mg Documented By: ISHA Imaging Data Radiologist's Impression: Chest X-Ray 10/29/23 07:18 XR chest 1V portable HISTORY: 83 years-old Female Dyspnea acute shortness of breath COMPARISON: 03/08/2022 TECHNIQUE: AP view of the chest FINDINGS: Cardiac silhouette is enlarged. No pneumothorax or large pleural effusion. Mild bibasilar opacities. Pulmonary vascular congestion with interstitial coarsening. Degenerative changes of the shoulders and spine. Bones appear grossly intact. IMPRESSION: 1. Cardiomegaly with suggestion of mild pulmonary edema. 2. Mild bibasilar opacities may represent atelectasis versus pneumonitis. ACT 112: Negative or not required by law. The above report was generated using voice recognition software. It may contain grammatical, syntax or spelling errors. Electronically signed by: Dharmesh Estrada M.D. 10/29/2023 7:45 AM Abdomen/Pelvis CTA 10/29/23 08:47 CT angio chest dissec wo/w con, CT angio abdomen pelvis w con HISTORY: 83 years-old Female shortness of breath acute chest and abdominal pain COMPARISON: CT chest 03/08/2022, CT abdomen and pelvis 02/24/2022 TECHNIQUE: CTA of the chest was obtained with and without IV contrast. CTA of the abdomen and pelvis with IV contrast. All measurements were obtained according to NASCET criteria. 3-D coronal and sagittal maps were obtained and submitted for review. A dose lowering technique was used consistent with the principals of GURU. FINDINGS: CTA CHEST: Moderate cardiomegaly without pericardial effusion. Mild coronary artery calcifications. There is patency of the image great vessels. Mixing artifact is noted within the thoracic arch and descending thoracic aorta. No aneurysm, dissection, intramural or mediastinal hematoma. There is mild to moderate atherosclerosis of the thoracic aorta. Descending thoracic aortic tortuosity. Mild dilation of the pulmonary artery suggestive of pulmonary arterial hypertension. No pulmonary emboli identified. CT CHEST: Multinodular thyroid which demonstrated with 1.8 cm left-sided thyroid nodule. Nonspecific borderline enlarged subcarinal and hilar lymph nodes. Trace left and small right pleural effusions. No pneumothorax. Intralobular septal and bronchial wall thickening with intermixed groundglass densities. Mild subsegmental bibasilar consolidation. Stable hypodense 1.5 cm solid nodule within the medial segment right middle lobe. Stable 4 mm solid nodule of the basal right lower lobe on image 152. Thin-walled bibasilar cysts. Unremarkable soft tissues. No acute fracture. CTA ABDOMEN AND PELVIS: Mild atherosclerosis. No abdominal aortic aneurysm or dissection. Patency of the celiac, superior mesenteric and inferior mesenteric arteries. The renal arteries are also widely patent. There is a patent accessory left renal artery. The iliac and imaged femoral arteries appear patent. No aneurysm, dissection, high-grade stenosis or arterial occlusion. No active extravasation. CT ABDOMEN AND PELVIS: There is no pneumatosis or pneumoperitoneum. The unremarkable spleen, pancreas and adrenal glands. Bladder wall thickening with pericholecystic edema. No significant gallbladder distention. Portal edema is likely secondary to overhydration. The liver is enlarged measuring up to 19.4 cm in length. Prominent heterogeneous enhancement of the inferior pole left kidney. No hydronephrosis. Nonspecific urinary bladder wall thickening. No adnexal mass lesions identified. Trace free pelvic fluid. Subcentimeter retroperitoneal lymph nodes. Mild nonspecific distal esophageal wall thickening. No bowel obstruction. Noninflamed appendix. Unremarkable soft tissues. Degenerative changes of the spine, pelvis and hips. IMPRESSION: 1. Unremarkable CTA of the chest, abdomen and pelvis. 2. Cardiomegaly with pulmonary edema, trace left and small right pleural effusions. 3. Mild bibasilar opacities suggest atelectasis. 4. Trace free pelvic fluid is noted along with nonspecific pericholecystic ascites. Findings may be secondary to the fluid overload however could be evaluated with ultrasound to exclude acute cholecystitis. 5. Mildly decreased enhancement of the inferior pole left kidney. Correlation with urinalysis recommended. 6. Stable 1.5 cm hypodense nodule of the medial segment right middle lobe. 7. Additional findings as above. ACT 112: Negative or not required by law. The above report was generated using voice recognition software. It may contain grammatical, syntax or spelling errors. Electronically signed by: Dharmesh Estrada M.D. 10/29/2023 10:35 AM Chest CTA 10/29/23 08:47 CT angio chest dissec wo/w con, CT angio abdomen pelvis w con HISTORY: 83 years-old Female shortness of breath acute chest and abdominal pain COMPARISON: CT chest 03/08/2022, CT abdomen and pelvis 02/24/2022 TECHNIQUE: CTA of the chest was obtained with and without IV contrast. CTA of the abdomen and pelvis with IV contrast. All measurements were obtained according to NASCET criteria. 3-D coronal and sagittal maps were obtained and submitted for review. A dose lowering technique was used consistent with the principals of GURU. FINDINGS: CTA CHEST: Moderate cardiomegaly without pericardial effusion. Mild coronary artery calcifications. There is patency of the image great vessels. Mixing artifact is noted within the thoracic arch and descending thoracic aorta. No aneurysm, dissection, intramural or mediastinal hematoma. There is mild to moderate atherosclerosis of the thoracic aorta. Descending thoracic aortic tortuosity. Mild dilation of the pulmonary artery suggestive of pulmonary arterial hypertension. No pulmonary emboli identified. CT CHEST: Multinodular thyroid which demonstrated with 1.8 cm left-sided thyroid nodule. Nonspecific borderline enlarged subcarinal and hilar lymph nodes. Trace left and small right pleural effusions. No pneumothorax. Intralobular septal and bronchial wall thickening with intermixed groundglass densities. Mild subsegmental bibasilar consolidation. Stable hypodense 1.5 cm solid nodule within the medial segment right middle lobe. Stable 4 mm solid nodule of the basal right lower lobe on image 152. Thin-walled bibasilar cysts. Unremarkable soft tissues. No acute fracture. CTA ABDOMEN AND PELVIS: Mild atherosclerosis. No abdominal aortic aneurysm or dissection. Patency of the celiac, superior mesenteric and inferior mesenteric arteries. The renal arteries are also widely patent. There is a patent accessory left renal artery. The iliac and imaged femoral arteries appear patent. No aneurysm, dissection, high-grade stenosis or arterial occlusion. No active extravasation. CT ABDOMEN AND PELVIS: There is no pneumatosis or pneumoperitoneum. The unremarkable spleen, pancreas and adrenal glands. Bladder wall thickening with pericholecystic edema. No significant gallbladder distention. Portal edema is likely secondary to overhydration. The liver is enlarged measuring up to 19.4 cm in length. Prominent heterogeneous enhancement of the inferior pole left kidney. No hydronephrosis. Nonspecific urinary bladder wall thickening. No adnexal mass lesions identified. Trace free pelvic fluid. Subcentimeter retroperitoneal lymph nodes. Mild nonspecific distal esophageal wall thickening. No bowel obstruction. Noninflamed appendix. Unremarkable soft tissues. Degenerative changes of the spine, pelvis and hips. IMPRESSION: 1. Unremarkable CTA of the chest, abdomen and pelvis. 2. Cardiomegaly with pulmonary edema, trace left and small right pleural effusions. 3. Mild bibasilar opacities suggest atelectasis. 4. Trace free pelvic fluid is noted along with nonspecific pericholecystic ascites. Findings may be secondary to the fluid overload however could be evaluated with ultrasound to exclude acute cholecystitis. 5. Mildly decreased enhancement of the inferior pole left kidney. Correlation with urinalysis recommended. 6. Stable 1.5 cm hypodense nodule of the medial segment right middle lobe. 7. Additional findings as above. ACT 112: Negative or not required by law. The above report was generated using voice recognition software. It may contain grammatical, syntax or spelling errors. Electronically signed by: Dharmesh Estrada M.D. 10/29/2023 10:35 AM Gallbladder Ultrasound 10/29/23 10:40 US gallbladder CLINICAL HISTORY: abd pain; pericholecystic fluid on CT TECHNIQUE: Multiple real-time sonographic images of the right upper quadrant were obtained. Comparison: Comparison is made to CT abdomen pelvis 10/29/2023 FINDINGS: The liver is diffusely homogenous with normal contour and echogenicity. No focal mass lesions are seen. No intrahepatic ductal dilatation is seen. No gallstones or sludge are identified within the gallbladder. The gallbladder wall measures 3 mm. There is no pericholecystic fluid present. A sonographic Da Silva's sign was not elicited by the ordinary seaman. The common duct measures 0.4 cm in diameter at the level of the hepatic artery. The visualized portions of the pancreas appear normal. The right kidney shows normal echogenicity, cortical thickness and renal contour. The right kidney shows no evidence of hydronephrosis. Parapelvic cysts are seen. Incidental note is made of a right pleural effusion. IMPRESSION: No evidence of acute cholecystitis. Additional findings as above. ACT 112: Negative or not required by law. Electronically signed by: Dameon Bass M.D. 10/29/2023 12:30 PM Discharge Plan Visit Data Chief Complaint: Shortness of Breath/Dyspnea ED Provider: Phoebe Paredes Discharge Problem: Shortness of breath, Acute upper abdominal pain, Atrial flutter with rapid ventricular response, Acute exacerbation of CHF (congestive heart failure), Elevated troponin, Elevated brain natriuretic peptide (BNP) level Forms Stand Alone Forms: My [facility] Prescriptions Prescriptions: No Action multivitamin Tablet 1 tab PO DAILY losartan 25 mg Tablet 25 mg PO QAM Qty: 30 0RF niacin 500 mg Tablet 500 mg PO DAILY magnesium oxide 500 mg Tablet 500 mg PO DAILY cholecalciferol (vitamin D3) [Vitamin D3] 125 mcg (5,000 unit) Tablet 125 mcg PO DAILY Eliquis 5 mg tablet 5 mg PO BID Qty: 60 0RF Referrals Referrals: Nanci Walls DO [Outside Practitioners] -
[2023-10-29 08:03] LABS: Albumin Level 4.2 gm/dl (3.4-5.0); BUN Creatinine Ratio 29.6 (10-20); Bilirubin,Total 1.2 mg/dl (0.2-1.0); Calcium 9.7 mg/dl (8.6-10.3); Creatinine Clr Calc Pharmacy 47.5 ml/min; Est GFR (African American) 76.8 ml/min; Est GFR (Non-African American) 66.2 ml/min; Globulin 4.4 gm/dl (2.5-4.0); Magnesium 1.9 mg/dl (1.7-2.4); Potassium 3.7 mmol/L (3.5-5.1); Total Protein 8.6 gm/dl (6.0-8.3)
[2023-10-29 08:10] LABS: Troponin I High Sensitivity 17.4 pg/ml (0-14)
[2023-10-29 08:12] LABS: INR 1.2 (0.9-1.1); Partial Thromboplastin Time 28 Seconds (21-31); Prothrombin Time 12.6 Seconds (9.0-12.0)
[2023-10-29] MEDS: MAGNESIUM SULFATE / D5W 1 GM/100 ML BAG IV STA (08:13)
[2023-10-29 08:36] LABS: Adenovirus PCR Not Detected (NotDetected); Bordetella parapertussis PCR Not Detected (NotDetected); Bordetella pertussis PCR Not Detected (NotDetected); Chlamydia pneumoniae PCR Not Detected (NotDetected); Coronavirus 229E PCR Not Detected (NotDetected); Coronavirus CoV-2 (COVID19)PCR Not Detected (NotDetected); Coronavirus HKU1 PCR Not Detected (NotDetected); Coronavirus NL63 PCR Not Detected (NotDetected); Coronavirus OC43PCR Not Detected (NotDetected); Human Metapneumovirus PCR Not Detected (NotDetected); Influenza A PCR Not Detected (NotDetected); Influenza B PCR Not Detected (NotDetected); Mycoplasma pneumoniae PCR Not Detected (NotDetected); Parainfluenza Virus 1 PCR Not Detected (NotDetected); Parainfluenza Virus 2 PCR Not Detected (NotDetected); Parainfluenza Virus 3 PCR Not Detected (NotDetected); Parainfluenza Virus 4 PCR Not Detected (NotDetected); Respiratory Syncytial VirusPCR Not Detected (NotDetected); Rhinovirus/Enterovirus PCR Not Detected (NotDetected)
[2023-10-29] MEDS: OPTIRAY 320 125ml IV ONE (09:33)
[2023-10-29 09:35] LABS: Thyroid Stimulating Hormone 4.368 uIu/ml (0.300-4.500)
--- NOTE | 2023-10-29 09:56 | Electrocardiogram Report ---
Test Reason : Blood Pressure : / mmHG Vent. Rate : 133 BPM Atrial Rate : 394 BPM P-R Int : 000 ms QRS Dur : 082 ms QT Int : 302 ms P-R-T Axes : 000 -01 053 degrees QTc Int : 449 ms Atrial fibrillation Poor R wave progression, consider anterior SC vs. lead placement vs. LVH Abnormal ECG When compared with ECG of 08-MAR-2022 15:40, Atrial fibrillation has replaced Sinus rhythm Questionable change in initial forces of Anterior leads Non-specific change in ST segment in Lateral leads Confirmed by Toby Shields ([id number]) on 10/29/2023 9:56:06 AM Referred By: Confirmed By:Esteban Shields
--- NOTE | 2023-10-29 10:38 | CT Scan Report ---
CT angio chest dissec wo/w con, CT angio abdomen pelvis w con HISTORY: 83 years-old Female shortness of breath acute chest and abdominal pain COMPARISON: CT chest 03/08/2022, CT abdomen and pelvis 02/24/2022 TECHNIQUE: CTA of the chest was obtained with and without IV contrast. CTA of the abdomen and pelvis with IV contrast. All measurements were obtained according to NASCET criteria. 3-D coronal and sagitt al maps were obtained and submitted for review. A dose lowering technique was used consistent with e principals of GURU. FINDINGS: CTA CHEST: Moderate cardiomegaly without pericardial effusion. Mild coronary artery calcifications. T here is patency of the image great vessels. Mixing artifact is noted within the thoracic arch and rey cending thoracic aorta. No aneurysm, dissection, intramural or mediastinal hematoma. There is mild to moderate atherosclerosis of the thoracic aorta. Descending thoracic aortic tortuosity. Mild dilation of the pulmonary artery suggestive of pulmonary arterial hypertension. No pulmonary emboli identifie d. CT CHEST: Multinodular thyroid which demonstrated with 1.8 cm left-sided thyroid nodule. Nonspecific borderline enlarged subcarinal and hilar lymph nodes. Trace left and small right pleural effusions. N o pneumothorax. Intralobular septal and bronchial wall thickening with intermixed groundglass densiti es. Mild subsegmental bibasilar consolidation. Stable hypodense 1.5 cm solid nodule within the medial segment right middle lobe. Stable 4 mm solid nodule of the basal right lower lobe on image 152. Thin -walled bibasilar cysts. Unremarkable soft tissues. No acute fracture. CTA ABDOMEN AND PELVIS: Mild atherosclerosis. No abdominal aortic aneurysm or dissection. Patency of the celiac, superior mesenteric and inferior mesenteric arteries. The renal arteries are also widely patent. There is a patent accessory left renal artery. The iliac and imaged femoral arteries appear p atent. No aneurysm, dissection, high-grade stenosis or arterial occlusion. No active extravasation. CT ABDOMEN AND PELVIS: There is no pneumatosis or pneumoperitoneum. The unremarkable spleen, pancreas and adrenal glands. Bladder wall thickening with pericholecystic edema. No significant gallbladder d istention. Portal edema is likely secondary to overhydration. The liver is enlarged measuring up to 1 9.4 cm in length. Prominent heterogeneous enhancement of the inferior pole left kidney. No hydronephrosis. Nonspecific urinary bladder wall thickening. No adnexal mass lesions identified. Trace free pelvic fluid. Subcent imeter retroperitoneal lymph nodes. Mild nonspecific distal esophageal wall thickening. No bowel obst ruction. Noninflamed appendix. Unremarkable soft tissues. Degenerative changes of the spine, pelvis a nd hips. IMPRESSION: 1. Unremarkable CTA of the chest, abdomen and pelvis. 2. Cardiomegaly with pulmonary edema, trace left and small right pleural effusions. 3. Mild bibasilar opacities suggest atelectasis. 4. Trace free pelvic fluid is noted along with nonspecific pericholecystic ascites. Findings may be s econdary to the fluid overload however could be evaluated with ultrasound to exclude acute cholecysti tis. 5. Mildly decreased enhancement of the inferior pole left kidney. Correlation with urinalysis recomme nded. 6. Stable 1.5 cm hypodense nodule of the medial segment right middle lobe. 7. Additional findings as above. ACT 112: Negative or not required by law. The above report was generated using voice recognition software. It may contain grammatical, syntax o r spelling errors. Electronically signed by: Dharmesh Estrada M.D. 10/29/2023 10:35 AM
[2023-10-29] MEDS: FUROSEMIDE 40 MG/4 ML VIAL IV ONE (12:10)
--- NOTE | 2023-10-29 12:31 | Ultrasound Report ---
US gallbladder CLINICAL HISTORY: abd pain; pericholecystic fluid on CT TECHNIQUE: Multiple real-time sonographic images of the right upper quadrant were obtained. Comparison: Comparison is made to CT abdomen pelvis 10/29/2023 FINDINGS: The liver is diffusely homogenous with normal contour and echogenicity. No focal mass lesions are see n. No intrahepatic ductal dilatation is seen. No gallstones or sludge are identified within the g allbladder. The gallbladder wall measures 3 mm. There is no pericholecystic fluid present. A sonograp hic Da Silva's sign was not elicited by the predatory animal hunter. The common duct measures 0.4 cm in diameter at the level of the hepatic artery. The visualized portions of the pancreas appear normal. The right kidney shows normal echogenicity, cortical thickness and renal contour. The right kidney sh ows no evidence of hydronephrosis. Parapelvic cysts are seen. Incidental note is made of a right pleural effusion. IMPRESSION: No evidence of acute cholecystitis. Additional findings as above. ACT 112: Negative or not required by law. Electronically signed by: Dameon Bass M.D. 10/29/2023 12:30 PM
[2023-10-29] MEDS ORDERED: MAGNESIUM HYDROXIDE SUSP 30 ML UDC PO PRN (13:03)
[2023-10-29] MEDS ORDERED: ACETAMINOPHEN 325 MG TAB PO PRN (13:03)
--- NOTE | 2023-10-29 13:04 | History & Physical Report ---
Date of Service October 29, 2023 Assessment & Plan (1) Acute exacerbation of CHF (congestive heart failure): Plan 83-year-old lady with PMH of Eliquis/PE, Mnire's disease, hyperlipidemia, hypertension came in with complaint of progressive shortness of breath with activity/steps associated with lower extremity swelling and upper abdominal discomfort for about 10 days [employer]. She is being managed for the following: Likely acute CHF, unspecified type A-fib with RVR Likely demand ischemia Presenting with shortness of breath, lower extremity swelling. BNP elevated at 457. Chest imaging with pulmonary edema Troponin 17.4, likely demand ischemia, trend troponin. Patient denies chest pain. Admitting EKG with A-fib RVR with rate of 133, no prior diagnosis per outpatient chart review and per patient. TSH WNL. Heart rate better controlled by the time of bedside examination. Metoprolol x scheduled p.o., IV as needed, can consider diltiazem drip if persistently elevated heart rate. Fluid restriction of 1500 mL a day, IV Lasix 40 mg daily, cardiology consult, get echo Telemetry monitoring, trend troponins, EKG as needed with chest pain. Abnormal abdominal imaging: Concern of pericholecystic ascites, follow-up US abdomen -- neg for acute cholecystitis. Tums trial. Elevated blood glucose: r/o DM, A1C in AM. Other chronic medical conditions: HLD, HTN---- continue with/resume home meds as and when able. DVT prophylaxis: Patient already on Eliquis DNR/DNI as per my discussion with the patient. History of Present Illness Chief Complaint: progressive shortness of breath x 10 days Primary Care Provider: AUDRA Fong 83-year-old lady with PMH of HLD, Mnire's disease, PE on Eliquis presented to the ED with complaint of shortness of breath for 10 days [employer], exacerbated with activity/steps. Patient does not have history of A-fib RVR or heart failure per patient and per OP chart review. Patient is not on any diuretics at home. She also reports her lower extremity swelling for about the same duration and upper belly discomfort for about the same duration with no radiation. Reports poor appetite/not feeling well, denies acute changes in bowel or bladder habit. Denied chest pain/sore throat/cough/fever. Also denies lower abdominal pain. Denies smoking/alcohol/recreational drug use. DNR/DNI Medications were discussed with the patient in detail. Plan of care were discussed with the patient is detail, she voiced understanding and was agreeable to plan of care. Allergies Allergy/AdvReac Type Severity Reaction Status Date / Time No Known Allergies Allergy Verified 10/29/23 10:07 Home Medications Medication Instructions Recorded Confirmed Type multivitamin 1 tab PO DAILY 02/24/22 10/29/23 History losartan 25 mg tablet 25 mg PO QAM #30 tabs 02/26/22 10/29/23 Rx cholecalciferol (vitamin D3) 125 125 mcg PO DAILY 03/08/22 10/29/23 History mcg (5,000 unit) tablet (Vitamin D3) magnesium oxide 500 mg PO DAILY 03/08/22 10/29/23 History niacin 500 mg tablet 500 mg PO DAILY 03/08/22 10/29/23 History apixaban 5 mg tablet (Eliquis) 5 mg PO BID #60 tabs 03/12/22 10/29/23 Rx Past Med/Surg History Problem List (Updated 10/29/23 @ 12:35 by Phoebe Paredes MD) Elevated brain natriuretic peptide (BNP) level (Acute) Elevated troponin (Acute) Acute exacerbation of CHF (congestive heart failure) (Acute) Atrial flutter with rapid ventricular response (Acute) Acute upper abdominal pain (Acute) Shortness of breath (Acute) GERD (gastroesophageal reflux disease) Bilateral pulmonary embolism (Acute) Chest pain (Acute) Shortness of breath (Acute) Pulmonary edema (Acute) Elevated blood pressure reading Epigastric discomfort Pulmonary embolism Hypoxemia (Acute) Acute dyspnea (Acute) Pulmonary nodule (Acute) Medical History Elevated blood pressure reading Meniere disease Pulmonary edema Surgical History No pertinent past surgical history Family History Brother Stroke Sister Breast cancer Mother Colorectal cancer Social History Smoking Status: Never smoker Hx Alcohol Use: No Hx Substance Use: No Preferred Language: Croatian Communication Ability: Effective [employer] Spanish Teacher Required: No Beliefs That Will Affect Care: None marital status: / Current Living Situation: Alone Feels Safe at Home: Yes Assistive Devices: None Review of Systems Review of Systems: Negative otherwise mentioned in HPI. Physical Exam Physical Exam: GENERAL: Alert and oriented x3. NAD, on RA. HEENT: No pallor, no icterus. Pupils equal, round and reactive to light. Oral mucosa moist. NECK: No JVD, no neck masses. HEART: S1 and S2 heard. Regular rate and rhythm. No murmur, no gallop. RESPIRATORY SYSTEM: Normal AP diameter. No accessory muscle use. No wheezing, bb crackles. ABDOMEN: Soft, bowel sounds present, nontender, no distention. CENTRAL NERVOUS SYSTEM: No facial droop. Speech is clear. Obeys simple commands. Moves extremities. EXTREMITIES: 1+/trace BLE edema, no erythema seen. Results & Data Results & Data Vital Signs (Past 12 Hours) Vital Signs Temp Pulse Pulse Resp BP BP Pulse Ox 10/29/23 12:13 106 H 10/29/23 12:10 107 H 22 165/110 H 95 10/29/23 11:21 100 H 21 97 10/29/23 11:15 111 H 23 97 10/29/23 11:03 103 H 23 97 10/29/23 10:45 93 H 23 96 10/29/23 10:44 95 H 18 130/103 H 96 10/29/23 10:42 99 H 20 96 10/29/23 10:30 133/93 10/29/23 10:30 98 H 24 96 10/29/23 10:12 107 H 20 94 10/29/23 10:09 104 H 24 94 10/29/23 09:21 100 H 13 98 10/29/23 09:15 91 H 14 94 10/29/23 09:15 139/99 10/29/23 09:00 113 H 14 96 10/29/23 09:00 130/97 10/29/23 09:00 95 H 18 130/97 96 10/29/23 08:54 95 H 24 95 10/29/23 08:48 95 H 18 95 10/29/23 08:30 103 H 124/92 10/29/23 08:30 103 H 33 H 95 10/29/23 08:30 124/92 10/29/23 08:21 103 H 19 95 10/29/23 08:07 94 H 10/29/23 07:54 104 H 23 10/29/23 07:45 133/112 H 10/29/23 07:44 112 H 18 141/111 H 96 10/29/23 07:44 96 10/29/23 07:42 10/29/23 07:40 101 H 18 96 10/29/23 07:39 114 H 24 95 10/29/23 07:30 161/116 H 10/29/23 07:30 124 H 25 H 95 10/29/23 07:30 123 H 161/116 H 10/29/23 07:11 36.3 C L 137 H 20 169/109 H 96 O2 Del Method 10/29/23 12:13 10/29/23 12:10 Room Air 10/29/23 11:21 Room Air 10/29/23 11:15 10/29/23 11:03 10/29/23 10:45 10/29/23 10:44 Room Air 10/29/23 10:42 10/29/23 10:30 10/29/23 10:30 10/29/23 10:12 10/29/23 10:09 10/29/23 09:21 10/29/23 09:15 10/29/23 09:15 10/29/23 09:00 10/29/23 09:00 10/29/23 09:00 Room Air 10/29/23 08:54 10/29/23 08:48 10/29/23 08:30 10/29/23 08:30 10/29/23 08:30 10/29/23 08:21 10/29/23 08:07 10/29/23 07:54 10/29/23 07:45 10/29/23 07:44 Room Air 10/29/23 07:44 Room Air 10/29/23 07:42 Room Air 10/29/23 07:40 Room Air 10/29/23 07:39 10/29/23 07:30 10/29/23 07:30 10/29/23 07:30 10/29/23 07:11 Room Air
[2023-10-29] MEDS ORDERED: METOPROLOL TARTRATE 1 MG/ML VIAL IV PRN (13:06)
[2023-10-29 14:19] LABS: Appearance Urine Clear (Clear); Bilirubin Urine Negative (Negative); Blood Urine Negative (Negative); Color Urine Yellow; Glucose Urine UA Negative (Negative); Ketones Urine Negative (Negative); Leukocyte Esterase Urine Negative (Negative); Nitrite Urine Negative (Negative); Protein Urine Negative (Negative); Specific Gravity Urine 1.015 (1.000-1.030); Urobilinogen Urine Negative (Negative); pH Urine 6.5 (4.5-7.5)
[2023-10-29] MEDS: LOSARTAN POTASSIUM 25 MG TAB PO SCH (17:34)
[2023-10-29] MEDS: APIXABAN 5 MG TABLET PO SCH (19:44)
[2023-10-29] MEDS: METOPROLOL TARTRATE 25 MG TAB PO SCH (19:44)
[2023-10-30] MEDS: LORATADINE 10 MG TAB PO ONE (05:57)
[2023-10-30 07:02] LABS: Hematocrit (blood only) 42.9 % (37.0-47.0); Hemoglobin 14.2 g/dl (12.0-16.0); Mean Corpuscular Hgb Conc 33.1 g/dL (32.0-36.0); Mean Corpuscular Volume 93.7 fL (80.0-100.0); Mean Platelet Volume 10.7 fL (9.4-12.4); Platelet Count 171 K/uL (130-400); RDW Coefficient of Variation 14.2 % (11.5-14.5); RDW Standard Deviation 48.2 fL (36.4-46.3); Red Blood Count 4.58 M/uL (4.20-5.40)
[2023-10-30 07:26] LABS: Estimated Average Glucose 137 mg/dl; Hemoglobin A1C 6.4 % (4.5-5.6)
[2023-10-30 07:28] LABS: BUN Creatinine Ratio 30.4 (10-20); Calcium 9.3 mg/dl (8.6-10.3); Creatinine Clr Calc Pharmacy 46.8 ml/min; Est GFR (African American) 79.1 ml/min; Est GFR (Non-African American) 68.3 ml/min; Phosphorus 3.6 mg/dl (2.5-4.9); Potassium 3.8 mmol/L (3.5-5.1)
[2023-10-30 07:35] LABS: Troponin I High Sensitivity 15.4 pg/ml (0-14)
--- NOTE | 2023-10-30 08:31 | Cardiology Consultation ---
Date of Consultation October 30, 2023 Assessment & Plan (1) Atrial fibrillation with RVR: (2) Acute exacerbation of CHF (congestive heart failure): (3) Hypertension: Plan Patient admitted with 3 weeks of worsening SOB, abdominal bloating, edema. Incidentally found to have afib RVR, likely contributing to worsening volume status. Pulm edema on chest xray and Chest CT. No PE on CT SOB and volume status improved with several doses of IV lasix. -2 L since admission with good urine outputs. Weight down about 3 kg. Appears euvolemic this morning. Transition to oral lasix 20 mg daily with low dose potassium. In regards to afib, new onset. She is already on Eliquis for history of pulmonary embolus. Continue anticoagulation with Eliquis 5 mg BID. Rates minimal improved with initiation of low dose metoprolol 12.5 mg daily Increase metoprolol to 25 mg BID and change to metoprolol succinate today. Ongoing rate control strategy likely recommended given lack of symptoms. Will review echo when available. Continue losartan for HTN. Case discussed with Dr. Harding I spent a total of 55 minutes on the date of service in preparation, delivery, and documentation of the care provided to this patient, excluding any time spent in the performance of separately billed services. Leslie Stoner PA-C Department of Cardiology, [facility] This chart was completed in part utilizing Speech Voice Recognition Software. Grammatical errors, random word insertions, pronoun errors, and incomplete sentences are an occasional consequence of this system due to software limitations, ambient noise, and hardware issues. Any formal questions or concerns about the content, text, or information contained within the body of this dictation should be directly addressed to the provider for clarification. Supervising Physician Co-Signing Physician Notes I have personally performed a history and physical examination on the patient. I have reviewed the advance practitioner's documentation, and I agree with, and take responsibility for the plan of care. 83-year-old female present to the emergency department with shortness of breath. 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 Diagnosed with atrial fibrillation and rapid ventricular response as well as acute decompensated heart failure on admission. Treated with beta-cristy therapy and IV diuresis. Clinically improved overnight, however, heart rate remains elevated, proximal 110 bpm in atrial fibrillation. Seen and examined at the bedside. Reports symptoms including dyspnea and exercise intolerance for approximately 3 weeks. Denies any palpitations, lightheadedness, or dizziness. No chest discomfort or heaviness. Minimally elevated high-sensitivity troponin on admission. ECG with lateral T wave inversions. 2D transthoracic echocardiogram demonstrates mild LV systolic dysfunction, LVEF 40-44%, moderate RV enlargement, moderate biatrial enlargement, with moderate mitral and tricuspid regurgitation. Recommend rate control strategy, diuresis, and continued anticoagulation with Eliquis. Discontinue low-dose metoprolol succinate in favor of metoprolol tartrate 25 mg 3 times daily. Continue Eliquis as ordered. Lasix 20 mg daily with potassium supplementation. Monitor fluid balance, daily weight, GFR, and electrolytes. Consider transition losartan to Entresto and addition of spironolactone during hospitalization. I spent a total of 30 minutes on the date of service in preparation, delivery, and documentation of the care provided to this patient, excluding any time spent in the performance of separately billed services. History of Present Illness Reason for Consultation: SOB/CHF; Afib new onset Requesting Physician: Dr. Gonzalez Attending Physician: Dr. Harding History of Present Illness Patient is an 83 year old female admitted to [facility] with complaints of worsening SOB x3 weeks with abdominal bloating, LE edema. On arrival to the ER, patient found to have afib RVR on EKG. No known history of atrial fibrillation. Chest xray consistent with mild pulm edema. Started on low dose metoprolol tartrate for rate control. Eliquis continued (home dose) started on IV lasix. HS troponin minimally elevated, consistent with demand ischemia in setting of afib RVR. Echo ordered and pending. History includes: 1. Hypertension 2. History of PE, diagnosed in 2021. Chronic Eliquis for anticoagulation Patient denies prior history of cardiovascular issues. No prior MT/CAD, CHF, arrhythmias, or valvular disease. Prior echo in 02/2022 at time of PE with normal LVEF. RV moderately dilated. At time of consult, patient resting in bed. Feeling well. Reports her SOB/abdominal bloating and edema have improved since admission. Back to baseline. She is asymptomatic in regards to afib. Denies symptoms of palpitations or tachypalpitations. No chest pain. Allergies Allergy/AdvReac Type Severity Reaction Status Date / Time No Known Allergies Allergy Verified 10/29/23 10:07 Home Medications Medication Instructions Recorded Confirmed Type multivitamin 1 tab PO DAILY 02/24/22 10/29/23 History losartan 25 mg tablet 25 mg PO QAM #30 tabs 02/26/22 10/29/23 Rx cholecalciferol (vitamin D3) 125 125 mcg PO DAILY 03/08/22 10/29/23 History mcg (5,000 unit) tablet (Vitamin D3) magnesium oxide 500 mg PO DAILY 03/08/22 10/29/23 History niacin 500 mg tablet 500 mg PO DAILY 03/08/22 10/29/23 History apixaban 5 mg tablet (Eliquis) 5 mg PO BID #60 tabs 03/12/22 10/29/23 Rx Patient History Medical History Meniere disease Surgical History No pertinent past surgical history Family History Brother Stroke Sister Breast cancer Mother Colorectal cancer Social History Smoking Status: Never smoker Second Hand Exposure: No; Do You Dip or Chew Tobacco: No; Tobacco Cessation Education Requested by Patient: No Hx Alcohol Use: Yes Alcohol type: beer Hx Substance Use: No Preferred Language: Omani Communication Ability: Effective Ag Service Manager Required: No Beliefs That Will Affect Care: None marital status: / Current Living Situation: Alone Other Information That Helps Us Care for You: No Feels Safe at Home: Yes Safety Concerns: Feels Safe At This Time Assistive Devices: None Review of Systems Review of Systems: All systems reviewed & are unremarkable except as noted in HPI & below Physical Exam Constitutional: WD/WN, vitals as above well nourished; no acute distress Neck: trachea midline, no thyromegaly Respiratory: normal respiratory effort Auscultation: lungs clear to auscultation bilaterally; no crackles, no rales and no wheezes Cardiovascular: Rate/Rhythm: + tachycardic and + irregularly irregular Heart Sounds: normal S1 and normal S2; no murmur Vessels: no JVD Extremities: no edema Gastrointestinal (Abdomen): normal bowel sounds, soft, nontender, no hepatosplenomegaly Neurologic: PERRL, EOMI, accommodation nl, no face palsy, no dysarthria Psychiatric: A+Ox3, euthymic affect Results & Data Vital Signs (Past 12 Hours) Vital Signs Temp Pulse Pulse Resp BP Pulse Ox O2 Del Method 10/30/23 07:54 36.3 C L 106 H 20 140/78 94 Room Air 10/30/23 02:58 36.4 C L 98 H 18 141/96 H 91 Room Air 10/29/23 23:16 36.8 C 103 H 18 137/89 94 Room Air 10/29/23 22:38 99 H Laboratory Results Cardiac Enzymes 10/29/23 10/29/23 10/30/23 Range/Units 14:37 20:09 06:41 Troponin I High Sens 17.4 H 18.4 H 15.4 H (0-14) pg/ml CBC 10/30/23 Range/Units 06:41 WBC 8.00 (4.8-10.8) K/ul RBC 4.58 (4.20-5.40) M/uL Hgb 14.2 (12.0-16.0) g/dl Hct 42.9 (37.0-47.0) % Plt Count 171 (130-400) K/uL Comprehensive Metabolic Panel 10/30/23 Range/Units 06:41 Sodium 140 (136-145) mmol/L Potassium 3.8 (3.5-5.1) mmol/L Chloride 105 (98-107) mmol/L Carbon Dioxide 28 (21-32) mmol/L BUN 24 H (6-23) mg/dl Creatinine 0.79 (0.6-1.2) mg/dl Glucose 108 H (70-99(Fasting)) mg/dl Calcium 9.3 (8.6-10.3) mg/dl Intake and Output 10/29/23 10/30/23 10/30/23 22:59 06:59 14:59 Intake Total 50 / 150 Output Total 1100 / 2150 150 / 2150 Balance -1049 - Intake: Oral 50 / 50 Output: Urine 1100 / 2150 150 / 2150 Other: Weight 68 kg Weight Measurement Method Built in [facility] Diagnostic Findings Telemetry reviewed: Atrial fibrillation with elevated ventricular rates ranging 100-120's. Echocardiogram results - pending EKG dated 10/29/23: Atrial fibrillation with RVR in the 130's Poor R wave progression Artifact noted EKG reviewed from 10/30/23: Atrial fibrillation with elevated rates around 110 Low voltage QRS T wave inversion in lateral leads Chest xray reviewed from admission: IMPRESSION: 1. Cardiomegaly with suggestion of mild pulmonary edema. 2. Mild bibasilar opacities may represent atelectasis versus pneumonitis. Chest CTA report reviewed dated 10/29/23: IMPRESSION: 1. Unremarkable CTA of the chest, abdomen and pelvis. 2. Cardiomegaly with pulmonary edema, trace left and small right pleural eff usions. 3. Mild bibasilar opacities suggest atelectasis. 4. Trace free pelvic fluid is noted along with nonspecific pericholecystic ascites. Findings may be secondary to the fluid overload however could be evaluated with ultrasound to exclude acute cholecystitis. 5. Mildly decreased enhancement of the inferior pole left kidney. Correlation with urinalysis recommended. 6. Stable 1.5 cm hypodense nodule of the medial segment right middle lobe. 7. Additional findings as above. Prior data: Echo report reviewed from Feb 2022: LV is normal in size and function LVEF 60-65% RV is moderately dilated LA size is normal. MIld AI Mild MR Moderate MR Moderate pulm hypertension with est pulm pressure of 45 mmHg Medications Administered Current Inpatient Medications Acetaminophen (Acetaminophen 325 Mg Tab) 650 mg PO Q4H PRN PRN Reason: Pain or Fever Stop: 11/28/23 13:02 Al Hydrox/Mg Hydrox/Simethicone (Aluminum/Magnesium Susp 30 Ml Udc) 15 ml PO Q4H PRN PRN Reason: Dyspepsia Stop: 11/28/23 13:02 Apixaban (Apixaban 5 Mg Tablet) 5 mg PO BID NATI Stop: 11/28/23 20:59 Last Admin: 10/30/23 09:01 Dose: 5 mg Calcium Carbonate (Calcium Carbonate 500 Mg Chewable Tab) 1,000 mg PO TID PRN PRN Reason: Indigestion Stop: 11/28/23 13:09 Furosemide (Furosemide 20 Mg Tab) 20 mg PO QAM NATI Stop: 11/29/23 10:44 Losartan Potassium (Losartan Potassium 25 Mg Tab) 25 mg PO QAM NATI Stop: 11/28/23 15:53 Last Admin: 10/30/23 09:02 Dose: 25 mg Magnesium Hydroxide (Magnesium Hydroxide Susp 30 Ml Udc) 30 ml PO Q12H PRN PRN Reason: Constipation Stop: 11/28/23 13:02 Magnesium Oxide (Magnesium Oxide 400 Mg Tab) 400 mg PO DAILY NATI Stop: 11/29/23 08:59 Last Admin: 10/30/23 09:02 Dose: 400 mg Metoprolol Succinate (Metoprolol Succ 25mg Ext Rel Tab) 25 mg PO BID NATI Stop: 11/29/23 20:59 Metoprolol Tartrate (Metoprolol Tartrate 1 Mg/Ml Vial) 5 mg IV Q5M PRN PRN Reason: Tachycardia Stop: 11/28/23 13:05 Multivitamins (Multivitamin Tab) 1 tab PO DAILY NATI Stop: 11/29/23 08:59 Last Admin: 10/30/23 09:02 Dose: 1 tab Potassium Chloride (Potassium Chloride 10 Meq Tabcr) 10 meq PO DAILY NATI Stop: 11/29/23 10:44 Vitamin D (Cholecalciferol 125 Mcg (5,000 Units) Tab) 125 mcg PO DAILY NATI Stop: 11/29/23 08:59 Last Admin: 10/30/23 09:02 Dose: 125 mcg (2) Acute exacerbation of CHF (congestive heart failure) Heart failure type: unspecified Qualified Code(s): I50.9 - Heart failure, unspecified
[2023-10-30] MEDS: CHOLECALCIFEROL 125 MCG (5,000 UNITS) TAB PO SCH (09:02)
[2023-10-30] MEDS: MULTIVITAMIN TAB PO SCH (09:02)
[2023-10-30] MEDS: MAGNESIUM OXIDE 400 MG TAB PO SCH (09:02)
[2023-10-30] MEDS: FUROSEMIDE 40 MG/4 ML VIAL IV SCH (10:37)
[2023-10-30] MEDS: POTASSIUM CHLORIDE 10 MEQ TABCR PO SCH (11:18)
[2023-10-30] MEDS: FUROSEMIDE 20 MG TAB PO SCH (11:18)
[2023-10-30] MEDS: METOPROLOL TARTRATE 25 MG TAB PO ONE (11:18)
--- NOTE | 2023-10-30 15:01 | Hospitalist Progress Note ---
Date of Service October 30, 2023 Assessment & Plan (1) Acute exacerbation of CHF (congestive heart failure): Plan Pt is an 83yoF with PMHx significant for PE on Eliquis, Mnire's disease, hyperlipidemia, hypertension who presented with SOB and lower extremity edema for about 10 days [employer]. She is being managed for the following: Likely acute CHF, unspecified type New onset A-fib with RVR Likely demand ischemia Presenting with shortness of breath, lower extremity swelling. BNP elevated at 457. Chest imaging with pulmonary edema Troponin 17.4, peaked and downtrended, likely demand ischemia. Patient denies chest pain. Admitting EKG with A-fib RVR with rate of 133, no prior diagnosis per outpatient chart review and per patient. Echo with EF of 40-45%, moderately reduced RV systolic function, RV moderately dilated, moderate biatrial enlargement TSH WNL Cardiology consulted, appreciate recs -continue with po metoprolol tartrate 25mg TID at this time for rate control -continue home Eliquis 5mg BID -po Lasix 20 mg daily with potassium supplementation -Consider transition losartan to Entresto and addition of spironolactone during hospitalization Telemetry monitoring Hx of PE Continue home eliquis as above Prediabetes Hgba1c of 6.4 Close pcp followup Other chronic medical conditions: HLD, HTN---- continue with/resume home meds as and when able. Diet: HH/Low sodium/FR DVT prophylaxis: on Eliquis Dispo: PT/OT ordered for further recs Admission and Anticipated Discharge Date Admission Date: October 29, 2023 Subjective pt was seen resting comfortably. Denied SOB, chest pain. States that the lower extremity edema had improved. Review of Systems Review of Systems: All systems reviewed & are unremarkable except as noted in Subjective Physical Exam Physical Exam: General: Alert, oriented. No acute distress Skin: No noted rashes or bruises Psych: Appropriate mood and affect Neuro: No gross deficits while laying in bed HEENT: NC/AT CV: Irregular rate and rhythm Resp: Breath sounds clear bilaterally, no increased effort of breathing. Abdomen: Soft, nontender, nondistended. Extremities: edema in lower extremities bilaterally. Results & Data Results & Data Vital Signs (Past 12 Hours) Vital Signs Temp Pulse Pulse Resp BP Pulse Ox O2 Del Method 10/30/23 11:15 36.3 C L 111 H 18 122/81 97 Room Air 10/30/23 09:01 105 H 10/30/23 07:54 36.3 C L 106 H 20 140/78 94 Room Air (1) Acute exacerbation of CHF (congestive heart failure) Heart failure type: unspecified Qualified Code(s): I50.9 - Heart failure, unspecified
--- NOTE | 2023-10-30 17:41 | Electrocardiogram Report ---
Test Reason : Blood Pressure : / mmHG Vent. Rate : 111 BPM Atrial Rate : 110 BPM P-R Int : 000 ms QRS Dur : 080 ms QT Int : 350 ms P-R-T Axes : 000 009 227 degrees QTc Int : 476 ms Atrial fibrillation with rapid ventricular response Low voltage QRS Nonspecific ST abnormality Abnormal ECG When compared with ECG of 29-OCT-2023 07:20, Non-specific change in ST segment in Lateral leads Nonspecific T wave abnormality, worse in Inferior leads Nonspecific T wave abnormality, worse in Anterolateral leads Confirmed by Toby Shields ([id number]) on 10/30/2023 5:41:41 PM Referred By: REFERRED SELF Confirmed By:Esteban Shields
[2023-10-30] MEDS: METOPROLOL TARTRATE 25 MG TAB PO SCH (20:11)
[2023-10-30] MEDS ORDERED: METOPROLOL SUCC 25MG EXT REL TAB PO SCH (21:00)
[2023-10-30] MEDS: POTASSIUM CHLORIDE CRTAB 20 MEQ TABCR PO STA (23:17)
[2023-10-30] MEDS: PROMETHAZINE HCL 6.25 MG in SODIUM CHLORIDE 0.9% 50 ML IV PRN (23:17)
[2023-10-30] MEDS: ALBUMIN 25% 12.5 GM/50 ML VIAL IV ONE (23:20)
[2023-10-31] MEDS: ALUMINUM/MAGNESIUM SUSP 30 ML UDC PO PRN (02:19)
--- NOTE | 2023-10-31 02:50 | Communication Note ---
Date of Service: October 31, 2023 Patient with epigastric discomfort reminiscent of esophageal/GERD issues as per RN. Patient off PPI for a few years now as per RN. AP GERD Resume PPI
[2023-10-31 03:11] LABS: Basophils # (auto) 0.06 K/uL (0.00-0.20); Basophils % (auto) 0.6 %; Eosinophils # (auto) 0.07 K/uL (0.00-0.50); Eosinophils % (auto) 0.8 %; Hematocrit (blood only) 42.1 % (37.0-47.0); Hemoglobin 13.9 g/dl (12.0-16.0); Immature Granulocytes # (auto) 0.02 K/uL (0.01-0.20); Immature Granulocytes % (auto) 0.2 %; Lymphocytes # (auto) 1.91 K/uL (1.20-3.40); Lymphocytes % (auto) 20.6 %; Mean Corpuscular Volume 93.8 fL (80.0-100.0); Mean Platelet Volume 11.5 fL (9.4-12.4); Monocytes # (auto) 0.58 K/uL (0.11-0.59); Monocytes % (auto) 6.3 %; Neutrophils # (auto) 6.62 K/uL (1.40-6.50); Neutrophils % (auto) 71.5 %; Platelet Count 163 K/uL (130-400); RDW Coefficient of Variation 14.2 % (11.5-14.5); RDW Standard Deviation 48.6 fL (36.4-46.3); Red Blood Count 4.49 M/uL (4.20-5.40); White Blood Count 9.26 K/ul (4.8-10.8)
[2023-10-31] MEDS: PANTOprazole 40 MG TAB PO SCH (03:22)
[2023-10-31 03:28] LABS: Albumin Globulin Ratio 1.1 (0.9-2); BUN Creatinine Ratio 33.7 (10-20); Bilirubin,Total 1.2 mg/dl (0.2-1.0); Calcium 9.5 mg/dl (8.6-10.3); Creatinine Clr Calc Pharmacy 37.8 ml/min; Est GFR (Non-African American) 52.6 ml/min; Globulin 3.7 gm/dl (2.5-4.0); Magnesium 2.1 mg/dl (1.7-2.4); Phosphorus 3.4 mg/dl (2.5-4.9); Potassium 4.6 mmol/L (3.5-5.1); Total Protein 7.7 gm/dl (6.0-8.3); Troponin I High Sensitivity 16.1 pg/ml (0-14)
[2023-10-31] MEDS ORDERED: traMADol HCL 50 MG TABLET PO PRN (03:31)
[2023-10-31] MEDS: ACETAMINOPHEN 325 MG TAB PO STA (03:36)
[2023-10-31 03:38] LABS: Partial Thromboplastin Time 28 Seconds (21-31)
--- NOTE | 2023-10-31 12:04 | Cardiology Progress Note ---
Date of Service October 31, 2023 Assessment & Plan (1) Atrial fibrillation with RVR: (2) Acute exacerbation of CHF (congestive heart failure): (3) Hypertension: Plan Patient admitted with 3 weeks of worsening SOB, abdominal bloating, edema. Incidentally found to have afib RVR, likely contributing to worsening volume status. Pulm edema on chest xray and Chest CT. No PE on CT SOB and volume status improved with several doses of IV lasix. -2 L since admission with good urine outputs. Weight down about 3 kg. Appears euvolemic this morning. Transition to oral lasix 20 mg daily with low dose potassium. In regards to afib, new onset. She is already on Eliquis for history of pulmonary embolus. Continue anticoagulation with Eliquis 5 mg BID. Rates minimal improved with initiation of low dose metoprolol 12.5 mg daily Increase metoprolol to 25 mg BID and change to metoprolol succinate today. Ongoing rate control strategy likely recommended given lack of symptoms. Will review echo when available. Continue losartan for HTN. 10/31/23: Echo yesterday revealing mildly reduced LVEF at 40-45%, global hypokinesis. Reduced EF possibly due to afib RVR. Afib rates trending down but remain borderline elevated. Plan to increase metoprolol to 50 mg TID Continue Eliquis for anticoagulation. Tolerating oral Lasix/potassium. Renal function stable. Appears euvolemic. Consider starting Entresto in place of losartan tomorrow. Case discussed with Dr. Harding I spent a total of 30 minutes on the date of service in preparation, delivery, and documentation of the care provided to this patient, excluding any time spent in the performance of separately billed services. Leslie Stoner PA-C Department of Cardiology, [facility] [address] This chart was completed in part utilizing Speech Voice Recognition Software. Grammatical errors, random word insertions, pronoun errors, and incomplete sentences are an occasional consequence of this system due to software limitations, ambient noise, and hardware issues. Any formal questions or concerns about the content, text, or information contained within the body of this dictation should be directly addressed to the provider for clarification. Admission and Anticipated Discharge Date Admission Date: October 29, 2023 Supervising Physician Co-Signing Physician Notes I have personally performed a history and physical examination on the patient. I have reviewed the advance practitioner's documentation, and I agree with, and take responsibility for the plan of care. 83-year-old female present to the emergency department with shortness of breath. 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 Diagnosed with atrial fibrillation and rapid ventricular response as well as acute decompensated heart failure on admission. Echocardiogram demonstrating mildly reduced LV systolic function, moderate right ventricular enlargement, moderate biatrial enlargement with moderate mitral and tricuspid regurgitation. Heart rate remains elevated on telemetry. Volume status improved. Rate control strategy recommended. Titrate metoprolol to 50 mg 3 times daily. Continue Eliquis a 5 mg twice daily. Continue furosemide 20 mg daily and losartan as ordered. Consider transition losartan to Entresto and addition of spironolactone during hospitalization. I spent a total of 25 minutes on the date of service in preparation, delivery, and documentation of the care provided to this patient, excluding any time spent in the performance of separately billed services. Subjective Patient resting in bed. Did not sleep well. Feels "tired" and notes intermittent palpitations. No CP or SOB reported. No orthopnea, PND or edema. HR's variable on telemetry ranging 90-120's Review of Systems Review of Systems: All systems reviewed & are unremarkable except as noted in HPI & below Physical Exam Constitutional: WD/WN, vitals as above well nourished; no acute distress Neck: trachea midline, no thyromegaly Respiratory: normal respiratory effort Auscultation: lungs clear to auscultation bilaterally; no crackles, no rales and no wheezes Cardiovascular: Rate/Rhythm: + tachycardic and + irregularly irregular Heart Sounds: normal S1 and normal S2; no murmur Vessels: no JVD Extremities: no edema Gastrointestinal (Abdomen): normal bowel sounds, soft, nontender, no hepatosplenomegaly Neurologic: PERRL, EOMI, accommodation nl, no face palsy, no dysarthria Psychiatric: A+Ox3, euthymic affect Results & Data Vital Signs (Past 12 Hours) Vital Signs Temp Pulse Pulse Resp BP Pulse Ox O2 Del Method 10/31/23 08:14 36.0 C L 100 H 16 133/87 97 Room Air 10/31/23 07:45 98 H 10/31/23 02:53 36.5 C 91 H 18 133/93 94 Room Air Laboratory Results Cardiac Enzymes 10/31/23 10/31/23 Range/Units 02:38 05:18 AST 36 (13-39) U/L Troponin I High Sens 16.1 H 15.9 H (0-14) pg/ml Coagulation 10/31/23 Range/Units 02:43 APTT 28 (21-31) Seconds CBC 10/31/23 Range/Units 02:38 WBC 9.26 (4.8-10.8) K/ul RBC 4.49 (4.20-5.40) M/uL Hgb 13.9 (12.0-16.0) g/dl Hct 42.1 (37.0-47.0) % Plt Count 163 (130-400) K/uL Neut # (Auto) 6.62 H (1.40-6.50) K/uL Lymph # (Auto) 1.91 (1.20-3.40) K/uL [place] # (Auto) 0.58 (0.11-0.59) K/uL Eos # (Auto) 0.07 (0.00-0.50) K/uL Baso # (Auto) 0.06 (0.00-0.20) K/uL Comprehensive Metabolic Panel 10/31/23 Range/Units 02:38 Sodium 140 (136-145) mmol/L Potassium 4.6 D (3.5-5.1) mmol/L Chloride 106 (98-107) mmol/L Carbon Dioxide 26 (21-32) mmol/L BUN 33 H (6-23) mg/dl Creatinine 0.98 (0.6-1.2) mg/dl Glucose 151 H (70-99(Fasting)) mg/dl Calcium 9.5 (8.6-10.3) mg/dl AST 36 (13-39) U/L ALT 39 (7-52) U/L Alkaline Phosphatase 72 (34-104) U/L Total Protein 7.7 (6.0-8.3) gm/dl Albumin 4.0 (3.4-5.0) gm/dl Intake and Output 10/30/23 10/31/23 10/31/23 22:59 06:59 14:59 Intake Total 120 / 610.25 250.25 / 610.25 Output Total 350 / 350 Balance -230 / 260.25 250.25 / 260.25 Intake: IV 100.25 / 100.25 Albumin 25% 12.5 gm In 50 ml @ 50 / 50 50 mls/hr IV ONE ONE Rx#: [id number] Promethazine HCl 6.25 mg In 50.25 / 50.25 Sodium Chloride 0.9% 50 ml @ 201 mls/hr IV Q6H PRN Rx#: [id number] Oral 120 / 510 150 / 510 Output: Urine 350 / 350 Other: Weight 68.1 kg Diagnostic Findings Telemetry reviewed: Afib with borderline elevated rates ranging 90-120's EKG reviewed from 10/31/23: Afib at 95 bmp Low voltage QRS Echo report reviewed dated 10/30/23: Afib with RVR during study LV systolic function is mildly reduced at 40-45% Global hypokinesis RV function is moderately reduced with moderate dilatation. Moderate MR. Moderate TR Estimated pulm pressure is 37 mmHg Medications Administered Current Inpatient Medications Acetaminophen (Acetaminophen 325 Mg Tab) 650 mg PO Q4H PRN PRN Reason: Pain or Fever Stop: 11/28/23 13:02 Al Hydrox/Mg Hydrox/Simethicone (Aluminum/Magnesium Susp 30 Ml Udc) 15 ml PO Q4H PRN PRN Reason: Dyspepsia Stop: 11/28/23 13:02 Last Admin: 10/31/23 02:19 Dose: 15 ml Apixaban (Apixaban 5 Mg Tablet) 5 mg PO BID [facility] Stop: 11/28/23 20:59 Last Admin: 10/31/23 08:02 Dose: 5 mg Calcium Carbonate (Calcium Carbonate 500 Mg Chewable Tab) 1,000 mg PO TID PRN PRN Reason: Indigestion Stop: 11/28/23 13:09 Furosemide (Furosemide 20 Mg Tab) 20 mg PO QAM [facility] Stop: 11/29/23 10:44 Last Admin: 10/31/23 08:03 Dose: 20 mg Promethazine HCl 6.25 mg/ (Sodium Chloride) 50.25 mls @ 201 mls/hr IV Q6H PRN PRN Reason: Nausea And Vomiting Stop: 11/29/23 22:40 Last Infusion: 10/30/23 23:39 Dose: Infused Losartan Potassium (Losartan Potassium 25 Mg Tab) 25 mg PO QAM [facility] Stop: 11/28/23 15:53 Last Admin: 10/31/23 08:02 Dose: 25 mg Magnesium Hydroxide (Magnesium Hydroxide Susp 30 Ml Udc) 30 ml PO Q12H PRN PRN Reason: Constipation Stop: 11/28/23 13:02 Magnesium Oxide (Magnesium Oxide 400 Mg Tab) 400 mg PO DAILY NATI Stop: 11/29/23 08:59 Last Admin: 10/31/23 08:02 Dose: 400 mg Metoprolol Tartrate (Metoprolol Tartrate 1 Mg/Ml Vial) 5 mg IV Q5M PRN PRN Reason: Tachycardia Stop: 11/28/23 13:05 Metoprolol Tartrate (Metoprolol Tartrate 25 Mg Tab) 25 mg PO TID NATI Stop: 11/29/23 20:59 Last Admin: 10/31/23 08:02 Dose: 25 mg Multivitamins (Multivitamin Tab) 1 tab PO DAILY NATI Stop: 11/29/23 08:59 Last Admin: 10/31/23 08:02 Dose: 1 tab Pantoprazole Sodium (Pantoprazole 40 Mg Tab) 40 mg PO QAM NATI Stop: 11/30/23 02:54 Last Admin: 10/31/23 03:22 Dose: 40 mg Potassium Chloride (Potassium Chloride 10 Meq Tabcr) 10 meq PO DAILY NATI Stop: 11/29/23 10:44 Last Admin: 10/31/23 09:43 Dose: 10 meq Tramadol HCl (Tramadol Hcl 50 Mg Tablet) 25 mg PO Q4H PRN PRN Reason: Pain Stop: 11/30/23 03:30 Vitamin D (Cholecalciferol 125 Mcg (5,000 Units) Tab) 125 mcg PO DAILY NATI Stop: 11/29/23 08:59 Last Admin: 10/31/23 08:03 Dose: 125 mcg (2) Acute exacerbation of CHF (congestive heart failure) Heart failure type: systolic Qualified Code(s): I50.23 - Acute on chronic systolic (congestive) heart failure
--- NOTE | 2023-10-31 12:31 | Hospitalist Progress Note ---
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 She is being managed for the following: Acute systolic (congestive) heart failure New onset A-fib with RVR Likely demand ischemia Presenting with shortness of breath, lower extremity swelling. BNP elevated at 457. Chest imaging with pulmonary edema Troponin 17.4, peaked and downtrended, likely demand ischemia. Patient denies chest pain. Admitting EKG with A-fib RVR with rate of 133, no prior diagnosis per outpatient chart review and per patient. Echo with EF of 40-45%, moderately reduced RV systolic function, RV moderately dilated, moderate biatrial enlargement TSH WNL Cardiology consulted, appreciate recs -po metoprolol tartrate 50mg TID at this time for rate control -continue home Eliquis 5mg BID -po Lasix 20 mg daily with potassium supplementation Kcl 10 mEq daily -Consider transition of losartan to Entresto and addition of spironolactone during hospitalization Telemetry monitoring Hx of PE Continue home eliquis as above Prediabetes Hgba1c of 6.4 Close pcp followup GERD Started on ppi, pantoprazole 40mg daily Other chronic medical conditions: HLD, HTN---- continue with/resume home meds as and when able. Diet: HH/Low sodium/FR DVT prophylaxis: on Eliquis Dispo: PT/OT ordered for further recs Admission and Anticipated Discharge Date Admission Date: October 29, 2023 Subjective pt was seen sitting at the side of the bed. Was about to go for a walk. States she has epigastric pain that she gets later in the night. Pain relieved by ppi given overnight. Denies SOB, chest pain or palpitations sensation Review of Systems Review of Systems: All systems reviewed & are unremarkable except as noted in Subjective Physical Exam Physical Exam: General: Alert, oriented. No acute distress Skin: No noted rashes or bruises Psych: Appropriate mood and affect Neuro: No gross deficits HEENT: NC/AT CV: Irregular rate and rhythm Resp: Breath sounds clear bilaterally, no increased effort of breathing. Abdomen: Soft, nontender even in the epigastrium Extremities: edema in lower extremities bilaterally. Results & Data Results & Data Vital Signs (Past 12 Hours) Vital Signs Temp Pulse Pulse Resp BP BP Pulse Ox 10/31/23 12:03 37.2 C 100 H 18 123/82 97 10/31/23 08:14 36.0 C L 100 H 16 133/87 97 10/31/23 07:45 98 H 10/31/23 02:53 36.5 C 91 H 18 133/93 94 O2 Del Method 10/31/23 12:03 Room Air 10/31/23 08:14 Room Air 10/31/23 07:45 10/31/23 02:53 Room Air (1) Acute exacerbation of CHF (congestive heart failure) Heart failure type: systolic Qualified Code(s): I50.23 - Acute on chronic systolic (congestive) heart failure
[2023-10-31] MEDS: METOPROLOL TARTRATE 50 MG TAB PO SCH (13:16)
--- NOTE | 2023-10-31 17:13 | Electrocardiogram Report ---
Test Reason : Blood Pressure : / mmHG Vent. Rate : 108 BPM Atrial Rate : 127 BPM P-R Int : 000 ms QRS Dur : 080 ms QT Int : 296 ms P-R-T Axes : 000 -08 159 degrees QTc Int : 396 ms Atrial fibrillation with rapid ventricular response Poor R wave progression, consider anterior TX vs. lead placement vs. LVH Abnormal ECG When compared with ECG of 30-OCT-2023 05:41, No significant change was found Confirmed by Toby Shields ([id number]) on 10/31/2023 5:13:15 PM Referred By: REFERRED SELF Confirmed By:Esteban Shields
--- NOTE | 2023-10-31 17:14 | Electrocardiogram Report ---
Test Reason : Blood Pressure : / mmHG Vent. Rate : 095 BPM Atrial Rate : 220 BPM P-R Int : 000 ms QRS Dur : 082 ms QT Int : 344 ms P-R-T Axes : 000 003 169 degrees QTc Int : 432 ms Atrial fibrillation Low voltage QRS Nonspecific ST abnormality Abnormal ECG When compared with ECG of 31-OCT-2023 02:35, (unconfirmed) No significant change was found Confirmed by Toby Shields ([id number]) on 10/31/2023 5:14:09 PM Referred By: REFERRED SELF Confirmed By:Esteban Shields
[2023-11-01] MEDS: CALCIUM CARBONATE 500 MG CHEWABLE TAB PO PRN (03:54)
[2023-11-01 06:43] LABS: Hematocrit (blood only) 44.1 % (37.0-47.0); Hemoglobin 14.6 g/dl (12.0-16.0); Mean Corpuscular Hemoglobin 31.3 pg (25.0-34.0); Mean Corpuscular Hgb Conc 33.1 g/dL (32.0-36.0); Mean Corpuscular Volume 94.4 fL (80.0-100.0); Mean Platelet Volume 11.5 fL (9.4-12.4); Platelet Count 178 K/uL (130-400); RDW Coefficient of Variation 14.3 % (11.5-14.5); RDW Standard Deviation 48.9 fL (36.4-46.3); Red Blood Count 4.67 M/uL (4.20-5.40); White Blood Count 9.04 K/ul (4.8-10.8)
[2023-11-01 07:04] LABS: Albumin Level 3.9 gm/dl (3.4-5.0); Bilirubin,Total 1.2 mg/dl (0.2-1.0); Calcium 9.9 mg/dl (8.6-10.3); Creatinine Clr Calc Pharmacy 38.2 ml/min; Est GFR (African American) 61.7 ml/min; Est GFR (Non-African American) 53.3 ml/min; Globulin 3.9 gm/dl (2.5-4.0); Phosphorus 3.7 mg/dl (2.5-4.9); Potassium 4.9 mmol/L (3.5-5.1); Total Protein 7.8 gm/dl (6.0-8.3)
[2023-11-01 08:05] LABS: Magnesium 2.1 mg/dl (1.7-2.4)
--- NOTE | 2023-11-01 08:36 | Cardiology Progress Note ---
Date of Service November 01, 2023 Assessment & Plan (1) Atrial fibrillation with RVR: (2) Acute exacerbation of CHF (congestive heart failure): (3) Hypertension: Plan Patient admitted with 3 weeks of worsening SOB, abdominal bloating, edema. Incidentally found to have afib RVR, likely contributing to worsening volume status. Pulm edema on chest xray and Chest CT. No PE on CT SOB and volume status improved with several doses of IV lasix. -2 L since admission with good urine outputs. Weight down about 3 kg. Appears euvolemic this morning. Transition to oral lasix 20 mg daily with low dose potassium. In regards to afib, new onset. She is already on Eliquis for history of pulmonary embolus. Continue anticoagulation with Eliquis 5 mg BID. Rates minimal improved with initiation of low dose metoprolol 12.5 mg daily Increase metoprolol to 25 mg BID and change to metoprolol succinate today. Ongoing rate control strategy likely recommended given lack of symptoms. Will review echo when available. Continue losartan for HTN. 10/31/23: Echo yesterday revealing mildly reduced LVEF at 40-45%, global hypokinesis. Reduced EF possibly due to afib RVR. Afib rates trending down but remain borderline elevated. Plan to increase metoprolol to 50 mg TID Continue Eliquis for anticoagulation. Tolerating oral Lasix/potassium. Renal function stable. Appears euvolemic. Consider starting Entresto in place of losartan 11/01/23: Volume status improved since admission. Continue furosemide. Potassium 4.9 this morning. Will discontinue potassium supplement. Possibly causing nausea BP improved. Afib, rates trending downward. Transition to metoprolol succinate 100 BID given reduced LVEF. Continue Eliquis. Continue losartan. Plan to transition to Entresto as outpatient. Will need to check cost prior to initiation. Case discussed with Dr. Chevy Lopez spent a total of 30 minutes on the date of service in preparation, delivery, and documentation of the care provided to this patient, excluding any time spent in the performance of separately billed services. Leslie Stoner PA-C Department of Cardiology, [facility] This chart was completed in part utilizing Speech Voice Recognition Software. Grammatical errors, random word insertions, pronoun errors, and incomplete sentences are an occasional consequence of this system due to software limitations, ambient noise, and hardware issues. Any formal questions or concerns about the content, text, or information contained within the body of this dictation should be directly addressed to the provider for clarification. Admission and Anticipated Discharge Date Admission Date: October 29, 2023 Supervising Physician Co-Signing Physician Notes I have personally performed a history and physical examination on the patient. I have reviewed the advance practitioner's documentation, and I agree with, and take responsibility for the plan of care. 83-year-old female present to the emergency department with shortness of breath. 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 Diagnosed with atrial fibrillation and rapid ventricular response as well as acute decompensated heart failure on admission. Echocardiogram demonstrating mildly reduced LV systolic function, moderate right ventricular enlargement, moderate biatrial enlargement with moderate mitral and tricuspid regurgitation. Heart rate remains elevated on telemetry. Volume status improved. Looking good here today but heart rate still elevated. Will upward titrate metoprolol succinate as above Furosemide oral Volume status good Anticipate discharge in a.m. I spent a total of 20 minutes on the date of service in preparation, delivery, and documentation of the care provided to this patient, excluding any time spent in the performance of separately billed services. Subjective Patient resting in bed. Feeling ok. Anxious to go home. Denies chest pain or SOB. Notes generalized fatigue but not sleeping well. No dizziness. No sense of palpitations this morning. Patient believes the potassium is causing nausea. Wishes to stop supplement. Potassium levels have trended upward. Will discontinued and monitor. Review of Systems Review of Systems: All systems reviewed & are unremarkable except as noted in HPI & below Physical Exam Constitutional: WD/WN, vitals as above well nourished; no acute distress Neck: trachea midline, no thyromegaly Respiratory: normal respiratory effort Auscultation: lungs clear to auscultation bilaterally; no crackles, no rales and no wheezes Cardiovascular: Rate/Rhythm: + irregularly irregular Heart Sounds: normal S1 and normal S2; no murmur Vessels: no JVD Extremities: no edema Gastrointestinal (Abdomen): normal bowel sounds, soft, nontender, no hepatosplenomegaly Neurologic: PERRL, EOMI, accommodation nl, no face palsy, no dysarthria Psychiatric: A+Ox3, euthymic affect Results & Data Vital Signs (Past 12 Hours) Vital Signs Temp Pulse Pulse Resp BP Pulse Ox O2 Del Method 11/01/23 07:58 36.3 C L 105 H 16 136/98 96 Room Air 11/01/23 02:39 36.6 C 89 18 121/86 98 Room Air 10/31/23 23:14 103 H 10/31/23 22:43 36.6 C 90 18 113/82 97 Room Air Laboratory Results Cardiac Enzymes 11/01/23 Range/Units 05:48 AST 37 (13-39) U/L CBC 11/01/23 Range/Units 05:48 WBC 9.04 (4.8-10.8) K/ul RBC 4.67 (4.20-5.40) M/uL Hgb 14.6 (12.0-16.0) g/dl Hct 44.1 (37.0-47.0) % Plt Count 178 (130-400) K/uL Comprehensive Metabolic Panel 11/01/23 Range/Units 05:48 Sodium 138 (136-145) mmol/L Potassium 4.9 (3.5-5.1) mmol/L Chloride 103 (98-107) mmol/L Carbon Dioxide 28 (21-32) mmol/L BUN 32 H (6-23) mg/dl Creatinine 0.97 (0.6-1.2) mg/dl Glucose 124 H (70-99(Fasting)) mg/dl Calcium 9.9 (8.6-10.3) mg/dl AST 37 (13-39) U/L ALT 40 (7-52) U/L Alkaline Phosphatase 70 (34-104) U/L Total Protein 7.8 (6.0-8.3) gm/dl Albumin 3.9 (3.4-5.0) gm/dl Intake and Output 10/31/23 11/01/23 11/01/23 22:59 06:59 14:59 Intake Total 120 / 480 120 / 480 Output Total 100 / 100 Balance 20 / 380 120 / 380 Intake: Oral 120 / 480 120 / 480 Output: Urine 100 / 100 Other: Weight 68 kg Diagnostic Findings Telemetry reviewed: Afib rates 90-120's, trending downward. Medications Administered Current Inpatient Medications Acetaminophen (Acetaminophen 325 Mg Tab) 650 mg PO Q4H PRN PRN Reason: Pain or Fever Stop: 11/28/23 13:02 Al Hydrox/Mg Hydrox/Simethicone (Aluminum/Magnesium Susp 30 Ml Udc) 15 ml PO Q4H PRN PRN Reason: Dyspepsia Stop: 11/28/23 13:02 Last Admin: 10/31/23 02:19 Dose: 15 ml Apixaban (Apixaban 5 Mg Tablet) 5 mg PO BID [facility] Stop: 11/28/23 20:59 Last Admin: 10/31/23 20:24 Dose: 5 mg Calcium Carbonate (Calcium Carbonate 500 Mg Chewable Tab) 1,000 mg PO TID PRN PRN Reason: Indigestion Stop: 11/28/23 13:09 Last Admin: 11/01/23 03:54 Dose: 1,000 mg Furosemide (Furosemide 20 Mg Tab) 20 mg PO QAM [facility] Stop: 11/29/23 10:44 Last Admin: 10/31/23 08:03 Dose: 20 mg Promethazine HCl 6.25 mg/ (Sodium Chloride) 50.25 mls @ 201 mls/hr IV Q6H PRN PRN Reason: Nausea And Vomiting Stop: 11/29/23 22:40 Last Infusion: 10/30/23 23:39 Dose: Infused Losartan Potassium (Losartan Potassium 25 Mg Tab) 25 mg PO QAM [facility] Stop: 11/28/23 15:53 Last Admin: 10/31/23 08:02 Dose: 25 mg Magnesium Hydroxide (Magnesium Hydroxide Susp 30 Ml Udc) 30 ml PO Q12H PRN PRN Reason: Constipation Stop: 11/28/23 13:02 Magnesium Oxide (Magnesium Oxide 400 Mg Tab) 400 mg PO DAILY [facility] Stop: 11/29/23 08:59 Last Admin: 10/31/23 08:02 Dose: 400 mg Metoprolol Tartrate (Metoprolol Tartrate 1 Mg/Ml Vial) 5 mg IV Q5M PRN PRN Reason: Tachycardia Stop: 11/28/23 13:05 Metoprolol Tartrate (Metoprolol Tartrate 50 Mg Tab) 50 mg PO TID [facility] Stop: 11/30/23 12:29 Last Admin: 10/31/23 20:24 Dose: 50 mg Multivitamins (Multivitamin Tab) 1 tab PO DAILY [facility] Stop: 11/29/23 08:59 Last Admin: 10/31/23 08:02 Dose: 1 tab Pantoprazole Sodium (Pantoprazole 40 Mg Tab) 40 mg PO QAM [facility] Stop: 11/30/23 02:54 Last Admin: 10/31/23 03:22 Dose: 40 mg Potassium Chloride (Potassium Chloride 10 Meq Tabcr) 10 meq PO DAILY [facility] Stop: 11/29/23 10:44 Last Admin: 10/31/23 09:43 Dose: 10 meq Tramadol HCl (Tramadol Hcl 50 Mg Tablet) 25 mg PO Q4H PRN PRN Reason: Pain Stop: 11/30/23 03:30 Vitamin D (Cholecalciferol 125 Mcg (5,000 Units) Tab) 125 mcg PO DAILY [facility] Stop: 11/29/23 08:59 Last Admin: 10/31/23 08:03 Dose: 125 mcg (2) Acute exacerbation of CHF (congestive heart failure) Heart failure type: systolic Qualified Code(s): I50.23 - Acute on chronic systolic (congestive) heart failure
[2023-11-01] MEDS: METOPROLOL SUCC 50MG EXT REL TAB PO SCH (09:20)
--- NOTE | 2023-11-01 12:43 | Hospitalist Progress Note ---
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 BNP elevated at 457. Chest imaging with pulmonary edema Troponin 17.4, peaked and downtrended, likely demand ischemia. Patient denies chest pain. Admitting EKG with A-fib RVR with rate of 133, no prior diagnosis per outpatient chart review and per patient. Echo with EF of 40-45%, moderately reduced RV systolic function, RV moderately dilated, moderate biatrial enlargement TSH WNL Cardiology consulted, appreciate recs -po metoprolol tartrate 100mg TID at this time for rate control -continue home Eliquis 5mg BID -po Lasix 20 mg daily with potassium supplementation Kcl 10 mEq daily originally, KCl discontinued due to nausea -Consider transition of losartan to Entresto and addition of spironolactone Telemetry monitoring Anxiety She notes anxiety, especially at nighttime Agreeable to hydroxyzine trial 25mg qhs prn ordered Hx of PE Continue home eliquis as above Prediabetes Hgba1c of 6.4 Close pcp followup GERD Started on ppi, pantoprazole 40mg daily Other chronic medical conditions: HLD, HTN---- continue with/resume home meds as and when able. Diet: HH/Low sodium/FR DVT prophylaxis: on Eliquis Dispo: PT/OT ordered for further recs Admission and Anticipated Discharge Date Admission Date: October 29, 2023 Subjective pt was seen sitting in chair at bedside. States that she gets anxious, especially at night. Agreeable to a med to help at night. Denies chest pain, SOB or palpitation sensation. Review of Systems Review of Systems: All systems reviewed & are unremarkable except as noted in Subjective Physical Exam Physical Exam: General: Alert, oriented. No acute distress Skin: No noted rashes or bruises Psych: Appropriate mood and affect Neuro: No gross deficits HEENT: NC/AT CV: Irregular rate and rhythm Resp: Breath sounds clear bilaterally, no increased effort of breathing. Abdomen: Soft, nontender even in the epigastrium Extremities: edema in lower extremities bilaterally. Results & Data Results & Data Vital Signs (Past 12 Hours) Vital Signs Temp Pulse Pulse Resp BP Pulse Ox O2 Del Method 11/01/23 12:17 36.3 C L 100 H 17 125/87 97 Room Air 11/01/23 09:15 109 H 11/01/23 07:58 36.3 C L 105 H 16 136/98 96 Room Air 11/01/23 02:39 36.6 C 89 18 121/86 98 Room Air (1) Acute exacerbation of CHF (congestive heart failure) Heart failure type: systolic Qualified Code(s): I50.23 - Acute on chronic systolic (congestive) heart failure
[2023-11-01] MEDS: hydrOXYzine HCl 25 MG TAB PO PRN (21:26)
[2023-11-02 07:00] LABS: Hematocrit (blood only) 43.3 % (37.0-47.0); Mean Corpuscular Hemoglobin 30.4 pg (25.0-34.0); Mean Corpuscular Hgb Conc 32.3 g/dL (32.0-36.0); Mean Corpuscular Volume 94.1 fL (80.0-100.0); Mean Platelet Volume 11.2 fL (9.4-12.4); Platelet Count 163 K/uL (130-400); RDW Coefficient of Variation 14.1 % (11.5-14.5); RDW Standard Deviation 48.2 fL (36.4-46.3); White Blood Count 7.68 K/ul (4.8-10.8)
[2023-11-02 07:44] LABS: Alanine Aminotransferase 42 U/L (7-52); Albumin Level 3.6 gm/dl (3.4-5.0); Alkaline Phosphatase 61 U/L (34-104); Anion Gap 6 (3-11); BUN Creatinine Ratio 41.1 (10-20); Bilirubin,Total 0.9 mg/dl (0.2-1.0); Blood Urea Nitrogen 39 mg/dl (6-23); Calcium 9.8 mg/dl (8.6-10.3); Carbon Dioxide 28 mmol/L (21-32); Chloride 105 mmol/L (98-107); Est GFR (African American) 63.3 ml/min; Est GFR (Non-African American) 54.6 ml/min; Globulin 3.6 gm/dl (2.5-4.0); Glucose 119 mg/dl (70-99(Fasting)); Phosphorus 4.2 mg/dl (2.5-4.9); Sodium 139 mmol/L (136-145); Total Protein 7.2 gm/dl (6.0-8.3)
[2023-11-02 08:24] LABS: Potassium 4.2 mmol/L (3.5-5.1)
--- NOTE | 2023-11-02 11:32 | Cardiology Progress Note ---
Date of Service November 02, 2023 Assessment & Plan (1) Atrial fibrillation with RVR: (2) Acute exacerbation of CHF (congestive heart failure): (3) Hypertension: Plan Patient admitted with 3 weeks of worsening SOB, abdominal bloating, edema. Incidentally found to have afib RVR, likely contributing to worsening volume status. Pulm edema on chest xray and Chest CT. No PE on CT SOB and volume status improved with several doses of IV lasix. -2 L since admission with good urine outputs. Weight down about 3 kg. Appears euvolemic this morning. Transition to oral lasix 20 mg daily with low dose potassium. In regards to afib, new onset. She is already on Eliquis for history of pulmonary embolus. Continue anticoagulation with Eliquis 5 mg BID. Rates minimal improved with initiation of low dose metoprolol 12.5 mg daily Increase metoprolol to 25 mg BID and change to metoprolol succinate today. Ongoing rate control strategy likely recommended given lack of symptoms. Will review echo when available. Continue losartan for HTN. 10/31/23: Echo yesterday revealing mildly reduced LVEF at 40-45%, global hypokinesis. Reduced EF possibly due to afib RVR. Afib rates trending down but remain borderline elevated. Plan to increase metoprolol to 50 mg TID Continue Eliquis for anticoagulation. Tolerating oral Lasix/potassium. Renal function stable. Appears euvolemic. Consider starting Entresto in place of losartan 11/01/23: Volume status improved since admission. Continue furosemide. Potassium 4.9 this morning. Will discontinue potassium supplement. Possibly causing nausea BP improved. Afib, rates trending downward. Transition to metoprolol succinate 100 BID given reduced LVEF. Continue Eliquis. Continue losartan. Plan to transition to Entresto as outpatient. Will need to check cost prior to initiation. 11/02/23: Stable symptoms. Persistent afib with improved rates today. Continue metoprolol 100 mg BID. Continue losartan. Continue low dose furosemide. Arrange cardio f/u in 2-[address] [facility]. No further cardiac testing warranted. Stable from cardiac perspective to be discharged today. Case discussed with Dr. Chevy Lopez spent a total of 25 minutes on the date of service in preparation, delivery, and documentation of the care provided to this patient, excluding any time spent in the performance of separately billed services. Leslie Stoner PA-C Department of Cardiology, [facility] This chart was completed in part utilizing Speech Voice Recognition Software. Grammatical errors, random word insertions, pronoun errors, and incomplete sentences are an occasional consequence of this system due to software limitations, ambient noise, and hardware issues. Any formal questions or concerns about the content, text, or information contained within the body of this dictation should be directly addressed to the provider for clarification. Admission and Anticipated Discharge Date Admission Date: October 29, 2023 Supervising Physician Co-Signing Physician Notes I have personally performed a history and physical examination on the patient. I have reviewed the advance practitioner's documentation, and I agree with, and take responsibility for the plan of care. 83-year-old female present to the emergency department with shortness of breath. 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 Diagnosed with atrial fibrillation and rapid ventricular response as well as acute decompensated heart failure on admission. Echocardiogram demonstrating mi ldly reduced LV systolic function, moderate right ventricular enlargement, moderate biatrial enlargement with moderate mitral and tricuspid regurgitation. Heart rate remains elevated on telemetry. Volume status improved. Clinically improved and heart rate improved on current medical regimen Plan as outlined above. Stable for discharge today I spent a total of 20 minutes on the date of service in preparation, delivery, and documentation of the care provided to this patient, excluding any time spent in the performance of separately billed services. Subjective Patient sitting in chair. Feeling "good". Hoping for discharge today. SOB at baseline. No events overnight. Denies chest pain, SOB, dizziness, palpitations. no orthopnea, PND or edema. Review of Systems Review of Systems: All systems reviewed & are unremarkable except as noted in HPI & below Physical Exam Constitutional: WD/WN, vitals as above well nourished; no acute distress Neck: trachea midline, no thyromegaly Respiratory: normal respiratory effort Auscultation: lungs clear to auscultation bilaterally; no crackles, no rales and no wheezes Cardiovascular: Rate/Rhythm: + irregularly irregular Heart Sounds: normal S1 and normal S2; no murmur Vessels: no JVD Extremities: no edema Gastrointestinal (Abdomen): normal bowel sounds, soft, nontender, no hepatosplenomegaly Neurologic: PERRL, EOMI, accommodation nl, no face palsy, no dysarthria Psychiatric: A+Ox3, euthymic affect Results & Data Vital Signs (Past 12 Hours) Vital Signs Temp Pulse Pulse Resp BP BP Pulse Ox 11/02/23 07:50 36.3 C L 69 17 135/94 98 11/02/23 07:46 86 11/02/23 02:34 36.5 C 85 18 134/87 94 O2 Del Method 11/02/23 07:50 Room Air 11/02/23 07:46 11/02/23 02:34 Room Air Laboratory Results Cardiac Enzymes 11/02/23 11/02/23 Range/Units 06:20 07:49 AST TNP 36 CBC 11/02/23 Range/Units 06:20 WBC 7.68 (4.8-10.8) K/ul RBC 4.60 (4.20-5.40) M/uL Hgb 14.0 (12.0-16.0) g/dl Hct 43.3 (37.0-47.0) % Plt Count 163 (130-400) K/uL Comprehensive Metabolic Panel 11/02/23 11/02/23 Range/Units 06:20 07:49 Sodium 139 (136-145) mmol/L Potassium TNP 4.2 Chloride 105 (98-107) mmol/L Carbon Dioxide 28 (21-32) mmol/L BUN 39 H (6-23) mg/dl Creatinine 0.95 (0.6-1.2) mg/dl Glucose 119 H (70-99(Fasting)) mg/dl Calcium 9.8 (8.6-10.3) mg/dl AST TNP 36 ALT 42 (7-52) U/L Alkaline Phosphatase 61 (34-104) U/L Total Protein 7.2 (6.0-8.3) gm/dl Albumin 3.6 (3.4-5.0) gm/dl Intake and Output 11/01/23 11/02/23 11/02/23 22:59 06:59 14:59 Intake Total 720 / 840 120 / 840 Output Total 702 / 902 200 / 902 Balance 18 / -62 -80 / -62 Intake: Oral 720 / 840 120 / 840 Output: Urine 700 / 900 200 / 900 # Bowel Movements 2 / 2 Other: # Unmeasured Voids 1 Weight 68.2 kg Diagnostic Findings Telemetry reviewed: Persistent/chronic afib, rates improved. Currently 80-100 bmp (2) Acute exacerbation of CHF (congestive heart failure) Heart failure type: systolic Qualified Code(s): I50.23 - Acute on chronic systolic (congestive) heart failure
--- NOTE | 2023-11-02 12:42 | Discharge Summary ---
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 She is being managed for the following: Acute systolic (congestive) heart failure New onset A-fib with RVR Likely demand ischemia Presenting with shortness of breath, lower extremity swelling. BNP elevated at 457. Chest imaging with pulmonary edema Troponin 17.4, peaked and downtrended, likely demand ischemia. Patient denies chest pain. Admitting EKG with A-fib RVR with rate of 133, no prior diagnosis per outpatient chart review and per patient. Echo with EF of 40-45%, moderately reduced RV systolic function, RV moderately dilated, moderate biatrial enlargement TSH WNL Cardiology consulted, appreciate recs -po metoprolol succinate 100mg BID -continue home Eliquis 5mg BID -po Lasix 20 mg daily -Continue losartan -Close cardiology follow up after discharge Close PCP and cardiology followup after discharge Anxiety She notes anxiety, especially at nighttime Agreeable to hydroxyzine trial 25mg qhs prn ordered, pt states it helped Discharged with Vistaril 25mg qhs PRN for anxiety, close pcp followup Hx of PE Continue home eliquis as above Pulmonary Nodule RML, Noted on CT imaging, read as stable PCP followup for continued monitoring Prediabetes Hgba1c of 6.4 Close pcp followup GERD Started on ppi, pantoprazole 40mg daily Other chronic medical conditions: HLD, HTN---- continue with/resume home meds as and when able. 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 Patient does not have history of A-fib RVR or heart failure per patient and per OP chart review. Patient is not on any diuretics at home. She also reports her lower extremity swelling for about the same duration and upper belly discomfort for about the same duration with no radiation. Reports poor appetite/not feeling well, denies acute changes in bowel or bladder habit. Denied chest pain/sore throat/cough/fever. Also denies lower abdominal pain. Denies smoking/alcohol/recreational drug use. DNR/DNI Medications were discussed with the patient in detail. Plan of care were discussed with the patient is detail, she voiced understanding and was agreeable to plan of care. Admission Exam Per Admitting Provider GENERAL: Alert and oriented x3. NAD, on RA. HEENT: No pallor, no icterus. Pupils equal, round and reactive to light. Oral mucosa moist. NECK: No JVD, no neck masses. HEART: S1 and S2 heard. Regular rate and rhythm. No murmur, no gallop. RESPIRATORY SYSTEM: Normal AP diameter. No accessory muscle use. No wheezing, bb crackles. ABDOMEN: Soft, bowel sounds present, nontender, no distention. CENTRAL NERVOUS SYSTEM: No facial droop. Speech is clear. Obeys simple commands. Moves extremities. EXTREMITIES: 1+/trace BLE edema, no erythema seen. Discharge Exam General: Alert, oriented. No acute distress Skin: No noted rashes or bruises Psych: Appropriate mood and affect Neuro: No gross deficits HEENT: NC/AT CV: Irregular rate and rhythm Resp: Breath sounds clear bilaterally, no increased effort of breathing. Abdomen: Soft, nontender even in the epigastrium Extremities: edema in lower extremities bilaterally. Updated Medication List Medication Instructions Recorded Confirmed Type multivitamin 1 tab PO DAILY 02/24/22 10/29/23 History losartan 25 mg tablet 25 mg PO QAM #30 tabs 02/26/22 10/29/23 Rx cholecalciferol (vitamin D3) 125 125 mcg PO DAILY 03/08/22 10/29/23 History mcg (5,000 unit) tablet (Vitamin D3) magnesium oxide 500 mg PO DAILY 03/08/22 10/29/23 History niacin 500 mg tablet 500 mg PO DAILY 03/08/22 10/29/23 History apixaban 5 mg tablet (Eliquis) 5 mg PO BID #60 tabs 03/12/22 10/29/23 Rx furosemide 20 mg tablet 20 mg PO QAM #30 tabs 11/02/23 Rx hydroxyzine HCl 25 mg tablet 25 mg PO HS PRN anxiety #30 tabs 11/02/23 Rx metoprolol succinate 50 mg 100 mg (2 x 50 mg) PO BID #120 tabs 11/02/23 Rx tablet,extended release 24 hr Hospital Stay Data Consultations 10/29/23 12:22 ED Decision to Admit Stat 10/29/23 13:03 Consult Cardiology Routine Diagnostic Imagining Performed 10/29/23 08:47 CTA abdomen pelvis w con [CT angio abdomen pelvis w con] Stat CTA chest dissec wo/w con [CT angio chest dissec wo/w con] Stat 10/29/23 10:40 US gallbladder Stat Chest X-Ray 10/29/23 07:18 XR chest 1V portable HISTORY: 83 years-old Female Dyspnea acute shortness of breath COMPARISON: 03/08/2022 TECHNIQUE: AP view of the chest FINDINGS: Cardiac silhouette is enlarged. No pneumothorax or large pleural effusion. Mild bibasilar opacities. Pulmonary vascular congestion with interstitial coarsening. Degenerative changes of the shoulders and spine. Bones appear grossly intact. IMPRESSION: 1. Cardiomegaly with suggestion of mild pulmonary edema. 2. Mild bibasilar opacities may represent atelectasis versus pneumonitis. ACT 112: Negative or not required by law. The above report was generated using voice recognition software. It may contain grammatical, syntax or spelling errors. Electronically signed by: Dharmesh Estrada M.D. 10/29/2023 7:45 AM Abdomen/Pelvis CTA 10/29/23 08:47 CT angio chest dissec wo/w con, CT angio abdomen pelvis w con HISTORY: 83 years-old Female shortness of breath acute chest and abdominal pain COMPARISON: CT chest 03/08/2022, CT abdomen and pelvis 02/24/2022 TECHNIQUE: CTA of the chest was obtained with and without IV contrast. CTA of the abdomen and pelvis with IV contrast. All measurements were obtained according to NASCET criteria. 3-D coronal and sagittal maps were obtained and submitted for review. A dose lowering technique was used consistent with the principals of GURU. FINDINGS: CTA CHEST: Moderate cardiomegaly without pericardial effusion. Mild coronary artery calcifications. There is patency of the image great vessels. Mixing artifact is noted within the thoracic arch and descending thoracic aorta. No aneurysm, dissection, intramural or mediastinal hematoma. There is mild to moderate atherosclerosis of the thoracic aorta. Descending thoracic aortic tortuosity. Mild dilation of the pulmonary artery suggestive of pulmonary arterial hypertension. No pulmonary emboli identified. CT CHEST: Multinodular thyroid which demonstrated with 1.8 cm left-sided thyroid nodule. Nonspecific borderline enlarged subcarinal and hilar lymph nodes. Trace left and small right pleural effusions. No pneumothorax. Intralobular septal and bronchial wall thickening with intermixed groundglass densities. Mild subsegmental bibasilar consolidation. Stable hypodense 1.5 cm solid nodule within the medial segment right middle lobe. Stable 4 mm solid nodule of the basal right lower lobe on image 152. Thin-walled bibasilar cysts. Unremarkable soft tissues. No acute fracture. CTA ABDOMEN AND PELVIS: Mild atherosclerosis. No abdominal aortic aneurysm or dissection. Patency of the celiac, superior mesenteric and inferior mesenteric arteries. The renal arteries are also widely patent. There is a patent accessory left renal artery. The iliac and imaged femoral arteries appear patent. No aneurysm, dissection, high-grade stenosis or arterial occlusion. No active extravasation. CT ABDOMEN AND PELVIS: There is no pneumatosis or pneumoperitoneum. The unremarkable spleen, pancreas and adrenal glands. Bladder wall thickening with pericholecystic edema. No significant gallbladder distention. Portal edema is likely secondary to overhydration. The liver is enlarged measuring up to 19.4 cm in length. Prominent heterogeneous enhancement of the inferior pole left kidney. No hydronephrosis. Nonspecific urinary bladder wall thickening. No adnexal mass lesions identified. Trace free pelvic fluid. Subcentimeter retroperitoneal lymph nodes. Mild nonspecific distal esophageal wall thickening. No bowel obstruction. Noninflamed appendix. Unremarkable soft tissues. Degenerative changes of the spine, pelvis and hips. IMPRESSION: 1. Unremarkable CTA of the chest, abdomen and pelvis. 2. Cardiomegaly with pulmonary edema, trace left and small right pleural effusions. 3. Mild bibasilar opacities suggest atelectasis. 4. Trace free pelvic fluid is noted along with nonspecific pericholecystic ascites. Findings may be secondary to the fluid overload however could be evaluated with ultrasound to exclude acute cholecystitis. 5. Mildly decreased enhancement of the inferior pole left kidney. Correlation with urinalysis recommended. 6. Stable 1.5 cm hypodense nodule of the medial segment right middle lobe. 7. Additional findings as above. ACT 112: Negative or not required by law. The above report was generated using voice recognition software. It may contain grammatical, syntax or spelling errors. Electronically signed by: Dharmesh Estrada M.D. 10/29/2023 10:35 AM Chest CTA 10/29/23 08:47 CT angio chest dissec wo/w con, CT angio abdomen pelvis w con HISTORY: 83 years-old Female shortness of breath acute chest and abdominal pain COMPARISON: CT chest 03/08/2022, CT abdomen and pelvis 02/24/2022 TECHNIQUE: CTA of the chest was obtained with and without IV contrast. CTA of the abdomen and pelvis with IV contrast. All measurements were obtained according to NASCET criteria. 3-D coronal and sagittal maps were obtained and submitted for review. A dose lowering technique was used consistent with the principals of GURU. FINDINGS: CTA CHEST: Moderate cardiomegaly without pericardial effusion. Mild coronary artery calcifications. There is patency of the image great vessels. Mixing artifact is noted within the thoracic arch and descending thoracic aorta. No aneurysm, dissection, intramural or mediastinal hematoma. There is mild to moderate atherosclerosis of the thoracic aorta. Descending thoracic aortic to rtuosity. Mild dilation of the pulmonary artery suggestive of pulmonary arterial hypertension. No pulmonary emboli identified. CT CHEST: Multinodular thyroid which demonstrated with 1.8 cm left-sided thyroid nodule. Nonspecific borderline enlarged subcarinal and hilar lymph nodes. Trace left and small right pleural effusions. No pneumothorax. Intralobular septal and bronchial wall thickening with intermixed groundglass densities. Mild subsegmental bibasilar consolidation. Stable hypodense 1.5 cm solid nodule within the medial segment right middle lobe. Stable 4 mm solid nodule of the basal right lower lobe on image 152. Thin-walled bibasilar cysts. Unremarkable soft tissues. No acute fracture. CTA ABDOMEN AND PELVIS: Mild atherosclerosis. No abdominal aortic aneurysm or dissection. Patency of the celiac, superior mesenteric and inferior mesenteric arteries. The renal arteries are also widely patent. There is a patent accessory left renal artery. The iliac and imaged femoral arteries appear patent. No aneurysm, dissection, high-grade stenosis or arterial occlusion. No active extravasation. CT ABDOMEN AND PELVIS: There is no pneumatosis or pneumoperitoneum. The unremarkable spleen, pancreas and adrenal glands. Bladder wall thickening with pericholecystic edema. No significant gallbladder distention. Portal edema is likely secondary to overhydration. The liver is enlarged measuring up to 19.4 cm in length. Prominent heterogeneous enhancement of the inferior pole left kidney. No hydronephrosis. Nonspecific urinary bladder wall thickening. No adnexal mass lesions identified. Trace free pelvic fluid. Subcentimeter retroperitoneal lymph nodes. Mild nonspecific distal esophageal wall thickening. No bowel obstruction. Noninflamed appendix. Unremarkable soft tissues. Degenerative changes of the spine, pelvis and hips. IMPRESSION: 1. Unremarkable CTA of the chest, abdomen and pelvis. 2. Cardiomegaly with pulmonary edema, trace left and small right pleural effu sions. 3. Mild bibasilar opacities suggest atelectasis. 4. Trace free pelvic fluid is noted along with nonspecific pericholecystic ascites. Findings may be secondary to the fluid overload however could be evaluated with ultrasound to exclude acute cholecystitis. 5. Mildly decreased enhancement of the inferior pole left kidney. Correlation with urinalysis recommended. 6. Stable 1.5 cm hypodense nodule of the medial segment right middle lobe. 7. Additional findings as above. ACT 112: Negative or not required by law. The above report was generated using voice recognition software. It may contain grammatical, syntax or spelling errors. Electronically signed by: Dharmesh Estrada M.D. 10/29/2023 10:35 AM Gallbladder Ultrasound 10/29/23 10:40 US gallbladder CLINICAL HISTORY: abd pain; pericholecystic fluid on CT TECHNIQUE: Multiple real-time sonographic images of the right upper quadrant were obtained. Comparison: Comparison is made to CT abdomen pelvis 10/29/2023 FINDINGS: The liver is diffusely homogenous with normal contour and echogenicity. No focal mass lesions are seen. No intrahepatic ductal dilatation is seen. No gallstones or sludge are identified within the gallbladder. The gallbladder wall measures 3 mm. There is no pericholecystic fluid present. A sonographic Da Silva's sign was not elicited by the drapery cutter. The common duct measures 0.4 cm in diameter at the level of the hepatic artery. The visualized portions of the pancreas appear normal. The right kidney shows normal echogenicity, cortical thickness and renal contour. The right kidney shows no evidence of hydronephrosis. Parapelvic cysts are seen. Incidental note is made of a right pleural effusion. IMPRESSION: No evidence of acute cholecystitis. Additional findings as above. ACT 112: Negative or not required by law. Electronically signed by: Dameon Bass M.D. 10/29/2023 12:30 PM Pending Results Patient Have Any Pending Studies at Discharge: No Discharge Instructions Given to Patient (Per Discharging Provider) Ms. Ramires, You were seen and diagnosed with atrial fibrillation and congestive heart failure. You were seen by the executive associate who recommended the following: -continue with metoprolol succinate 100mg twice a day with your home Eliquis 5mg twice a day for the atrial fibrillation. -continue with the furosemide (Lasix) 20mg daily prescribed for your heart failure -Continue with your home losartan -follow up with Cardiology in 2-4 weeks You also requested a prescription for the Vistaril given to you while in the hospital to help with anxiety. That was sent to the pharmacy for you. Please keep close follow up with your primary care provider after discharge. Please do not hesitate to come back to the emergency room if your symptoms worsen or return. It was a pleasure taking care of you while you were here. Total Time Total Time Spent Total Time Spent (In Minutes): 75
[2023-11-02] MEDS ORDERED: METOPROLOL SUCC 50MG EXT REL TAB PO SCH (21:00)
== END 2023-11-02 14:57 | disposition home or self-care (01) | DRG 291 ==
LOC: ED 07:08 → EDINP 13:03 → SUATTDRO 13:03 → 2S 15:53